=== PATIENT | male | born 1955 | race American Indian/Alaskan Native ===

== ENCOUNTER 2016-06-24 21:18 | Inpatient (IN) | payer MEDICARE, OTHER ==
[2016-06-24 21:35] VITALS: BMI 26.5
[2016-06-24] MEDS ORDERED: Piperacillin/Tazobact 3.375 gm 100 ML IVPB STA (22:06)
[2016-06-24] MEDS ORDERED: Vancomycin 500 mg Inj IVPB STA (22:06)
--- NOTE | 2016-06-24 22:16 | ED PDOC ---
Arrival/HPI - General Chief Complaint: Lower Extremity Problem/Injury Time Seen by Provider: 06/24/16 21:19 - History of Present Illness Narrative History of Present Illness (Text): 60M c/o wound on his right ankle he noticed 2 days ago. he says he noticed some skin breakdown so he placed some ointment and a bandage which has been in place since. he has a chronic wound on the left leg for which he goes to the wound clinic. he denies any pain or fever. Past Medical History - Infectious Disease Hx of Infectious Diseases: None - Integumentary Other/Comment: Varicose Veins - Musculoskeletal/Rheumatological Hx Fractures: Yes (L hip) - Psychiatric Hx Substance Use: No - Surgical History Hx Joint Replacement: Yes (L THR) Other/Comment: L vein stripping - Anesthesia Hx Anesthesia: Yes Hx Anesthesia Reactions: No Hx Malignant Hyperthermia: No Family/Social History Family/Social History: Other (nc) Smoking Status: Former Smoker Hx Alcohol Use: Yes Frequency of alcohol use: Socially Hx Substance Use: No Allergies/Home Meds Allergies/Adverse Reactions: Allergies No Known Allergies Allergy (Verified 07/18/11 13:39) Home Medications: Home Meds Medication Instructions Recorded Confirmed No Known Home Med 06/24/16 06/24/16 Review of Systems - Physician Review All systems were reviewed & negative as marked: Yes - Review of Systems Constitutional: absent: Fevers Respiratory: absent: SOB, Cough Cardiovascular: absent: Chest Pain Gastrointestinal: absent: Abdominal Pain, Vomiting Skin: Ulcer Neurological: absent: Focal Weakness Physical Exam Vital Signs Reviewed: Yes Vital Signs Temp Pulse Resp BP Pulse Ox 06/24/16 21:40 98.6 F 90 18 143/91 H 98 Appearance: Positive for: Well-Appearing, Non-Toxic, Comfortable Pain Distress: None Mental Status: Positive for: Alert and Oriented X 3 - Systems Exam Head: Present: Atraumatic Pupils: Present: PERRL Mouth: Present: Moist Mucous Membranes Neck: Present: Normal Range of Motion Respiratory/Chest: Present: Clear to Auscultation. No: Accessory Muscle Use Cardiovascular: Present: Regular Rate and Rhythm Abdomen: No: Tenderness Upper Extremity: Present: NORMAL PULSES Lower Extremity: Present: Edema, NORMAL PULSES (DP pulses 2+), Other (there is a 2cm wound on the right anterior ankle with exposed extensor tendon. there is another wound over the medial ankle. no purulent drainage. ) Neurological: Present: GCS=15, Motor Func Grossly Intact, Normal Sensory Function Skin: Present: Warm, Dry Medical Decision Making ED Course and Treatment: 06/24/16 22:[address] Nelson who will admit 06/24/16 22:39 ecg- nsr 79, LVH, no acute ischemia - RAD Interpretation Radiology Orders: 06/24/16 22:06 ANKLE RIGHT 3 VIEWS ROUTINE [RAD] Stat - Medication Orders Current Medication Orders: Vancomycin HCl 1,200 mg/ (Sodium Chloride) 250 mls @ 167 mls/hr IV STAT STA Stop: 06/24/16 23:43 Discontinued Medications Piperacillin Sod/Tazobactam Sod (Zosyn 3.375 In Ns 100ml) 100 mls @ 200 mls/hr IVPB STAT STA PRN Reason: Protocol Stop: 06/24/16 22:35 Disposition/Present on Arrival - Present on Arrival Any Indicators Present on Arrival: No History of DVT/PE: No History of Uncontrolled Diabetes: No Urinary Catheter: No History of Decub. Ulcer: No History Surgical Site Infection Following: None - Disposition Have Diagnosis and Disposition been Completed?: Yes Diagnosis: Open ankle wound Disposition: HOSPITALIZED Disposition Time: 22:19 Patient Problems: Current Active Problems Problem Status Diagnosed Open ankle wound Acute Condition: STABLE
[2016-06-24 22:54] LABS: ADD MANUAL DIFF? NO
[2016-06-24 23:09] LABS: BASO # 0.04 K/mm3 (0.0-2.0); BASO % 0.3 % (0.0-3.0); EOS # 0.3 (0.0-0.7); EOS % 2.5 % (1.5-5.0); GRAN # 8.25 (1.4-6.5); GRAN % 65.4 % (50.0-68.0); HEMATOCRIT 41.3 % (42.0-52.0); LYMPH # 2.4 (1.2-3.4); LYMPH % 18.7 % (22.0-35.0); MEAN CELL VOLUME 92.4 fL (80.0-105.0); MEAN CORPUSCULAR HEMOGLOBIN 33.3 pg (25.0-35.0); MEAN CORPUSCULAR HGB CONC 36.1 g/dl (31.0-37.0); MONO # 1.7 (0.1-0.6); MONO % 13.1 % (1.0-6.0); PLATELET COUNT 230 10^3/uL (120.0-450.0); WHITE BLOOD COUNT 12.6 10^3/ul (4.5-11.0)
[2016-06-24 23:10] LABS: INR 1.14 (0.93-1.08)
[2016-06-24 23:11] LABS: ALB/GLOB RATIO 0.7 (1.1-1.8); ALKALINE PHOSPHATASE 99 U/L (38-133); ALT/SGPT 30 U/L (7-56); AST/SGOT 56 U/L (15-59); BILIRUBIN,TOTAL 1.3 mg/dL (0.2-1.3); BLOOD UREA NITROGEN 8 mg/dL (7-21); CALCIUM 9.3 mg/dL (8.4-10.5); CARBON DIOXIDE 26 mmol/L (21-33); CHLORIDE 96 mmol/L (98-107); GFR AFRICAN-AMERICAN > 60; GLUCOSE,RANDOM 109 mg/dL (70-110); POTASSIUM 3.5 mmol/L (3.6-5.0); SODIUM 135 mmol/L (132-148); TOTAL PROTEIN 9.9 g/dL (5.8-8.3)
--- NOTE | 2016-06-25 08:38 | RAD ---
PROCEDURE: Right Wrist Radiographs. HISTORY: wound COMPARISON: None. FINDINGS: BONES: No fracture. JOINTS: Severe degenerative changes with talonavicular spur formation SOFT TISSUES: Diffuse soft tissue swelling. OTHER FINDINGS: None. IMPRESSION: Degenerative changes. No acute fracture.
[2016-06-25] MEDS ORDERED: Oxycodone/Acetaminophen 5/325 mg Tab PO PRN (08:41)
[2016-06-25] MEDS ORDERED: Potassium Chloride 20 mEq ER Tab PO ONE (08:41)
[2016-06-25] MEDS: Vancomycin 1gm in NS 250ml 250 ML IVPB SCH ×2 (10:23→21:34)
[2016-06-25] MEDS: Piperacillin/Tazobact 3.375 gm 100 ML IVPB SCH ×2 (12:13→17:24)
--- NOTE | 2016-06-25 13:33 | CON ---
DATE: 06/25/2016 HISTORY OF PRESENT ILLNESS: A 60-year-old male well known to the [facility] Wound care t eam, seen at bedside for consultation, evaluation and management of recent ulcerations on his right l ower leg. The patient stated that when he got out of the shower on Monday, which was 3 days ago, he noticed drainage coming out of his right lower leg. In the following 2 days, the wounds got worse and he went to the Emergency Room Monday night. PAST MEDICAL HISTORY: Significant for severe peripheral vascular disease, hypertension and longstand ing lower extremity ulcerations. HOME MEDICATIONS: Include Norvasc. ALLERGIES: The patient has no known drug allergies. SOCIAL HISTORY: The patient lives alone, has no history of substance abuse. Denies smoking, was a f ormer heavy drinker. No longer drinks and denies illicit drug use. FAMILY HISTORY: Unremarkable. PAST SURGICAL HISTORY: Includes left venous stripping and left hip joint replacement. VITAL SIGNS: Reveal a temperature of 98.2, pulse rate of 92, blood pressure 137/93, respiratory rate of 20. LABORATORY DATA: Reveal a white count of 12.6, hemoglobin of 14.9, hematocrit of 41.3, platelet coun t of 230. Culture taken in the Emergency Room on 06/24 reveals gram-negative rods, gram-positive cocc i with sensitivities to follow. OBJECTIVE: Left lower leg is bandaged and shows no strikethrough or drainage. Right lower extremity presents with nonpalpable pedal pulses +2 nonpitting lower extremity edema. There are 2 full thickn ess ulcerations located at the distal anterior and distal medial aspect of the lower leg. The anteri or ulceration measures approximately 1.2 cm x 1.3 cm x 0.3 cm. There is visible exposed anterior tib ial tendon present. The medial ulceration presents measuring approximately 1.4 cm x 1.1 cm x 0.2 cm. Base of the ulceration is primarily a mixture of granular and fibrotic tissue. None of the ulcerat ions are draining purulence and there are no signs of abscess formation noted. ASSESSMENT: Full thickness venous ulcerations on the right lower leg with localized cellulitis. PLAN: The patient was examined. Labs and cultures were reviewed. X-rays report no radiographic santiago dence of osteomyelitis. However, given the depths of the anterior right lower leg wound, MRI is veronique anted to rule out any underlying abscess or osteomyelitis that may be present. The wounds were clean sed with normal sterile saline. We will apply Xeroform and a compression dressing. The patient is c urrently on Zosyn empirically and we will await culture and sensitivity results. Recommend immediate consults by vascular, specifically Dr. Sunny Jacobs, to evaluate arterial and venous Dopplers, which will be ordered today and recommend infectious disease consult to review culture and sensitivity and prescribe accordingly. The patient will be seen and followed daily. Chuckie Almazan DPM cc: [id number] TT: 06/25/2016 13:32:51 Confirmation # [id number] Dictation # [id number] girma
--- NOTE | 2016-06-25 13:39 | CP.PCM.CON ---
History of Present Illness - History of Present Illness History of Present Illness: 60 year old male with PMH of HTN, peripheral vascular disease, chronic lymphedema with venous stasis ulcers, left hip fracture S/P total hip replacement is admitted currently in [facility] because of worsening of ulcers on the right foot and ankle area, with some foul smell and drainage of fluid. The patient states it started about a week ago. He follows at the wound center with Dr. Escamilla and is still being treated for his left ankle ulcers. The patient states he has not been on antibiotics since late last year. He denies animal contacts, denies wading in water, no swimming, no walking barefoot on soil, no animal contacts, no insect bites. He also denies fever or chills, no nausea or vomiting, no chest pain, no SOB, no abdominal pain , no diarrhea, no dysuria, no headache or dizziness, no cough or colds, no sore throat, no blurring of vision. Infectious diseases consult is requested to further evaluate and manage. Review of Systems - Review of Systems All systems: reviewed and no additional remarkable complaints except (as per HPI ) Past Patient History - Infectious Disease Hx of Infectious Diseases: None - Past Social History Smoking Status: Never Smoked - CARDIAC Hx Cardiac Disorders: Yes Hx Hypertension: Yes Hx Peripheral Edema: Yes Hx Peripheral Vascular Disease: Yes - PULMONARY Hx Respiratory Disorders: No - NEUROLOGICAL Hx Neurological Disorder: No Other/Comment: wears eye glasses - HEENT Hx HEENT Problems: Yes Hx Blind: Yes (wears glasses) - RENAL Hx Chronic Kidney Disease: No - ENDOCRINE/METABOLIC Hx Endocrine Disorders: No - HEMATOLOGICAL/ONCOLOGICAL Hx Blood Disorders: No - INTEGUMENTARY Hx Dermatological Problems: No Other/Comment: skin breakdown due to venous stasis in BLE - MUSCULOSKELETAL/RHEUMATOLOGICAL Hx Musculoskeletal Disorders: Yes Hx Falls: No Hx Fractures: Yes (L HIP) Hx Unsteady Gait: Yes - GASTROINTESTINAL Hx Gastrointestinal Disorders: No - GENITOURINARY/GYNECOLOGICAL Hx Genitourinary Disorders: No - PSYCHIATRIC Hx Psychophysiologic Disorder: No - SURGICAL HISTORY Hx Surgeries: Yes Hx Joint Replacement: Yes (L total hip replacement) - ANESTHESIA Hx Anesthesia: Yes Hx Anesthesia Reactions: No Hx Malignant Hyperthermia: No Meds Allergies/Adverse Reactions: Allergies Allergy/AdvReac Type Severity Reaction Status Date / Time No Known Allergies Allergy Verified 05/14/12 13:39 - Medications Medications: Current Medications Amlodipine Besylate (Norvasc) 5 mg PO DAILY [facility]IS Oxycodone/Acetaminophen (Percocet 5/325 Mg Tab) 1 tab PO Q4H PRN PRN Reason: Pain, moderate (4-7) Stop: 06/28/16 08:42 Physical Exam - Constitutional Appears: Non-toxic, No Acute Distress - Head Exam Head Exam: NORMAL INSPECTION - ENT Exam ENT Exam: Mucous Membranes Moist - Neck Exam Neck exam: Negative for: Lymphadenopathy, Meningismus - Respiratory Exam Respiratory Exam: Decreased Breath Sounds - Cardiovascular Exam Cardiovascular Exam: +S1, +S2 - GI/Abdominal Exam GI & Abdominal Exam: Soft. absent: Tenderness - Extremities Exam Additional comments: left foot with dry dressings in place; right foot with open ulcers on the anterior portion of the ankle joint as well as the medial portion; there is diffuse swelling of the right ankle area with chronic skin changes; there is serosanguinous discharge from the ulcers with foul smell Results - Vital Signs Recent Vital Signs: Last Vital Signs Temp 98.2 F 06/25/16 08:17 Pulse 92 H 06/25/16 08:17 Resp 20 06/25/16 08:17 BP 137/93 H 06/25/16 08:17 Pulse Ox 96 06/25/16 08:17 - Labs Result Diagrams: 06/24/16 22:40 06/24/16 22:40 Labs: Laboratory Results - last 24 hr 06/24/16 22:40 WBC 12.6 H D RBC 4.47 Hgb 14.9 Hct 41.3 L MCV 92.4 MCH 33.3 MCHC 36.1 RDW 12.0 Plt Count 230 MPV 9.0 Gran % 65.4 Lymph % (Auto) 18.7 L [place] % (Auto) 13.1 H Eos % (Auto) 2.5 Baso % (Auto) 0.3 Gran # 8.25 H Lymph # 2.4 [place] # 1.7 H Eos # 0.3 Baso # 0.04 PT 12.3 H INR 1.14 H APTT 32.0 H Sodium 135 Potassium 3.5 L Chloride 96 L Carbon Dioxide 26 Anion Gap 17 BUN 8 Creatinine 0.7 Est GFR ( Amer) > 60 Est GFR (Non-Af Amer) > 60 Random Glucose 109 Calcium 9.3 Total Bilirubin 1.3 AST 56 ALT 30 Alkaline Phosphatase 99 Total Protein 9.9 H Albumin 4.2 Globulin 5.7 Albumin/Globulin Ratio 0.7 L Assessment & Plan - Assessment and Plan (Free Text) Plan: Assessment Sepsis probably secondary to infected right ankle ulcers with skin and skin structure infection R/O osteomyelitis, in a patient with venous stasis and chronic lymphedema HTN peripheral vascular disease chronic lymphedema with venous stasis ulcers left hip fracture S/P total hip replacement Plan Started patient on Vancomycin and Zosyn (based on previous cultures) pending wound cx, blood cx; follow up MRI of the right foot Follow up Podiatry recommendations Will follow clinically
--- NOTE | 2016-06-25 13:52 | CP.PCM.CON ---
<Daniel Henriquez - Last Filed: 06/26/16 05:45> History of Present Illness - History of Present Illness History of Present Illness: General Surgery Consult Note for Dr. Lyles CC: Right Leg Ulcer HPI: This is a 60M with a PMH of peripheral vascular disease, chronic lymphedema , venous stasis ulcers and HTN prsents to the ED due to a new ulcer that is present on his right ankle. He currently has a wrap on his left leg and ankle that he requested I not remove. He desicribes that he has a venous ulcer on that leg and that it was wrapped at the podiatry clinic with instruction not to remove it. On the right foot he describes a history of a dry scaling right lower extremity that had a wrap on it for his lymphedema. The patient reports that last week when removing his wrap from his leg a dry part fell off exposing a new foul smelling ulcer. He denies any fevers, or chills at home, any nausea vomiting or diarrhea. PMH: See above PSH: Left Hip replacement, left vein stripping ALL: NKDA Social: Former smoker, drinks weekly, denies drug use Family History: non contributory Review of Systems - Review of Systems All systems: reviewed and no additional remarkable complaints except - Integumentary Integumentary: Wounds Additional comments: Bilateral skin changes due to venous stasis, including pigment changes and ulcerations. Past Patient History - Infectious Disease Hx of Infectious Diseases: None - Past Social History Smoking Status: Never Smoked - CARDIAC Hx Cardiac Disorders: Yes Hx Hypertension: Yes Hx Peripheral Edema: Yes Hx Peripheral Vascular Disease: Yes - PULMONARY Hx Respiratory Disorders: No - NEUROLOGICAL Hx Neurological Disorder: No Other/Comment: wears eye glasses - HEENT Hx HEENT Problems: Yes Hx Blind: Yes (wears glasses) - RENAL Hx Chronic Kidney Disease: No - ENDOCRINE/METABOLIC Hx Endocrine Disorders: No - HEMATOLOGICAL/ONCOLOGICAL Hx Blood Disorders: No - INTEGUMENTARY Hx Dermatological Problems: No Other/Comment: skin breakdown due to venous stasis in BLE - MUSCULOSKELETAL/RHEUMATOLOGICAL Hx Musculoskeletal Disorders: Yes Hx Falls: No Hx Fractures: Yes (L HIP) Hx Unsteady Gait: Yes - GASTROINTESTINAL Hx Gastrointestinal Disorders: No - GENITOURINARY/GYNECOLOGICAL Hx Genitourinary Disorders: No - PSYCHIATRIC Hx Psychophysiologic Disorder: No - SURGICAL HISTORY Hx Surgeries: Yes Hx Joint Replacement: Yes (L total hip replacement) - ANESTHESIA Hx Anesthesia: Yes Hx Anesthesia Reactions: No Hx Malignant Hyperthermia: No Meds Allergies/Adverse Reactions: Allergies Allergy/AdvReac Type Severity Reaction Status Date / Time No Known Allergies Allergy Verified 07/18/11 13:39 - Medications Medications: Current Medications Amlodipine Besylate (Norvasc) 5 mg PO DAILY [facility] Last Admin: 06/25/16 10:36 Dose: Not Given Piperacillin Sod/Tazobactam Sod (Zosyn 3.375 In Ns 100ml) 100 mls @ 200 mls/hr IVPB Q6 REGIS PRN Reason: Protocol Stop: 07/02/16 12:01 Last Admin: 06/25/16 12:13 Dose: 200 mls/hr Vancomycin HCl (Vancomycin 1gm) 250 mls @ 167 mls/hr IVPB Q12H REGIS PRN Reason: Protocol Last Admin: 06/25/16 10:23 Dose: 167 mls/hr Oxycodone/Acetaminophen (Percocet 5/325 Mg Tab) 1 tab PO Q4H PRN PRN Reason: Pain, moderate (4-7) Stop: 06/28/16 08:42 Physical Exam - Constitutional Appears: Non-toxic, No Acute Distress - Head Exam Head Exam: ATRAUMATIC, NORMOCEPHALIC - Eye Exam Eye Exam: EOMI, Normal appearance - Respiratory Exam Respiratory Exam: NORMAL BREATHING PATTERN - Cardiovascular Exam Cardiovascular Exam: +S1, +S2 - GI/Abdominal Exam GI & Abdominal Exam: Soft. absent: Distended, Firm, Guarding - Extremities Exam Additional comments: Roughly 1.5 cm ulcer on the ventral aspect of the right ankle with exposed tendon, roughly 1.5 cm ulcer posterior to the medial maleolus without bony or tenous structures visualized. Hyperpigmented skin on the lower extremity. Right lower extremity bandaged. Foot warm with strong capillary refill. Upper extremity pulses palpable bilaterally. - Neurological Exam Neurological exam: Alert, Oriented x3 - Psychiatric Exam Psychiatric exam: Normal Affect, Normal Mood - Skin Skin Exam: Dry, Intact Results - Vital Signs Recent Vital Signs: Last Vital Signs Temp 98.2 F 06/25/16 08:17 Pulse 84 06/25/16 10:36 Resp 20 06/25/16 08:17 BP 130/92 H 06/25/16 10:36 Pulse Ox 96 06/25/16 08:17 - Labs Result Diagrams: 06/24/16 22:40 06/24/16 22:40 Labs: Laboratory Results - last 24 hr 06/24/16 22:40 WBC 12.6 H D RBC 4.47 Hgb 14.9 Hct 41.3 L MCV 92.4 MCH 33.3 MCHC 36.1 RDW 12.0 Plt Count 230 MPV 9.0 Gran % 65.4 Lymph % (Auto) 18.7 L [place] % (Auto) 13.1 H Eos % (Auto) 2.5 Baso % (Auto) 0.3 Gran # 8.25 H Lymph # 2.4 [place] # 1.7 H Eos # 0.3 Baso # 0.04 PT 12.3 H INR 1.14 H APTT 32.0 H Sodium 135 Potassium 3.5 L Chloride 96 L Carbon Dioxide 26 Anion Gap 17 BUN 8 Creatinine 0.7 Est GFR ( Amer) > 60 Est GFR (Non-Af Amer) > 60 Random Glucose 109 Calcium 9.3 Total Bilirubin 1.3 AST 56 ALT 30 Alkaline Phosphatase 99 Total Protein 9.9 H Albumin 4.2 Globulin 5.7 Albumin/Globulin Ratio 0.7 L Assessment & Plan - Assessment and Plan (Free Text) Assessment: This is a 60M with a PMH of peripheral vascular disease, chronic lymphedema, venous stasis ulcers who presents with 2 new RLE ulcers. Wound care consult Consult Podiatry ID recommends Sly zosyn Followup wound, blood cx Followup MRI Elevate foot, continue compressive dressing Continue care per primary team D/W Dr. Trupti Henriquez PGY-1 <Coy Lyles - Last Filed: 10/04/16 23:35> Results - Vital Signs Recent Vital Signs: Last Vital Signs Temp 98.9 F 07/05/16 07:30 Pulse 54 L 07/05/16 08:34 Resp 18 07/05/16 07:30 BP 115/80 07/05/16 07:30 Pulse Ox 99 07/05/16 07:30 - Labs Result Diagrams: 06/26/16 13:20 06/27/16 07:30 Assessment & Plan - Assessment and Plan (Free Text) Plan: Patient was seen and examined by me. I agree with assessment and plan as per resident's note. - Date & Time Date: 06/25/16 Time: 13:05
--- NOTE | 2016-06-25 20:06 | CARD ---
APPROVED REPORT EKG Measurement Heart [id number] <Conclusion> Normal sinus rhythm Possible Left atrial enlargement Left ventricular hypertrophy Abnormal ECG
[2016-06-26] MEDS: Piperacillin/Tazobact 3.375 gm 100 ML IVPB SCH ×4 (00:49→17:18)
[2016-06-26] MEDS: Vancomycin 1gm in NS 250ml 250 ML IVPB SCH ×2 (10:55→22:05)
--- NOTE | 2016-06-26 11:40 | US ---
PROCEDURE: Right lower extremity venous US HISTORY: Leg pain and swelling. Evaluate for DVT. PHYSICIAN(S): Sunny Jacobs M.D. TECHNIQUE: Duplex sonography and color-flow Doppler with graded compression were used to evaluate the deep venous system of the right lower extremity. FINDINGS: The visualized deep venous system of the right lower extremity is sonographically normal and compressible. Normal waveforms and augmentation are seen. There is no sonographic evidence for deep venous thrombosis in the visualized segments of the right lower extremity. IMPRESSION: 1. No sonographic evidence for deep venous thrombosis in the visualized segments of the right lower extremity.
[2016-06-26] MEDS: Enoxaparin 40 mg Syringe SC SCH (13:16)
[2016-06-26] MEDS: Thiamine 100 mg/ml Inj IM SCH (13:17)
[2016-06-26] MEDS: Multivitamin Therapeutic Tab PO SCH (13:17)
[2016-06-26 13:32] LABS: HEMATOCRIT 39.8 % (42.0-52.0); MEAN CELL VOLUME 93.2 fL (80.0-105.0); MEAN CORPUSCULAR HEMOGLOBIN 33.5 pg (25.0-35.0); MEAN CORPUSCULAR HGB CONC 35.9 g/dl (31.0-37.0); MEAN PLATELET VOLUME 8.8 fl (7.0-11.0); RED CELL DISTRIBUTION WIDTH 12.1 % (11.5-14.5); WHITE BLOOD COUNT 10.2 10^3/ul (4.5-11.0)
--- NOTE | 2016-06-26 15:36 | CP.PCM.PN ---
<Cydney Escudero - Last Filed: 06/26/16 15:37> Subjective - Date & Time of Evaluation Date of Evaluation: 06/26/16 Time of Evaluation: 11:30 - Subjective Subjective: General Surgery progress note for Dr. Lyles Pt s/e at bedside. CARLOS. Patient reports some pain in the right ankle where he has the ulcers but denies any fevers, chill, chest pain, calf pain, or shortness of breath Objective - Vital Signs/Intake and Output Vital Signs (last 24 hours): Temp Pulse Resp BP Pulse Ox 98.5 F 57 L 19 113/74 98 06/26/16 08:00 06/26/16 10:56 06/26/16 08:00 06/26/16 10:56 06/26/16 08:00 Intake and Output: 06/26/16 06/26/16 06:59 18:59 Intake Total 780 960 Output Total 1375 Balance -595 960 - Medications Medications: Current Medications Amlodipine Besylate (Norvasc) 5 mg PO DAILY [facility] Last Admin: 06/26/16 10:56 Dose: Not Given Chlordiazepoxide (Librium) 10 mg PO Q8 PRN; Protocol PRN Reason: Agitation Enoxaparin Sodium (Lovenox) 40 mg SC DAILY [facility] Last Admin: 06/26/16 13:16 Dose: 40 mg Piperacillin Sod/Tazobactam Sod (Zosyn 3.375 In Ns 100ml) 100 mls @ 200 mls/hr IVPB Q6 [facility]IS PRN Reason: Protocol Stop: 07/02/16 12:01 Last Admin: 06/26/16 13:18 Dose: 200 mls/hr Vancomycin HCl (Vancomycin 1gm) 250 mls @ 167 mls/hr IVPB Q12H [facility] PRN Reason: Protocol Last Admin: 06/26/16 10:55 Dose: 167 mls/hr Multivitamins (Thera Tab) 1 tab PO DAILY [facility] Last Admin: 06/26/16 13:17 Dose: 1 tab Oxycodone/Acetaminophen (Percocet 5/325 Mg Tab) 1 tab PO Q4H PRN PRN Reason: Pain, moderate (4-7) Stop: 06/28/16 08:42 Thiamine HCl (Vitamin B1 Inj) 100 mg IM DAILY [facility] Stop: 06/29/16 08:00 Last Admin: 06/26/16 13:17 Dose: 100 mg - Labs Labs: 06/26/16 13:20 06/24/16 22:40 PT 12.3 Seconds (9.9-11.8) H 06/24/16 22:40 INR 1.14 (0.93-1.08) H 06/24/16 22:40 APTT 32.0 Seconds (23.7-30.8) H 06/24/16 22:40 - Constitutional Appears: Well, Non-toxic, No Acute Distress - Head Exam Head Exam: ATRAUMATIC, NORMOCEPHALIC - Eye Exam Eye Exam: Normal appearance. absent: Conjunctival injection, Scleral icterus - ENT Exam ENT Exam: Mucous Membranes Moist, Normal Oropharynx - Respiratory Exam Respiratory Exam: NORMAL BREATHING PATTERN. absent: Accessory Muscle Use, Respiratory Distress - Cardiovascular Exam Cardiovascular Exam: RRR - GI/Abdominal Exam GI & Abdominal Exam: Soft. absent: Distended, Tenderness - Extremities Exam Extremities Exam: absent: Calf Tenderness, Pedal Edema, Tenderness Additional comments: Right lower leg wrapped in allie bandage, kerlex bandage, abd, and xeroform with moderate sero-sanguinous fluid. Full thickness ulcers revealing tendons in the anterior right ankle as well as a partial thickness ulcer over the medial malleolus. No evidence of erythema, purulent drainage, or active bleeding from either site. Left lower leg covered with dressing per podiatry. - Neurological Exam Neurological Exam: Alert, Awake, Oriented x3 - Psychiatric Exam Psychiatric exam: Normal Affect, Normal Mood - Skin Skin Exam: Dry, Normal Color, Warm Assessment and Plan - Assessment and Plan (Free Text) Assessment: This is a 60M with a PMH of peripheral vascular disease, chronic lymphedema, venous stasis ulcers who presents with 2 new RLE ulcers. Duplex lower extremity US: no DVT MRI lower exremity pending Plan: Wound care consult Follow up podiatry recs Antibiotics per ID Followup wound, blood cx Followup MRI Elevate foot, continue dressing changes Left leg dressing care per podiatry Continue care per primary team D/W Dr. Trupti Escudero, PGY1 <Coy Lyles - Last Filed: 10/04/16 23:36> Objective - Vital Signs/Intake and Output Vital Signs (last 24 hours): Temp Pulse Resp BP Pulse Ox 98.9 F 54 L 18 115/80 99 07/05/16 07:30 07/05/16 08:34 07/05/16 07:30 07/05/16 07:30 07/05/16 07:30 - Labs Labs: 06/26/16 13:20 06/27/16 07:30 PT 12.3 Seconds (9.9-11.8) H 06/24/16 22:40 INR 1.14 (0.93-1.08) H 06/24/16 22:40 APTT 32.0 Seconds (23.7-30.8) H 06/24/16 22:40 Assessment and Plan - Assessment and Plan (Free Text) Plan: Patient was seen and examined by me. I agree with assessment and plan as per resident's note.
--- NOTE | 2016-06-26 15:49 | MRI ---
MRI right tibia and fibula History: Medial soft tissue ulcer. Comparison: None available. Technique: Multi-echo multiplanar sequences were performed through the right tibia and fibula without the use of intravenous contrast. Findings: Prominent soft tissue ulceration seen within the medial soft tissues at the level of the medial malleolus. Prominent reticulation and edema within the circumferential soft tissues suggestive for an underlying cellulitis. Prominent patchy signal abnormality seen throughout the visualized musculature at the level of the ankle and calf musculature concerning for a myositis most prominent at the level of the anterior tibialis as well as the flexor hallucis longus muscles. No discrete abscess collection identified. In correlation with the plain x-ray, there is some mild cortical thickening of the medial cortex of the distal tibia without gross increased STIR signal. This may represent a chronic periostitis. No gross signal abnormality within the marrow of the visualized osseous structures to suggest an acute osteomyelitis. Incidentally noted are severe degenerative changes noted at the level of the midfoot with prominent bony hypertrophy and osteophytosis at the dorsal aspect of the midfoot. Impression: 1. Prominent soft tissue ulceration seen within the medial soft tissues at the level of the medial malleolus. 2. Prominent reticulation and edema within the circumferential soft tissues suggestive for an underlying cellulitis. 3. Prominent patchy signal abnormality seen throughout the visualized musculature at the level of the ankle and calf musculature concerning for a myositis most prominent at the level of the anterior tibialis as well as the flexor hallucis longus muscles. 4. No discrete abscess collection identified. 5. In correlation with the plain x-ray, there is some mild cortical thickening of the medial cortex of the distal tibia without gross increased STIR signal. This may represent a chronic periostitis. No gross signal abnormality within the marrow of the visualized osseous structures to suggest an acute osteomyelitis. 6. Incidentally noted are severe degenerative changes noted at the level of the midfoot with prominent bony hypertrophy and osteophytosis at the dorsal aspect of the midfoot. These findings were preliminarily reported at 6:01 p.m. on 06/25/[address] Kimo Miranda from [facility].
--- NOTE | 2016-06-26 16:09 | RAD ---
HISTORY: hips arthritis COMPARISON: No prior FINDINGS: BONES: Status post total left hip replacement with exuberant heterotopic calcification along the femoral head and neck. 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 Loosening is not excluded. Mild degenerative changes of the right hip. JOINTS: Normal. No osteoarthritis. SOFT TISSUE: Normal. OTHER FINDINGS: None . IMPRESSION: Status post total left hip replacement with exuberant heterotopic calcification along the femoral head and neck. 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 Loosening is not excluded.
[2016-06-27] MEDS: Piperacillin/Tazobact 3.375 gm 100 ML IVPB SCH ×2 (00:47→06:41)
[2016-06-27 08:26] LABS: BLOOD UREA NITROGEN 8 mg/dL (7-21); CALCIUM 8.8 mg/dL (8.4-10.5); CARBON DIOXIDE 27 mmol/L (21-33); CHLORIDE 101 mmol/L (95-110); GFR AFRICAN-AMERICAN > 60; GLUCOSE,RANDOM 115 mg/dL (70-110); MAGNESIUM 1.7 mg/dL (1.7-2.2); POTASSIUM 3.8 mmol/L (3.6-5.0); SODIUM 137 mmol/L (132-148)
--- NOTE | 2016-06-27 08:56 | PN ---
DATE: 06/26/2016 The patient is stable. No new complaint. Currently on IV antibiotics, seen by podiatry. ID consult has been ordered. Currently on vancomycin and Zosyn. PHYSICAL EXAMINATION: VITAL SIGNS: Temperature 98.5. Heart rate is 57, blood pressure 11____/74, respirations 19, saturat ion 98% on room air. HEAD AND NECK: Normal. No JVD, no thyromegaly. CHEST: Clear, good air entry. CARDIAC: First and second sounds are normal. ABDOMEN: Soft, nontender. EXTREMITIES: Edema bilaterally. The left leg is covered was gauze and socks. Right leg with the pr oblem has been dressing changed and covered already by podiatry. IMPRESSION AND PLAN: 1. Right leg cellulitis with full thickness tear of the skin plus tendon exposures. We will follow up with surgical podiatry. Continue IV antibiotics. Continue local wound care. We will get arteria l Doppler, as well as a venous Doppler, which was negative. Continue Lovenox on daily basis for deep venous thrombosis prevention. 2. Hypertension seems stable. We will discontinue Norvasc. 3. History of alcohol abuse. We will monitor for any delirium tremens. The patient is currently [employer] just in case if he has any symptoms, and getting multivitamins, and we will follow up c popeyeically. PLAN: Continue current treatment. Continue Lovenox, multivitamins. We will add Protonix. Garth Nelson MD cc: [phone] TT: 06/27/2016 08:55:47 Confirmation # [id number] Dictation # [id number]
--- NOTE | 2016-06-27 09:07 | HP ---
DATE OF HISTORY AND PHYSICAL: 06/25/2016. A 60-year-old male with history of both legs stasis dermatitis, recurrent infection and cellulitis, c hronic venous insufficiency. The patient came in to the hospital because of his leg ulcerations/open ing wounds. HISTORY OF PRESENT ILLNESS: A 60-year-old male with a history of drinking problem chronically. He a lso has history of chronic lymphedema and venous insufficiency. Seen by Dr. Escamilla in office as out patient. Came in because of his right foot. He tied it up to control his symptoms. For whatever re ason, the patient ended up with ulceration of his skin, more infections and exposure of his underlyin g structures, including tendons. The patient came to the ER for evaluation and decided to be admitte d for cellulitis. The patient does have a history of recurrent cellulitis, wound care for both legs. Left leg seems stable, but he still has wound dressing change and seems stable. The patient does h ave a problem ambulating due to his chronic hip arthritis. He does have a history of hip replacement and he has been using the cane. The patient also does have a drinking problem. He drinks every oth er day beers. SOCIAL HISTORY: Does not smoke, never smoked. No use of drugs. ALLERGIES: No known allergy. FAMILY HISTORY: Noncontributory. PAST MEDICAL HISTORY: As in the present illness, alcohol problem, hip replacement, bilateral leg jace ous stasis and swelling, recurrent cellulitis, ulceration, and he comes on a weekly basis to Dr. Daniella bolaños for dressing changes and wound care. REVIEW OF SYSTEMS: As in the present illness. PHYSICAL EXAMINATION: VITAL SIGNS: His temperature 98.3, heart rate 70, blood pressure 140/99, respirations 20, saturation 98%. HEAD AND NECK: Normal. No JVD, no thyromegaly. CHEST: Clear. CARDIAC: First and second sounds are normal. ABDOMEN: Soft, nontender. EXTREMITIES: There is bilateral leg edema. The left leg is wrapped with socks on it, but has a dres sing on the toes area and the whole foot, and seems stable. On the right foot, there is a wound with exposed tendons and cellulitis involving 2 parts of the foot, lateral and medial. The patient also h ad swelling of both legs. Also of his right foot he has a full-thickness venous ulceration of the ri ght lower extremity with localized cellulitis with anteromedial aspect exposed and full-thickness ulc eration of the skin. NEUROLOGIC: Normal. LABORATORY DATA: White count is elevated to 12.6, hemoglobin 14.9, hematocrit 41.3, platelets 230. Chemistry: Sodium 135, potassium 3.5, chloride 96, bicarbonate 26, BUN 8, creatinine 0.7. Liver fun ction test is normal. His total protein 9.9, a little bit elevated. Albumin/globulin is normal. IMPRESSION AND PLAN: 1. Cellulitis, chronic venous insufficiency, venous ulcerations. Will admit the patient. We will g et MRI, venous ultrasound, podiatry consult, IV antibiotic, ID consult. Culture the patient for any infection - wound culture, blood culture - and probably consider other testing. 2. History of chronic alcohol abuse. Will observe for any withdrawal symptoms. 3. History of hypertension. Will monitor. If necessary, will add blood pressure medication. 4. Continue current treatment. Follow up with other consultants. Garth Nelson MD cc: [phone] TT: 06/27/2016 09:07:01 mallory
[2016-06-27] MEDS: Thiamine 100 mg/ml Inj IM SCH (10:07)
[2016-06-27] MEDS: Enoxaparin 40 mg Syringe SC SCH (10:07)
[2016-06-27] MEDS: Pantoprazole 40 mg EC Tab PO SCH (10:07)
[2016-06-27] MEDS: Multivitamin Therapeutic Tab PO SCH (10:07)
[2016-06-27] MEDS: Vancomycin 1gm in NS 250ml 250 ML IVPB SCH ×2 (10:09→21:09)
--- NOTE | 2016-06-27 11:27 | CP.PCM.PN ---
<Quentin Stevens - Last Filed: 06/27/16 12:57> Subjective - Date & Time of Evaluation Date of Evaluation: 06/27/16 Time of Evaluation: 07:00 - Subjective Subjective: SURGERY PROGRESS NOTE FOR DR. LYLES 60M seen and examined at bedside. Patient dressing changed bedside. Complains about lower extremity pain on the right. denies fevers over night. Objective - Vital Signs/Intake and Output Vital Signs (last 24 hours): Temp Pulse Resp BP Pulse Ox 98.4 F 48 L 20 126/85 97 06/27/16 07:30 06/27/16 07:30 06/27/16 07:30 06/27/16 07:30 06/27/16 07:30 Intake and Output: 06/27/16 06/27/16 06:59 18:59 Intake Total 1020 Output Total 700 Balance 320 - Medications Medications: Current Medications Amlodipine Besylate (Norvasc) 5 mg PO DAILY [facility] Last Admin: 06/27/16 10:29 Dose: Not Given Chlordiazepoxide (Librium) 10 mg PO Q8 PRN; Protocol PRN Reason: Agitation Enoxaparin Sodium (Lovenox) 40 mg SC DAILY [facility] Last Admin: 06/27/16 10:07 Dose: 40 mg Vancomycin HCl (Vancomycin 1gm) 250 mls @ 167 mls/hr IVPB Q12H [facility] PRN Reason: Protocol Last Admin: 06/27/16 10:09 Dose: 167 mls/hr Multivitamins (Thera Tab) 1 tab PO DAILY [facility] Last Admin: 06/27/16 10:07 Dose: 1 tab Oxycodone/Acetaminophen (Percocet 5/325 Mg Tab) 1 tab PO Q4H PRN PRN Reason: Pain, moderate (4-7) Stop: 06/28/16 08:42 Pantoprazole Sodium (Protonix Ec Tab) 40 mg PO ACB [facility] Last Admin: 06/27/16 10:07 Dose: 40 mg Thiamine HCl (Vitamin B1 Inj) 100 mg IM DAILY [facility] Stop: 06/29/16 08:00 Last Admin: 06/27/16 10:07 Dose: 100 mg - Labs Labs: 06/26/16 13:20 06/27/16 07:30 PT 12.3 Seconds (9.9-11.8) H 06/24/16 22:40 INR 1.14 (0.93-1.08) H 06/24/16 22:40 APTT 32.0 Seconds (23.7-30.8) H 06/24/16 22:40 - Constitutional Appears: Non-toxic, No Acute Distress - Respiratory Exam Respiratory Exam: Clear to Ausculation Bilateral, NORMAL BREATHING PATTERN - Cardiovascular Exam Cardiovascular Exam: REGULAR RHYTHM, +S1, +S2 - GI/Abdominal Exam GI & Abdominal Exam: Soft. absent: Distended, Firm, Guarding, Rigid, Tenderness , Rebound - Extremities Exam Additional comments: Right lower leg wrapped in allie bandage, kerlex bandage, abd, and xeroform with moderate sero-sanguinous fluid. Full thickness ulcers revealing tendons in the anterior right ankle as well as a partial thickness ulcer over the medial malleolus. No evidence of erythema, purulent drainage, or active bleeding from either site. Left lower leg dressing per podiatry. Assessment and Plan - Assessment and Plan (Free Text) Assessment: 60M with a PMH of peripheral vascular disease, chronic lymphedema, venous stasis ulcers who presents with 2 RLE ulcers. Duplex lower extremity US: no DVT MRI lower exremity - does not suggest acute osteomyelitis Plan: Follow up podiatry recs Antibiotics per ID Followup wound cx - MRSA, blood cx - negative Elevate foot, continue dressing changes Left leg dressing care per podiatry Continue care per primary team Further recs discuss with Dr. Trupti Stevens, PGY1 <Coy Lyles - Last Filed: 10/04/16 23:36> Objective - Vital Signs/Intake and Output Vital Signs (last 24 hours): Temp Pulse Resp BP Pulse Ox 98.9 F 54 L 18 115/80 99 07/05/16 07:30 07/05/16 08:34 07/05/16 07:30 07/05/16 07:30 07/05/16 07:30 - Labs Labs: 06/26/16 13:20 06/27/16 07:30 PT 12.3 Seconds (9.9-11.8) H 06/24/16 22:40 INR 1.14 (0.93-1.08) H 06/24/16 22:40 APTT 32.0 Seconds (23.7-30.8) H 06/24/16 22:40 Assessment and Plan - Assessment and Plan (Free Text) Plan: Patient was seen and examined by me. I agree with assessment and plan as per resident's note.
--- NOTE | 2016-06-27 15:37 | US ---
PROCEDURE: Lower extremity ELENA exam HISTORY: Peripheral vascular disease with pain and ulceration. Previous smoker PHYSICIAN(S): Sunny Jacobs MD. FINDINGS: The resting ELENA's are abnormally elevated: Right, 1.36 and left, 1.56 The brachial systolic pressures are symmetric. The high thigh pressures and waveforms are relatively normal. The PVR waveforms and pressures are normal on the right. On the left, there is no significant pressure gradient. However the PVR waveforms at the calf, ankle, and metatarsal level are decreased in amplitude. This may represent an issue with the cuffs are artifact. IMPRESSION: 1. Relatively normal ELENA and PVR examination at rest.
--- NOTE | 2016-06-27 16:54 | CON ---
DATE: 06/27/2016 I saw the patient briefly and discussed the case with Dr. Escamilla. The patient has bilateral stasis changes. A new ulceration on the right prompted admission. In addition, he has trauma induced ulceration, left leg, which Dr. Escamilla has been treating related to his prosthetic hip. The patient is somewhat noncompliant due to alcohol use and does not wear compression stockings at all times. His ELENA/PVR exam is fairly unremarkable. No further vascular workup is needed at this time. He does need compression for his stasis changes. Ideally, he would be evaluated for possible revision of his hip prosthesis if that is possible. It is difficult to adequately offload the patient in his current condition. Sunny Jacobs MD cc: [phone] TT: 06/27/2016 16:53:40 Confirmation # [id number] Dictation # [id number] MTDD
--- NOTE | 2016-06-27 17:28 | CP.PCM.PN ---
<Leila Brooke - Last Filed: 06/27/16 17:25> Subjective - Date & Time of Evaluation Date of Evaluation: 06/27/16 Time of Evaluation: 17:25 - Subjective Subjective: 60 y/o male seen at bedside with attending Dr. Escamilla for right leg wound with exposed tendon. Patient has been seeing for his left lower extremity but a few days ago noticed drainage coming from his right leg. Patient denies any acute events overnight. He denies any pain to his lower extremities. patient 's dressing remains c/d/i. Patient denies n/f/v/c/d/sob. Objective - Vital Signs/Intake and Output Vital Signs (last 24 hours): Temp Pulse Resp BP Pulse Ox 99.4 F 64 20 104/67 100 06/27/16 16:00 06/27/16 16:00 06/27/16 16:00 06/27/16 16:00 06/27/16 16:00 Intake and Output: 06/27/16 06/27/16 06:59 18:59 Intake Total 1020 720 Output Total 700 600 Balance 320 120 - Medications Medications: Current Medications Amlodipine Besylate (Norvasc) 5 mg PO DAILY [facility] Last Admin: 06/27/16 10:29 Dose: Not Given Chlordiazepoxide (Librium) 10 mg PO Q8 PRN; Protocol PRN Reason: Agitation Enoxaparin Sodium (Lovenox) 40 mg SC DAILY [facility] Last Admin: 06/27/16 10:07 Dose: 40 mg Vancomycin HCl (Vancomycin 1gm) 250 mls @ 167 mls/hr IVPB Q12H [facility] PRN Reason: Protocol Last Admin: 06/27/16 10:09 Dose: 167 mls/hr Multivitamins (Thera Tab) 1 tab PO DAILY [facility] Last Admin: 06/27/16 10:07 Dose: 1 tab Oxycodone/Acetaminophen (Percocet 5/325 Mg Tab) 1 tab PO Q4H PRN PRN Reason: Pain, moderate (4-7) Stop: 06/28/16 08:42 Pantoprazole Sodium (Protonix Ec Tab) 40 mg PO ACB [facility] Last Admin: 06/27/16 10:07 Dose: 40 mg Thiamine HCl (Vitamin B1 Inj) 100 mg IM DAILY [facility] Stop: 06/29/16 08:00 Last Admin: 06/27/16 10:07 Dose: 100 mg - Labs Labs: 06/26/16 13:20 06/27/16 07:30 PT 12.3 Seconds (9.9-11.8) H 06/24/16 22:40 INR 1.14 (0.93-1.08) H 06/24/16 22:40 APTT 32.0 Seconds (23.7-30.8) H 06/24/16 22:40 - Constitutional Appears: Well, Non-toxic, No Acute Distress - Extremities Exam Additional comments: Vasc: nonpalpable pedal pulses, +2 pitting edema, CFT < 4 sec to all digits, TG wnl Neuro: grossly diminished left lower extremity dressing remains c/d/i right lower extremity: derm= 2 full thickness ulcerations at the distal anterior and distal medial aspect of lower leg- anterior ulceration measures 1.2cm x 1.3cm x0.3cm- visible exposed anterior tibial tendon- mild serous drainage, no purulence, medial ulceration measures 1.4cm x 1.1cm x 0.2cm- base of the ulcerations are mixed fibrogranular, no signs of abscess or ascending cellulitis - Neurological Exam Neurological Exam: Alert, Awake, Oriented x3 - Psychiatric Exam Psychiatric exam: Normal Affect, Normal Mood Assessment and Plan - Assessment and Plan (Free Text) Assessment: 60 y/o male seen at bedside for right lower extremity full thickness ulceration with exposed tendon Plan: patient evaluated and chart reviewed seen at bedside with attending Dr. Escamilla labs and vitals reviewed; afebrile wound cx= MRSA applied xeroform, DSD, ABD, kerlix to RLE left leg dressing remains intact patient scheduled to go to OR on monday afternoon for graft application continue IV abx as per ID Duplex lower extremity US: no DVT MRI lower exremity - does not suggest acute osteomyelitis podiatry will continue to follow while patient remains in house <Nancie Escamilla - Last Filed: 07/10/16 13:54> Objective - Vital Signs/Intake and Output Vital Signs (last 24 hours): Temp Pulse Resp BP Pulse Ox 98.9 F 54 L 18 115/80 99 07/05/16 07:30 07/05/16 08:34 07/05/16 07:30 07/05/16 07:30 07/05/16 07:30 - Labs Labs: 06/26/16 13:20 06/27/16 07:30 PT 12.3 Seconds (9.9-11.8) H 06/24/16 22:40 INR 1.14 (0.93-1.08) H 06/24/16 22:40 APTT 32.0 Seconds (23.7-30.8) H 06/24/16 22:40 Attending/Attestation - Attestation I have personally seen and examined this patient.: Yes I have fully participated in the care of the patient.: Yes I have reviewed all pertinent clinical information, including history, physical exam and plan: Yes
--- NOTE | 2016-06-27 22:13 | CP.PCM.PN ---
Subjective - Date & Time of Evaluation Date of Evaluation: 06/27/16 Time of Evaluation: 12:20 - Subjective Subjective: Comfortable, afebrile, not in distress. Objective - Vital Signs/Intake and Output Vital Signs (last 24 hours): Temp Pulse Resp BP Pulse Ox 99.4 F 64 20 104/67 100 06/27/16 16:00 06/27/16 16:00 06/27/16 16:00 06/27/16 16:00 06/27/16 16:00 Intake and Output: 06/27/16 06/28/16 18:59 06:59 Intake Total 720 600 Output Total 600 600 Balance 120 0 - Medications Medications: Current Medications Chlordiazepoxide (Librium) 10 mg PO Q8 PRN; Protocol PRN Reason: Agitation Enoxaparin Sodium (Lovenox) 40 mg SC DAILY [facility] Last Admin: 06/27/16 10:07 Dose: 40 mg Vancomycin HCl (Vancomycin 1gm) 250 mls @ 167 mls/hr IVPB Q12H [facility] PRN Reason: Protocol Last Admin: 06/27/16 21:09 Dose: 167 mls/hr Multivitamins (Thera Tab) 1 tab PO DAILY [facility] Last Admin: 06/27/16 10:07 Dose: 1 tab Oxycodone/Acetaminophen (Percocet 5/325 Mg Tab) 1 tab PO Q4H PRN PRN Reason: Pain, moderate (4-7) Stop: 06/28/16 08:42 Pantoprazole Sodium (Protonix Ec Tab) 40 mg PO ACB [facility] Last Admin: 06/27/16 10:07 Dose: 40 mg Thiamine HCl (Vitamin B1 Inj) 100 mg IM DAILY [facility] Stop: 06/29/16 08:00 Last Admin: 06/27/16 10:07 Dose: 100 mg - Labs Labs: 06/26/16 13:20 06/27/16 07:30 PT 12.3 Seconds (9.9-11.8) H 06/24/16 22:40 INR 1.14 (0.93-1.08) H 06/24/16 22:40 APTT 32.0 Seconds (23.7-30.8) H 06/24/16 22:40 - Constitutional Appears: Non-toxic, No Acute Distress - Head Exam Head Exam: NORMAL INSPECTION - Respiratory Exam Respiratory Exam: Decreased Breath Sounds - Cardiovascular Exam Cardiovascular Exam: +S1, +S2 - GI/Abdominal Exam GI & Abdominal Exam: Soft. absent: Tenderness - Extremities Exam Additional comments: right foot with dressings in place Assessment and Plan - Assessment and Plan (Free Text) Plan: Assessment Sepsis probably secondary to infected right ankle ulcers with skin and skin structure infection and myositis with exposed tendon without evidence of osteomyelitis on MRI, in a patient with venous stasis and chronic lymphedema HTN peripheral vascular disease chronic lymphedema with venous stasis ulcers left hip fracture S/P total hip replacement Plan continue Vancomycin and Zosyn (day 3) pending alverto lwound cx, blood cx results; patient is for skin grafting this week Will follow clinically
--- NOTE | 2016-06-28 08:02 | CP.PCM.PN ---
<Davide Malik - Last Filed: 06/28/16 08:04> Subjective - Date & Time of Evaluation Date of Evaluation: 06/28/16 Time of Evaluation: 08:03 - Subjective Subjective: Dr. Davide Malik PGY1 Surgery Note for Dr. Lyles Patient seen and examined at bedside this AM with team; denies any fevers/chills , TRONCOSO, SOB, abdominal pain, N/V/D, dysuria/freq/urg, or lower extemity swelling. Objective - Vital Signs/Intake and Output Vital Signs (last 24 hours): Temp Pulse Resp BP Pulse Ox 97.8 F 51 L 20 110/80 96 06/28/16 07:30 06/28/16 07:30 06/28/16 07:30 06/28/16 07:30 06/28/16 07:30 Intake and Output: 06/28/16 06/28/16 06:59 18:59 Intake Total 600 Output Total 600 Balance 0 - Medications Medications: Current Medications Chlordiazepoxide (Librium) 10 mg PO Q8 PRN; Protocol PRN Reason: Agitation Enoxaparin Sodium (Lovenox) 40 mg SC DAILY [facility] Last Admin: 06/27/16 10:07 Dose: 40 mg Vancomycin HCl (Vancomycin 1gm) 250 mls @ 167 mls/hr IVPB Q12H [facility] PRN Reason: Protocol Last Admin: 06/27/16 21:09 Dose: 167 mls/hr Multivitamins (Thera Tab) 1 tab PO DAILY [facility] Last Admin: 06/27/16 10:07 Dose: 1 tab Oxycodone/Acetaminophen (Percocet 5/325 Mg Tab) 1 tab PO Q4H PRN PRN Reason: Pain, moderate (4-7) Stop: 06/28/16 08:42 Pantoprazole Sodium (Protonix Ec Tab) 40 mg PO ACB [facility] Last Admin: 06/27/16 10:07 Dose: 40 mg Thiamine HCl (Vitamin B1 Inj) 100 mg IM DAILY [facility] Stop: 06/29/16 08:00 Last Admin: 06/27/16 10:07 Dose: 100 mg - Labs Labs: 06/26/16 13:20 06/27/16 07:30 PT 12.3 Seconds (9.9-11.8) H 06/24/16 22:40 INR 1.14 (0.93-1.08) H 06/24/16 22:40 APTT 32.0 Seconds (23.7-30.8) H 06/24/16 22:40 - Constitutional Appears: Non-toxic - Head Exam Additional comments: Head Exam: ATRAUMATIC, NORMOCEPHALIC - Eye Exam Eye Exam: EOMI, Normal appearance - Respiratory Exam Respiratory Exam: NORMAL BREATHING PATTERN - Cardiovascular Exam Cardiovascular Exam: +S1, +S2 - GI/Abdominal Exam GI & Abdominal Exam: Soft. absent: Distended, Firm, Guarding - Extremities Exam Additional comments: Roughly 1.5 cm ulcer on the ventral aspect of the right ankle with exposed tendon, roughly 1.5 cm ulcer posterior to the medial maleolus. Hyperpigmented skin on the lower extremity. Right lower extremity bandaged; clean dry and intact. Foot warm with strong capillary refill. Upper extremity pulses palpable bilaterally. - Neurological Exam Neurological exam: Alert, Oriented x3 - Psychiatric Exam Psychiatric exam: Normal Affect, Normal Mood - Skin Skin Exam: Dry, Intact Assessment and Plan - Assessment and Plan (Free Text) Assessment: 60M with a PMHx of PAD, chronic lymphedema, venous stasis ulcers who presents with 2 RLE ulcers. Plan: Duplex lower extremity US: no DVT MRI lower exremity - does not suggest acute osteomyelitis Follow up podiatry recs; will continue as per their recs Antibiotics per ID Followup wound cx - MRSA, blood cx - negative Elevate foot, continue dressing changes Left leg dressing care per podiatry Continue care per primary team Further recs discuss with Dr. Trupti Malik PGY1 Surgery Note for Dr. Lyles <Coy Lyles - Last Filed: 10/04/16 23:37> Objective - Vital Signs/Intake and Output Vital Signs (last 24 hours): Temp Pulse Resp BP Pulse Ox 98.9 F 54 L 18 115/80 99 07/05/16 07:30 07/05/16 08:34 07/05/16 07:30 07/05/16 07:30 07/05/16 07:30 - Labs Labs: 06/26/16 13:20 06/27/16 07:30 PT 12.3 Seconds (9.9-11.8) H 06/24/16 22:40 INR 1.14 (0.93-1.08) H 06/24/16 22:40 APTT 32.0 Seconds (23.7-30.8) H 06/24/16 22:40 Assessment and Plan - Assessment and Plan (Free Text) Plan: Patient was seen and examined by me. I agree with assessment and plan as per resident's note.
--- NOTE | 2016-06-28 08:54 | PN ---
DATE: 06/27/2016 A 60-year-old male who has full thickness tear of his anterior foot due to his chronic venous insuffi ciency, chronic stasis dermatitis, chronic leg ulcers, seems to get worse after wrapping his leg by h imself with high pressure, and then resulting to cellulitis with full thickness tear. The patient wi ll go for surgery tomorrow. He has no chest pain, no short of breath, no history of cardiac disease, no nausea, no vomiting. PHYSICAL EXAMINATION: VITAL SIGNS: Temperature 99.4, heart rate 64, blood pressure 104/67, respirations 20, saturation 100 %. HEAD AND NECK: Normal. No JVD, no thyromegaly. CHEST: Clear, good air entry. CARDIAC: First and second sounds are normal. ABDOMEN: Soft, nontender. EXTREMITIES: Right leg is wrapped with gauze and has been seen by Dr. Escamilla. LABORATORY DATA: Last lab, his white count 10.2, hemoglobin 14.3, hematocrit 39.8, platelets 269. H is PT/INR 1.2. His chemistry shows sodium 137, potassium 3.8, chloride 101, bicarb 27, BUN 8, creati nine 0.8, blood sugar 115. Magnesium 1.7. IMPRESSION AND PLAN: 1. Right leg cellulitis, full thickness tear, going for grafting. Continue IV antibiotic, as per in fectious disease consult by Dr. Powell. Currently on vancomycin. 2. History of methicillin-resistant Staphylococcus aureus in the past. 3. History of alcohol abuse. Continue Librium p.r.n. Continue vitamin B1, multivitamins, and follo w up clinically. 4. The patient has difficult ambulation, is most of the time bedridden. Continue Lovenox 40 subQ da jaswant. Continue Protonix 40 IV daily for gastrointestinal prophylaxis and Lovenox for deep venous thro mbosis prophylaxis. 5. Hypertension, seems resolved. We will discontinue Norvasc. The patient seems to be doing okay. Heart rate controlled in the low 70s, and blood pressure seems stable. Continue current treatments. Follow up clinically. The patient is stable, going for surgery. Garth Nelson MD cc: [phone] TT: 06/28/2016 08:53:44 Confirmation # [id number] Dictation # [id number] jn
[2016-06-28] MEDS: Multivitamin Therapeutic Tab PO SCH (10:08)
[2016-06-28] MEDS: Pantoprazole 40 mg EC Tab PO SCH (10:08)
[2016-06-28] MEDS: Thiamine 100 mg/ml Inj IM SCH (10:08)
[2016-06-28] MEDS: Enoxaparin 40 mg Syringe SC SCH (10:08)
[2016-06-28] MEDS: Vancomycin 1gm in NS 250ml 250 ML IVPB SCH ×2 (10:09→21:25)
--- NOTE | 2016-06-28 10:26 | CP.PCM.PN ---
<Maria Esther Brookea - Last Filed: 06/28/16 10:24> Subjective - Date & Time of Evaluation Date of Evaluation: 06/28/16 Time of Evaluation: 10:24 - Subjective Subjective: 60 y/o male seen at bedside for right leg wound with exposed tendon. Patient denies any acute events overnight. He denies any pain to his lower extremities. patient's dressing remains c/d/i. Patient denies n/f/v/c/d/sob. Objective - Vital Signs/Intake and Output Vital Signs (last 24 hours): Temp Pulse Resp BP Pulse Ox 97.8 F 51 L 20 110/80 96 06/28/16 07:30 06/28/16 07:30 06/28/16 07:30 06/28/16 07:30 06/28/16 07:30 Intake and Output: 06/28/16 06/28/16 06:59 18:59 Intake Total 600 Output Total 600 Balance 0 - Medications Medications: Current Medications Chlordiazepoxide (Librium) 10 mg PO Q8 PRN; Protocol PRN Reason: Agitation Enoxaparin Sodium (Lovenox) 40 mg SC DAILY [facility] Last Admin: 06/28/16 10:08 Dose: 40 mg Vancomycin HCl (Vancomycin 1gm) 250 mls @ 167 mls/hr IVPB Q12H [facility] PRN Reason: Protocol Last Admin: 06/28/16 10:09 Dose: 167 mls/hr Multivitamins (Thera Tab) 1 tab PO DAILY [facility] Last Admin: 06/28/16 10:08 Dose: 1 tab Pantoprazole Sodium (Protonix Ec Tab) 40 mg PO ACB [facility] Last Admin: 06/28/16 10:08 Dose: 40 mg Thiamine HCl (Vitamin B1 Inj) 100 mg IM DAILY [facility] Stop: 06/29/16 08:00 Last Admin: 06/28/16 10:08 Dose: 100 mg - Labs Labs: 06/26/16 13:20 06/27/16 07:30 PT 12.3 Seconds (9.9-11.8) H 06/24/16 22:40 INR 1.14 (0.93-1.08) H 06/24/16 22:40 APTT 32.0 Seconds (23.7-30.8) H 06/24/16 22:40 - Constitutional Appears: Well, Non-toxic, No Acute Distress - Extremities Exam Additional comments: Vasc: nonpalpable pedal pulses, +2 pitting edema, CFT < 4 sec to all digits, TG wnl Neuro: grossly diminished left lower extremity dressing remains c/d/i right lower extremity: derm= 2 full thickness ulcerations at the distal anterior and distal medial aspect of lower leg- anterior ulceration measures 1.2cm x 1.3cm x0.3cm- visible exposed anterior tibial tendon- mild serous drainage, no purulence, medial ulceration measures 1.4cm x 1.1cm x 0.2cm- base of the ulcerations are mixed fibrogranular, no signs of abscess or ascending cellulitis - Neurological Exam Neurological Exam: Alert, Awake, Oriented x3 - Psychiatric Exam Psychiatric exam: Normal Affect, Normal Mood Assessment and Plan - Assessment and Plan (Free Text) Assessment: 60 y/o male seen at bedside for right lower extremity full thickness ulceration with exposed tendon Plan: patient evaluated and chart reviewed discussed in detail with attending Dr. Almazan labs and vitals reviewed; afebrile wound cx= MRSA applied xeroform, DSD, ABD, kerlix to RLE left leg dressing remains intact patient scheduled to go to OR on monday afternoon for graft application patient NPO after breakfast tomorrow continue IV abx as per ID Duplex lower extremity US: no DVT MRI lower exremity - does not suggest acute osteomyelitis podiatry will continue to follow while patient remains in house <Chuckie Almazan - Last Filed: 06/28/16 12:41> Objective - Vital Signs/Intake and Output Vital Signs (last 24 hours): Temp Pulse Resp BP Pulse Ox 97.8 F 51 L 20 110/80 96 06/28/16 07:30 06/28/16 07:30 06/28/16 07:30 06/28/16 07:30 06/28/16 07:30 Intake and Output: 06/28/16 06/28/16 06:59 18:59 Intake Total 600 Output Total 600 Balance 0 - Medications Medications: Current Medications Chlordiazepoxide (Librium) 10 mg PO Q8 PRN; Protocol PRN Reason: Agitation Enoxaparin Sodium (Lovenox) 40 mg SC DAILY [facility] Last Admin: 06/28/16 10:08 Dose: 40 mg Vancomycin HCl (Vancomycin 1gm) 250 mls @ 167 mls/hr IVPB Q12H [facility] PRN Reason: Protocol Last Admin: 06/28/16 10:09 Dose: 167 mls/hr Multivitamins (Thera Tab) 1 tab PO DAILY [facility] Last Admin: 06/28/16 10:08 Dose: 1 tab Pantoprazole Sodium (Protonix Ec Tab) 40 mg PO ACB [facility] Last Admin: 06/28/16 10:08 Dose: 40 mg Thiamine HCl (Vitamin B1 Inj) 100 mg IM DAILY [facility] Stop: 06/29/16 08:00 Last Admin: 06/28/16 10:08 Dose: 100 mg - Labs Labs: 06/26/16 13:20 06/27/16 07:30 PT 12.3 Seconds (9.9-11.8) H 06/24/16 22:40 INR 1.14 (0.93-1.08) H 06/24/16 22:40 APTT 32.0 Seconds (23.7-30.8) H 06/24/16 22:40 Attending/Attestation - Attestation I have personally seen and examined this patient.: Yes I have fully participated in the care of the patient.: Yes I have reviewed all pertinent clinical information, including history, physical exam and plan: Yes
[2016-06-29] MEDS: Pantoprazole 40 mg EC Tab PO SCH ×2 (08:01→08:03)
[2016-06-29] MEDS: Multivitamin Therapeutic Tab PO SCH (09:03)
[2016-06-29] MEDS: Enoxaparin 40 mg Syringe SC SCH (09:03)
[2016-06-29] MEDS: Vancomycin 1gm in NS 250ml 250 ML IVPB SCH ×2 (09:23→21:34)
--- NOTE | 2016-06-29 10:02 | CP.PCM.PN ---
<Daniel Henriquez - Last Filed: 06/29/16 13:12> Subjective - Date & Time of Evaluation Date of Evaluation: 06/29/16 Time of Evaluation: 06:57 - Subjective Subjective: General Surgery Progress Note for Dr. Lyles This 60M was seen and examined this AM at bedside. He reports no acute events overnight. Patient is going today for a flap with Dr. Gilliam. Denies any fevers , chills, chest pain, nausea, vomiting, diarrhea. Objective - Vital Signs/Intake and Output Vital Signs (last 24 hours): Temp Pulse Resp BP Pulse Ox 98.4 F 58 L 20 105/75 96 06/29/16 07:26 06/29/16 07:26 06/29/16 07:26 06/29/16 07:26 06/29/16 07:26 Intake and Output: 06/29/16 06/29/16 06:59 18:59 Intake Total 850 Output Total 1350 Balance -500 - Medications Medications: Current Medications Chlordiazepoxide (Librium) 10 mg PO Q8 PRN; Protocol PRN Reason: Agitation Enoxaparin Sodium (Lovenox) 40 mg SC DAILY [facility] Last Admin: 06/29/16 09:03 Dose: Not Given Vancomycin HCl (Vancomycin 1gm) 250 mls @ 167 mls/hr IVPB Q12H [facility] PRN Reason: Protocol Last Admin: 06/29/16 09:23 Dose: 167 mls/hr Multivitamins (Thera Tab) 1 tab PO DAILY [facility] Last Admin: 06/29/16 09:03 Dose: Not Given Pantoprazole Sodium (Protonix Ec Tab) 40 mg PO ACB [facility] Last Admin: 06/29/16 08:03 Dose: Not Given - Labs Labs: 06/26/16 13:20 06/27/16 07:30 PT 12.3 Seconds (9.9-11.8) H 06/24/16 22:40 INR 1.14 (0.93-1.08) H 06/24/16 22:40 APTT 32.0 Seconds (23.7-30.8) H 06/24/16 22:40 - Constitutional Appears: Non-toxic - Head Exam Head Exam: ATRAUMATIC, NORMOCEPHALIC - Eye Exam Eye Exam: EOMI, Normal appearance - ENT Exam ENT Exam: Mucous Membranes Moist, Normal Exam - Respiratory Exam Respiratory Exam: NORMAL BREATHING PATTERN - Cardiovascular Exam Cardiovascular Exam: +S1, +S2 - GI/Abdominal Exam GI & Abdominal Exam: Soft. absent: Rigid, Tenderness - Extremities Exam Additional comments: Dressing clean dry and intact - Neurological Exam Neurological Exam: Alert, Awake - Psychiatric Exam Psychiatric exam: Normal Affect, Normal Mood - Skin Skin Exam: Dry, Normal Color Assessment and Plan - Assessment and Plan (Free Text) Assessment: This is a 60M with a PMH of peripheral vascular disease, chronic lymphedema, venous stasis ulcers who presents with 2 new RLE ulcers. OR today with podiatry for flap placement. Elevate foot, continue compressive dressing Continue care per primary team D/W Dr. Trupti Henriquez PGY-1 <Coy Lyles - Last Filed: 10/04/16 23:37> Objective - Vital Signs/Intake and Output Vital Signs (last 24 hours): Temp Pulse Resp BP Pulse Ox 98.9 F 54 L 18 115/80 99 07/05/16 07:30 07/05/16 08:34 07/05/16 07:30 07/05/16 07:30 07/05/16 07:30 - Labs Labs: 06/26/16 13:20 06/27/16 07:30 PT 12.3 Seconds (9.9-11.8) H 06/24/16 22:40 INR 1.14 (0.93-1.08) H 06/24/16 22:40 APTT 32.0 Seconds (23.7-30.8) H 06/24/16 22:40 Assessment and Plan - Assessment and Plan (Free Text) Plan: Patient was seen and examined by me. I agree with assessment and plan as per resident's note.
--- NOTE | 2016-06-29 10:25 | CP.PCM.PN ---
<Leila Brooke - Last Filed: 06/29/16 10:22> Subjective - Date & Time of Evaluation Date of Evaluation: 06/29/16 Time of Evaluation: 10:22 - Subjective Subjective: 60 y/o male seen at bedside with attending Dr. Escamilla for right leg wound with exposed tendon. Patient is going to the OR this afternoon for right leg wound debridement with graft application. Patient NPO after breakfast. Patient denies any acute events overnight. He denies any pain to his lower extremities. patient 's dressing remains c/d/i. Patient denies n/f/v/c/d/sob. Objective - Vital Signs/Intake and Output Vital Signs (last 24 hours): Temp Pulse Resp BP Pulse Ox 98.4 F 58 L 20 105/75 96 06/29/16 07:26 06/29/16 07:26 06/29/16 07:26 06/29/16 07:26 06/29/16 07:26 Intake and Output: 06/29/16 06/29/16 06:59 18:59 Intake Total 850 Output Total 1350 Balance -500 - Medications Medications: Current Medications Chlordiazepoxide (Librium) 10 mg PO Q8 PRN; Protocol PRN Reason: Agitation Enoxaparin Sodium (Lovenox) 40 mg SC DAILY [facility] Last Admin: 06/29/16 09:03 Dose: Not Given Vancomycin HCl (Vancomycin 1gm) 250 mls @ 167 mls/hr IVPB Q12H [facility] PRN Reason: Protocol Last Admin: 06/29/16 09:23 Dose: 167 mls/hr Multivitamins (Thera Tab) 1 tab PO DAILY [facility] Last Admin: 06/29/16 09:03 Dose: Not Given Pantoprazole Sodium (Protonix Ec Tab) 40 mg PO ACB [facility] Last Admin: 06/29/16 08:03 Dose: Not Given - Labs Labs: 06/26/16 13:20 06/27/16 07:30 PT 12.3 Seconds (9.9-11.8) H 06/24/16 22:40 INR 1.14 (0.93-1.08) H 06/24/16 22:40 APTT 32.0 Seconds (23.7-30.8) H 06/24/16 22:40 - Constitutional Appears: Well, Non-toxic, No Acute Distress - Extremities Exam Additional comments: Vasc: nonpalpable pedal pulses, +2 pitting edema, CFT < 4 sec to all digits, TG wnl Neuro: grossly diminished left lower extremity dressing remains c/d/i right lower extremity: derm= 2 full thickness ulcerations at the distal anterior and distal medial aspect of lower leg- anterior ulceration measures 1.2cm x 1.3cm x0.3cm- visible exposed anterior tibial tendon- mild serous drainage, no purulence, medial ulceration measures 1.4cm x 1.1cm x 0.2cm- base of the ulcerations are mixed fibrogranular, no signs of abscess or ascending cellulitis - Neurological Exam Neurological Exam: Alert, Awake, Oriented x3 - Psychiatric Exam Psychiatric exam: Normal Affect, Normal Mood Assessment and Plan - Assessment and Plan (Free Text) Assessment: 60 y/o male seen at bedside for right lower extremity full thickness ulceration with exposed tendon going to OR at 4:30pm today for right leg wound debridement and graft application Plan: patient evaluated and chart reviewed seen at bedside with attending Dr. Escamilla labs and vitals reviewed; afebrile dressing remains c/d/i patient to OR at 4:[address] Escamilla for right leg wound debridement and graft application discussed with patient risks, benefits, complications of surgery medical optimization obtained continue IV abx as per ID podiatry will continue to monitor while patient remains in house <Nancie Escamilla - Last Filed: 07/10/16 13:54> Objective - Vital Signs/Intake and Output Vital Signs (last 24 hours): Temp Pulse Resp BP Pulse Ox 98.9 F 54 L 18 115/80 99 07/05/16 07:30 07/05/16 08:34 07/05/16 07:30 07/05/16 07:30 07/05/16 07:30 - Labs Labs: 06/26/16 13:20 06/27/16 07:30 PT 12.3 Seconds (9.9-11.8) H 06/24/16 22:40 INR 1.14 (0.93-1.08) H 06/24/16 22:40 APTT 32.0 Seconds (23.7-30.8) H 06/24/16 22:40 Attending/Attestation - Attestation I have personally seen and examined this patient.: Yes I have fully participated in the care of the patient.: Yes I have reviewed all pertinent clinical information, including history, physical exam and plan: Yes
--- NOTE | 2016-06-29 10:28 | PN ---
DATE: 06/28/2016 SUBJECTIVE: The patient is lying in bed, comfortable, having lunch. No chest pain, no short of adrián th, going for surgery tomorrow. No tremors, no nausea, no vomiting. PHYSICAL EXAMINATION: VITAL SIGNS: Temperature is 97.8, heart rate 51, blood pressure 110/80, respirations 20, saturation 96% on room air. HEAD AND NECK: Normal. No JVD. No thyromegaly. CHEST: Clear, good entry. CARDIAC: First and second sounds are normal. ABDOMEN: Soft, normal. EXTREMITIES: Bilateral leg edema from chronic venous stasis. Right leg is wrapped with gauze. Dres sing has been changed by Dr. Almazan. IMPRESSION AND PLAN: 1. Cellulitis, right leg, with complete skin tear, going for grafting. Continue IV antibiotic as pe r ID consult. Currently, the patient getting vancomycin. The patient does have a history of methici llin-resistant Staphylococcus aureus. 2. History of chronic alcohol abuse. Continue Librium p.r.n. basis, Protonix, Lovenox for deep veno us thrombosis prophylaxis, multivitamins, and he finished thiamine IM. Continue current treatment. W e will follow up clinically. Garth Nelson MD cc: [phone] TT: 06/29/2016 10:28:07 Confirmation # [id number] Dictation # [id number] elier
[2016-06-29] MEDS ORDERED: Bupivacaine 0.5% Inj(30mL) ONE (15:58)
[2016-06-29] MEDS ORDERED: Lidocaine 2% Inj (20ml) ONE ×2 (15:58→16:32)
[2016-06-29] MEDS ORDERED: Propofol 10 mg/ml Inj (20 ML) ONE ×2 (16:31→17:27)
[2016-06-29] MEDS ORDERED: Midazolam 2 MG/2 ML VIAL ONE (16:31)
[2016-06-29] MEDS ORDERED: Gentamicin 80 mg/2mL Inj. ONE (16:54)
--- NOTE | 2016-06-29 17:41 | PCM.SURG1 ---
Surgeon's Initial Post Op Note - Surgeon's Notes Surgeon: Dr. Escamilla Tack Welder: Dr. Brooke PGY-1 Type of Anesthesia: MAC, Local Anesthesia Administered By: Dr. Manzanares Pre-Operative Diagnosis: right ankle nonhealing ulceration Operative Findings: see dictation. 9mL 2% lidocaine plain. skin gila. integra graft 2x2 inch. Post-Operative Diagnosis: same as preop Operation Performed: right ankle wound debridement with graft application Specimen/Specimens Removed: soft tissue Estimated Blood Loss: EBL {In ML}: 5 Blood Products Given: N/A Drains Used: No Drains Post-Op Condition: Good Date of Surgery/Procedure: 06/29/16 Time of Surgery/Procedure: 17:00
[2016-06-29] MEDS ORDERED: HYDROmorphone 0.5 mg/0.5 ml ISec IVP PRN (17:42)
[2016-06-29] MEDS ORDERED: Lactated Ringer's 1,000 ML IV SCH (17:42)
[2016-06-29] MEDS ORDERED: Oxycodone/Acetaminophen 5/325 mg Tab PO PRN (17:42)
[2016-06-29] MEDS: Oxycodone/Acetaminophen 5/325 mg Tab PO PRN (21:37)
--- NOTE | 2016-06-29 21:55 | CP.PCM.PN ---
Subjective - Date & Time of Evaluation Date of Evaluation: 06/29/16 Time of Evaluation: 12:25 - Subjective Subjective: Patient is for surgery today, no fevers. Objective - Vital Signs/Intake and Output Vital Signs (last 24 hours): Temp Pulse Resp BP Pulse Ox 98.5 F 52 L 17 105/72 99 06/29/16 18:39 06/29/16 18:39 06/29/16 18:39 06/29/16 18:39 06/29/16 18:39 Intake and Output: 06/29/16 06/30/16 18:59 06:59 Intake Total 705 Output Total 1200 Balance -495 - Medications Medications: Current Medications Acetaminophen (Tylenol 325mg Tab) 650 mg PO Q4H PRN PRN Reason: Pain, Mild (1-3) Chlordiazepoxide (Librium) 10 mg PO Q8 PRN; Protocol PRN Reason: Agitation Clotrimazole (Lotrimin 1%) 0 gm TOP BID [facility] Enoxaparin Sodium (Lovenox) 40 mg SC DAILY [facility] Last Admin: 06/29/16 09:03 Dose: Not Given Vancomycin HCl (Vancomycin 1gm) 250 mls @ 167 mls/hr IVPB Q12H [facility] PRN Reason: Protocol Last Admin: 06/29/16 21:34 Dose: 167 mls/hr Multivitamins (Thera Tab) 1 tab PO DAILY [facility] Last Admin: 06/29/16 09:03 Dose: Not Given Ondansetron HCl (Zofran Inj) 4 mg IVP ONCE PRN PRN Reason: Nausea/Vomiting Oxycodone/Acetaminophen (Percocet 5/325 Mg Tab) 1 tab PO Q4H PRN PRN Reason: Pain, moderate (4-7) Stop: 07/02/16 17:43 Last Admin: 06/29/16 21:37 Dose: 1 tab Oxycodone/Acetaminophen (Percocet 5/325 Mg Tab) 2 tab PO Q4H PRN PRN Reason: Pain, severe (8-10) Stop: 07/02/16 17:43 Pantoprazole Sodium (Protonix Ec Tab) 40 mg PO ACB [facility] Last Admin: 06/29/16 08:03 Dose: Not Given - Labs Labs: 06/26/16 13:20 06/27/16 07:30 PT 12.3 Seconds (9.9-11.8) H 06/24/16 22:40 INR 1.14 (0.93-1.08) H 06/24/16 22:40 APTT 32.0 Seconds (23.7-30.8) H 06/24/16 22:40 - Constitutional Appears: Non-toxic, No Acute Distress - Head Exam Head Exam: NORMAL INSPECTION - ENT Exam ENT Exam: Mucous Membranes Moist - Neck Exam Neck Exam: absent: Lymphadenopathy, Meningismus - Respiratory Exam Respiratory Exam: Decreased Breath Sounds - Cardiovascular Exam Cardiovascular Exam: +S1, +S2 - GI/Abdominal Exam GI & Abdominal Exam: Soft. absent: Tenderness Assessment and Plan - Assessment and Plan (Free Text) Plan: Assessment Sepsis probably secondary to infected right ankle ulcers with skin and skin structure infection and myositis with exposed tendon without evidence of osteomyelitis on MRI, in a patient with venous stasis and chronic lymphedema, growing MRSA - for skin grafting today HTN peripheral vascular disease chronic lymphedema with venous stasis ulcers left hip fracture S/P total hip replacement Plan continue Vancomycin (day 4); follow up results of the OR Will follow clinically
--- NOTE | 2016-06-29 22:22 | PN ---
DATE: 06/29/2016 HISTORY OF PRESENT ILLNESS: The patient is sitting in the bed, comfortable, no distress, afebrile. B lood pressure stable, currently on vancomycin IV antibiotic and going for surgery for graft. No othe r complaint. No chest pain, not short of breath. PHYSICAL EXAMINATION: VITAL SIGNS: Temperature 98.5, heart rate 60, blood pressure 104/59, respirations 16, saturating 99% on 3 liters nasal cannula. HEAD AND NECK: Normal. No JVD, no thyromegaly. CHEST: Clear, good entry. CARDIAC: First sound, second sound normal. ABDOMEN: Soft, obese, nontender. EXTREMITIES: Right leg is wrapped with gauze all around the ankle area and left leg with under lying multilayer of gauze. NEUROLOGIC: The patient moves all extremities. He is alert, awake, oriented x 3. IMPRESSION AND PLAN: 1. Right leg cellulitis, full thickness tear of the skin and going for graft. Continue IV antibioti c, vancomycin. 2. History of alcohol abuse, drinking alcohol. Continue thiamine. Continue multivitamins. Librium p.r.n. for that reason. Continue gastrointestinal and deep venous thrombosis prophylaxis. We will f ollow up clinically. Garth Nelson MD cc: [phone] TT: 06/29/2016 22:22:14 Confirmation # [id number] Dictation # [id number] ln
[2016-06-30] MEDS: Pantoprazole 40 mg EC Tab PO SCH (07:44)
[2016-06-30] MEDS: Oxycodone/Acetaminophen 5/325 mg Tab PO PRN (07:44)
--- NOTE | 2016-06-30 07:52 | OP ---
PROCEDURE DATE: 06/29/2016 SURGEON: Dr. Nancie Escamilla, DPCar. FIELD TRAINING MANAGER: Dr. Hoang, PGY-1. CAFE WORKER: Dr. Hebert Manzanares. ANESTHESIA: IV sedation with local. PREOPERATIVE DIAGNOSIS: Nonhealing ulceration with exposed tendon to the right leg. POSTOPERATIVE DIAGNOSIS: Nonhealing ulceration with exposed tendon to the right leg. PROCEDURE PERFORMED: Debridement of wound with application of Integra skin graft. INDICATIONS: The patient is a 60-year-old male with the above diagnoses. The patient has exhausted all conservative treatment at this time and now requires surgical intervention. The patient signed the consent after careful explanation of risks, benefits, complications and alternatives for surgical procedure. No guarantees were given nor implied. N.p.o. status was confirmed prior to taking the patient to the OR. PREPARATION: The patient was brought into the operating room and placed on the operating room table in a supine position. Timeout was performed for identification of the correct patient and procedure. After induction of IV sedation, the patient received a total of 9 mL of 2% lidocaine plain in a local block type fashion. Once local anesthesia was achieved, the right foot and ankle was then prepped and draped in normal sterile manner and the procedure began. No tourniquet was used during the procedure. PROCEDURE: Attention was then directed to the anterior and medial aspect of the right lower extremity where the 2 ulcerations are located. The first and more anterior ulceration is located at the level of the ankle joint measuring 3 cm x 2 cm x 0.5 cm and shows exposed tendon. The more medial ulceration measures 1.5 cm x 1.0 cm x 0.2 cm and is superficial with no bone or tendon exposed. The anterior ulceration at the ankle joint was then gently debrided using sterile #15 blade and pickups to excisionally debride and remove all necrotic devitalized nonviable tissue. The necrotic soft tissue was sent to pathology. Deep wound cultures were taken at this time. Next, the site was then flushed using a 3 liter Simpulse VAC irrigation system with gentamicin solution and copiously flushed and cleansed the wound. Next, an Integra graft measuring 2 inches x 2 inches was cut in half and half was placed over the anterior wound and half was placed on the medial wound. [place] were then used to secure the graft in place. Xeroform, dry sterile dressing, Kerlix was applied to the right ankle, then a posterior splint using Webril and ALHAJI was placed on the right lower extremity. POSTOPERATIVE CONDITION: The patient tolerated the anesthesia and procedure well and was escorted to the recovery room with vital signs stable and neurovascular status intact to the right leg. Podiatry will continue to follow the patient while the patient remains inhouse and will follow up with Dr. Escamilla as an outpatient. HERB HOANG DPM Nancie Escamilla DPM cc: [id number] TT: 06/30/2016 02:50:19 mn [id number]
[2016-06-30] MEDS: Vancomycin 1gm in NS 250ml 250 ML IVPB SCH ×2 (09:23→21:21)
[2016-06-30] MEDS: Multivitamin Therapeutic Tab PO SCH (09:23)
[2016-06-30] MEDS: Enoxaparin 40 mg Syringe SC SCH (09:23)
--- NOTE | 2016-06-30 09:33 | PN ---
DATE: 06/30/2016 This is a 60-year-old male seen for ulceration to his right leg, which is of new onset. The patient has a history of venous stasis ulceration with secondary pressure issues on the lateral ankle of his left leg, which we [facility]. He, at this time, has an Unna boot c lean, dry and intact to that side and there is no breakthrough drainage. His right lower extremity d oes, however, was last night brought into the operating room, at which time we debrided and cleaned t he new anterior ankle ulcer which patient received after placing a very tight compressive dressing on the area on his own at home. During that procedure last night, the tibialis anterior tendon was exp osed approximately 2 cm. There was also a tunneling sinus tract up along that anterior compartment, approximately cm in depth. We did copiously clean and flush that sinus tract out last night an d then put a packing in it. We also put an Integra skin graft over the tendon to protect it and to h elp it heal. Today, patient states he is having some pain, but not very much. VITAL SIGNS: Reviewed. His temperature is 97.8, his blood pressure is 104/74, his respirations were 20. LABORATORIES: Reviewed. His white blood cell count is 10.2. His chemistries were also reviewed and his BUN and creatinine is 8 and 0.8. His random glucose was 115. The rest of the SMA was grossly w ithin normal limits. Microbiology shows on 06/24, his wound stain was positive for MRSA. We did repe at deep tissue cultures from that sinus tract last night and those cultures are pending. Blood cultu res were no growth. The patient's foot is stabilized at this point in a posterior splint so that we can get at that sinus tract. We flushed it today with some Clorpactin and put a small amount of packing and there was no pus release today and the sinus tract appears to be closing at the most distal portion. The patient' s graft had a Xeroform over and that was left in place. ASSESSMENT: A stage IV ulceration to his right rowell and a venous stasis ulcer to his left ankle. PLAN OF TREATMENT: Flushing of the sinus and some repacking today. Tomorrow, we will flush that sin us one more time, pull the packing if there is no purulence and we will put him in a total contact ca st to stabilize the ankle so that wound can heal. It will be a walking cast, so we are going to try and send him to TCU so that he can learn to ambulate and be functional with the cast in place. Antib iotics will continue as per infectious disease and he will be seen and followed. Nancie Escamilla DPM cc: 112 TT: 06/30/2016 09:32:47 Confirmation # [id number] Dictation # [id number] en
--- NOTE | 2016-06-30 23:03 | PN ---
DATE: 06/30/2016 The patient is in bed, no acute distress, nontoxic, was seen earlier this morning in room 565, bed 2. PHYSICAL EXAMINATION: VITAL SIGNS: Temperature is 98, blood pressure is 109/70, respiratory rate 16. HEENT: Unremarkable. NECK: Supple. LUNGS: Have decreased breath sounds. HEART: Normal S1, S2. ABDOMEN: Soft. LABORATORY DATA: Reveals a white count of 10,000. Chemistries are noted. Microbiology reveals swetha montes has MRSA and there Staphylococcus aureus ____ blood cultures are negative. The patient is on vancomycin IV. ASSESSMENT AND PLAN: This is a 60-year-old male with sepsis with methicillin-resistant Staphylococcu s aureus ankle ulcer and skin structure infection, myositis and exposed tendon without any evidence o n MRI of osteomyelitis in a patient with hypertension and lymphedema, currently day #5 of vancomycin. Will continue the present course. Davide Powell MD cc: 350 TT: 06/30/2016 23:02:28 Confirmation # [id number] Dictation # [id number] girma
--- NOTE | 2016-07-01 02:54 | PN ---
DATE: 06/30/2016 HISTORY OF PRESENT ILLNESS: A 60-year-old male who had surgery today, grafting and wound debridement . The patient seems stable. Currently no chest pain, no short of breath. He had a bowel movement. No problem tolerating diet very well. No tremors. Blood pressure stable. PHYSICAL EXAMINATION: VITAL SIGNS: Temperature 97.8, heart rate 57, blood pressure is 104/74, respirations 20, saturation 98%. HEAD AND NECK: Normal. No JVD, no thyromegaly. CHEST: Clear, good air entry. CARDIAC: First and second sounds are normal. ABDOMEN: Soft, nontender. EXTREMITIES: The right leg is wrapped with gauze and in a cast after wound debridement and grafting by Dr. Escamilla. Left leg is already covered with gauze and socks. We will continue to monitor the c ase with podiatry and we will follow up clinically. NEUROLOGIC: Normal. IMPRESSION AND PLAN: 1. Right foot cellulitis, full-thickness tear. Status post grafting and treatment for cellulitis. I V vancomycin. History of methicillin-resistant Staphylococcus aureus. Continue current treatment. Continue wound care on a daily basis by Dr. Escamilla. 2. Chronic venous insufficiency, chronic osteoarthritis of the hips and back. Continue current treat ment. Currently, he is getting oxycodone 2 tabs every 4 hours p.r.n. 3. History of alcohol abuse. Continue Librium, multivitamins, Protonix. 4. Lovenox for deep venous thrombosis prophylaxis. 5. The patient seems stable. Will need physical therapy. Probably needs more antibiotic and TCU varun luation. Garth Nelson MD cc: 223 TT: 07/01/2016 02:54:08 Confirmation # [id number] Dictation # [id number] dn
[2016-07-01] MEDS: Pantoprazole 40 mg EC Tab PO SCH (08:21)
--- NOTE | 2016-07-01 09:14 | CP.PCM.PN ---
<Davide Malik - Last Filed: 07/01/16 09:16> Subjective - Date & Time of Evaluation Date of Evaluation: 07/01/16 Time of Evaluation: 09:10 - Subjective Subjective: Dr. Davide Malik PGY1 Surgery Note for Dr. Lyles Patient seen and examined at bedside this AM; denies any acute complaints or events overnight. Denies fevers/chills,TRONCOSO, SOB, CP, abdominal pain, N/V/D, dysuria/freq/urg, or lower extremity pain. Objective - Vital Signs/Intake and Output Vital Signs (last 24 hours): Temp Pulse Resp BP Pulse Ox 98.2 F 50 L 20 108/72 96 07/01/16 08:00 07/01/16 08:00 07/01/16 08:00 07/01/16 08:00 07/01/16 08:00 Intake and Output: 07/01/16 07/01/16 06:59 18:59 Intake Total 720 Output Total 1450 Balance -730 - Medications Medications: Current Medications Acetaminophen (Tylenol 325mg Tab) 650 mg PO Q4H PRN PRN Reason: Pain, Mild (1-3) Chlordiazepoxide (Librium) 10 mg PO Q8 PRN; Protocol PRN Reason: Agitation Clotrimazole (Lotrimin 1%) 0 gm TOP BID [facility] Enoxaparin Sodium (Lovenox) 40 mg SC DAILY [facility] Last Admin: 06/30/16 09:23 Dose: 40 mg Vancomycin HCl (Vancomycin 1gm) 250 mls @ 167 mls/hr IVPB Q12H [facility] PRN Reason: Protocol Last Admin: 06/30/16 21:21 Dose: 167 mls/hr Multivitamins (Thera Tab) 1 tab PO DAILY [facility] Last Admin: 06/30/16 09:23 Dose: 1 tab Ondansetron HCl (Zofran Inj) 4 mg IVP ONCE PRN PRN Reason: Nausea/Vomiting Oxycodone/Acetaminophen (Percocet 5/325 Mg Tab) 1 tab PO Q4H PRN PRN Reason: Pain, moderate (4-7) Stop: 07/02/16 17:43 Last Admin: 06/30/16 07:44 Dose: 1 tab Oxycodone/Acetaminophen (Percocet 5/325 Mg Tab) 2 tab PO Q4H PRN PRN Reason: Pain, severe (8-10) Stop: 07/02/16 17:43 Pantoprazole Sodium (Protonix Ec Tab) 40 mg PO ACB [facility] Last Admin: 07/01/16 08:21 Dose: 40 mg - Labs Labs: 06/26/16 13:20 06/27/16 07:30 PT 12.3 Seconds (9.9-11.8) H 06/24/16 22:40 INR 1.14 (0.93-1.08) H 06/24/16 22:40 APTT 32.0 Seconds (23.7-30.8) H 06/24/16 22:40 - Constitutional Appears: Non-toxic - Head Exam Additional comments: Head Exam: ATRAUMATIC, NORMOCEPHALIC - Eye Exam Eye Exam: EOMI, Normal appearance - ENT Exam ENT Exam: Mucous Membranes Moist, Normal Exam - Respiratory Exam Respiratory Exam: NORMAL BREATHING PATTERN - Cardiovascular Exam Cardiovascular Exam: +S1, +S2 - GI/Abdominal Exam GI & Abdominal Exam: Soft. absent: Rigid, Tenderness - Extremities Exam Additional comments: Dressing clean dry and intact - Neurological Exam Neurological Exam: Alert, Awake - Psychiatric Exam Psychiatric exam: Normal Affect, Normal Mood - Skin Skin Exam: Dry, Normal Color Assessment and Plan - Assessment and Plan (Free Text) Assessment: This is a 60M with a PMH of peripheral vascular disease, chronic lymphedema, venous stasis ulcers who presents with 2 new RLE ulcers. Post Op Day 1 for podiatry procedure Elevate foot, continue compressive dressing Continue care per primary team D/W Dr. Lyles This patient does not need any more surgical interventions Thank you for this interesting consult Please feel free to consult PRN Dr. Davide Malik PGY1 Surgery note for Dr. Lyles <Coy Lyles - Last Filed: 10/04/16 23:38> Objective - Vital Signs/Intake and Output Vital Signs (last 24 hours): Temp Pulse Resp BP Pulse Ox 98.9 F 54 L 18 115/80 99 07/05/16 07:30 07/05/16 08:34 07/05/16 07:30 07/05/16 07:30 07/05/16 07:30 - Labs Labs: 06/26/16 13:20 06/27/16 07:30 PT 12.3 Seconds (9.9-11.8) H 06/24/16 22:40 INR 1.14 (0.93-1.08) H 06/24/16 22:40 APTT 32.0 Seconds (23.7-30.8) H 06/24/16 22:40 Assessment and Plan - Assessment and Plan (Free Text) Plan: Patient was seen and examined by me. I agree with assessment and plan as per resident's note.
[2016-07-01] MEDS: Multivitamin Therapeutic Tab PO SCH (10:02)
[2016-07-01] MEDS: Enoxaparin 40 mg Syringe SC SCH (10:02)
[2016-07-01] MEDS: Vancomycin 1gm in NS 250ml 250 ML IVPB SCH (10:02)
[2016-07-01] MEDS: Clotrimazole 1% Cream(30 gm) TOP SCH ×2 (10:13→19:44)
--- NOTE | 2016-07-01 12:15 | CP.PCM.PN ---
<Leila Brooke - Last Filed: 07/01/16 12:12> Subjective - Date & Time of Evaluation Date of Evaluation: 07/01/16 Time of Evaluation: 12:12 - Subjective Subjective: 60 y/o male seen at bedside with attending Dr. Almazan 2 days s/p right leg wound debridement with integra graft application. Patient's dressing remains c/d /i, the splint remains intact to right foot and dressing remains intact to left foot and leg. Patient denies any acute events overnight. He denies any pain to his lower extremities. Patient denies n/f/v/c/d/sob. Objective - Vital Signs/Intake and Output Vital Signs (last 24 hours): Temp Pulse Resp BP Pulse Ox 98.2 F 50 L 20 108/72 96 07/01/16 08:00 07/01/16 08:00 07/01/16 08:00 07/01/16 08:00 07/01/16 08:00 Intake and Output: 07/01/16 07/01/16 06:59 18:59 Intake Total 720 Output Total 1450 Balance -730 - Medications Medications: Current Medications Acetaminophen (Tylenol 325mg Tab) 650 mg PO Q4H PRN PRN Reason: Pain, Mild (1-3) Chlordiazepoxide (Librium) 10 mg PO Q8 PRN; Protocol PRN Reason: Agitation Clotrimazole (Lotrimin 1%) 0 gm TOP BID REPLACED BY [facility] Last Admin: 07/01/16 10:13 Dose: Not Given Enoxaparin Sodium (Lovenox) 40 mg SC DAILY [facility]PL[facility] Last Admin: 07/01/16 10:02 Dose: 40 mg Multivitamins (Thera Tab) 1 tab PO DAILY [facility] Last Admin: 07/01/16 10:02 Dose: 1 tab Ondansetron HCl (Zofran Inj) 4 mg IVP ONCE PRN PRN Reason: Nausea/Vomiting Oxycodone/Acetaminophen (Percocet 5/325 Mg Tab) 1 tab PO Q4H PRN PRN Reason: Pain, moderate (4-7) Stop: 07/02/16 17:43 Last Admin: 06/30/16 07:44 Dose: 1 tab Oxycodone/Acetaminophen (Percocet 5/325 Mg Tab) 2 tab PO Q4H PRN PRN Reason: Pain, severe (8-10) Stop: 07/02/16 17:43 Pantoprazole Sodium (Protonix Ec Tab) 40 mg PO ACB REPLACED BY [facility] Last Admin: 07/01/16 08:21 Dose: 40 mg - Labs Labs: 06/26/16 13:20 06/27/16 07:30 PT 12.3 Seconds (9.9-11.8) H 06/24/16 22:40 INR 1.14 (0.93-1.08) H 06/24/16 22:40 APTT 32.0 Seconds (23.7-30.8) H 06/24/16 22:40 - Constitutional Appears: Well, Non-toxic, No Acute Distress - Extremities Exam Additional comments: Vasc: nonpalpable pedal pulses, +2 pitting edema, CFT < 4 sec to all digits, TG wnl Neuro: grossly diminished left lower extremity dressing remains c/d/i right lower extremity: derm= 2 full thickness ulcerations at the distal anterior and distal medial aspect of lower leg- anterior ulceration measures 1.2cm x 1.3cm x0.3cm- visible exposed anterior tibial tendon- mild serous drainage, no purulence, medial ulceration measures 1.4cm x 1.1cm x 0.2cm- base of the ulcerations are mixed fibrogranular, no signs of abscess or ascending cellulitis - Neurological Exam Neurological Exam: Alert, Awake, Oriented x3 - Psychiatric Exam Psychiatric exam: Normal Affect, Normal Mood Assessment and Plan - Assessment and Plan (Free Text) Assessment: 60 y/o male seen at bedside 2 days s/p right leg wound debridement and graft application Plan: patient evaluated and chart reviewed seen at bedside with attending Dr. Almazan labs and vitals reviewed; afebrile cleansed wounds with sterile saline, applied xeroform, DSD to right leg, applied BSN cast to right lower extremity cleansed left leg, applied 4 layer compressive dressing dressings to remain clean,dry,intact dispensed shoe for right foot continue IV abx as per ID podiatry will continue to monitor while patient remains in house <Chuckie Almazan - Last Filed: 07/01/16 15:25> Objective - Vital Signs/Intake and Output Vital Signs (last 24 hours): Temp Pulse Resp BP Pulse Ox 98.2 F 50 L 20 108/72 96 04/28/17 08:00 07/01/16 08:00 07/01/16 08:00 07/01/16 08:00 07/01/16 08:00 Intake and Output: 07/01/16 07/01/16 06:59 18:59 Intake Total 720 Output Total 1450 Balance -730 - Medications Medications: Current Medications Acetaminophen (Tylenol 325mg Tab) 650 mg PO Q4H PRN PRN Reason: Pain, Mild (1-3) Chlordiazepoxide (Librium) 10 mg PO Q8 PRN; Protocol PRN Reason: Agitation Clotrimazole (Lotrimin 1%) 0 gm TOP BID REPLACED BY [facility] Last Admin: 07/01/16 10:13 Dose: Not Given Enoxaparin Sodium (Lovenox) 40 mg SC DAILY [facility]PLAC[facility] Last Admin: 07/01/16 10:02 Dose: 40 mg Vancomycin HCl (Vancomycin 1gm) 1 gm in 250 mls @ 167 mls/hr IVPB Q12H [facility] PRN Reason: Protocol Stop: 07/15/16 14:46 Multivitamins (Thera Tab) 1 tab PO DAILY [facility]PLAC[facility] Last Admin: 07/01/16 10:02 Dose: 1 tab Ondansetron HCl (Zofran Inj) 4 mg IVP ONCE PRN PRN Reason: Nausea/Vomiting Oxycodone/Acetaminophen (Percocet 5/325 Mg Tab) 1 tab PO Q4H PRN PRN Reason: Pain, moderate (4-7) Stop: 07/02/16 17:43 Last Admin: 06/30/16 07:44 Dose: 1 tab Oxycodone/Acetaminophen (Percocet 5/325 Mg Tab) 2 tab PO Q4H PRN PRN Reason: Pain, severe (8-10) Stop: 07/02/16 17:43 Pantoprazole Sodium (Protonix Ec Tab) 40 mg PO ACB REPLACED BY [facility] Last Admin: 07/01/16 08:21 Dose: 40 mg - Labs Labs: 06/26/16 13:20 06/27/16 07:30 PT 12.3 Seconds (9.9-11.8) H 06/24/16 22:40 INR 1.14 (0.93-1.08) H 06/24/16 22:40 APTT 32.0 Seconds (23.7-30.8) H 06/24/16 22:40 Attending/Attestation - Attestation I have personally seen and examined this patient.: Yes I have fully participated in the care of the patient.: Yes I have reviewed all pertinent clinical information, including history, physical exam and plan: Yes
[2016-07-01] MEDS ORDERED: Vancomycin 1gm in NS 250ml 1 GM/250 ML BAG IVPB SCH (14:45)
--- NOTE | 2016-07-01 16:15 | PN ---
DATE: 07/01/2016 The patient seen earlier today in 565, bed 2. He states he is doing well. No fevers and chills. No nausea. PHYSICAL EXAMINATION: VITAL SIGNS: Temperature is 98, blood pressure is 109/90, respiratory rate 20, heart rate of 57. HEENT: Unremarkable. NECK: Supple. LUNGS: Have decreased breath sounds. HEART: Normal S1, S2. ABDOMEN: Soft, nontender. LABORATORY DATA: Reveals the patient's white count is 10,000, hemoglobin of 14, platelets of 269. C oagulation is noted. Chemistries reveal the BUN of 8, creatinine of 0.8. Microbiology reveals MRSA. Vancomycin LITO of 1 from the right ankle and MRSA from the 26th wound culture, right lower leg. LA C of the vancomycin for MRSA is less than ____ . The patient's vancomycin had dropped off the medicat ion ____ . ____ note is reviewed. Dr. Augustine ____ note is reviewed. Dr. Nelson's note is reviewe d. The pathology report from the , necrotic markedly acute inflamed tissue. Operative note is louise avila. The ____ ulcer of the right lower leg with application of ____ graft. ASSESSMENT AND PLAN: This is a 60-year-old male with sepsis with methicillin-resistant Staphylococcu s aureus ankle and skin and skin structure infection and myositis and exposed tendon without any evid ence of MRI for osteomyelitis. Today is day #6 of vancomycin. Most likely will need prolonged vanco mycin dosing. Will restart the vancomycin. For reasons unknown, he has fallen off the medication __ __. Review of the MR reveals the vancomycin is not present. The patient missed a dose this morning. We will restart the patient on vancomycin and order a vancomycin trough level. Will need prolonged antibiotic treatment. We will discuss with podiatry regarding the duration of antibiotics for myosi tis and exposed tendon, but no osteomyelitis. Follow sed rate, C-reactive protein and vancomycin trou gh levels. Davide Powell MD cc: 350 TT: 07/01/2016 15:25:17 Confirmation # [id number] Dictation # [id number] rn 07/01/2016 15:15:19
[2016-07-02] MEDS: Vancomycin 1gm in NS 250ml 1 GM/250 ML BAG IVPB SCH ×2 (05:21→18:54)
[2016-07-02] MEDS: Pantoprazole 40 mg EC Tab PO SCH (06:50)
[2016-07-02] MEDS: Clotrimazole 1% Cream(30 gm) TOP SCH ×2 (09:26→18:44)
[2016-07-02] MEDS: Multivitamin Therapeutic Tab PO SCH (09:26)
[2016-07-02] MEDS: Enoxaparin 40 mg Syringe SC SCH (09:26)
--- NOTE | 2016-07-02 20:22 | PN ---
DATE: 07/02/2016 The patient is in bed in no acute distress, was seen earlier today in 565, bed 2. PHYSICAL EXAMINATION: VITAL SIGNS: Temperature is 98, blood pressure is 116/70, respiratory rate of 16. HEENT: Unremarkable. NECK: Supple. LUNGS: Have decreased breath sounds. HEART: Normal S1, S2. ABDOMEN: Soft and nontender. LABORATORY DATA: Reveals the patient's white count is down to 10,000 from 12,600. Chemistries are n oted. Microbiology reveals MRSA from ankle and wound culture. Review of the orders reveals the danilo ent to be on vancomycin. ASSESSMENT AND PLAN: This is a 60-year-old male with sepsis with methicillin-resistant Staphylococcu s aureus skin and skin structure infection and myositis and exposed tendon, although no MRI evidence of osteomyelitis, day #7 of vancomycin. Will need prolonged treatment of vancomycin and recommend CB C, SMA-18, sed rate, C-reactive protein and vancomycin trough level once weekly. Review of the medic ations reveal the patient to be on vancomycin at 6:00 a.m. and 6:00 p.m. We will order a vancomycin l evel for tomorrow at 5:00 a.m. We will make further recommendations an hour before the 6:00 a.m. dose. Davide Powell MD cc: 350 TT: 07/02/2016 20:21:31 Confirmation # [id number] Dictation # [id number] elier
[2016-07-03] MEDS: Vancomycin 1gm in NS 250ml 1 GM/250 ML BAG IVPB SCH ×2 (06:35→17:01)
[2016-07-03] MEDS: Pantoprazole 40 mg EC Tab PO SCH (08:37)
[2016-07-03] MEDS: Enoxaparin 40 mg Syringe SC SCH (10:57)
[2016-07-03] MEDS: Multivitamin Therapeutic Tab PO SCH (10:57)
[2016-07-03] MEDS: Clotrimazole 1% Cream(30 gm) TOP SCH ×2 (11:00→17:06)
--- NOTE | 2016-07-03 17:34 | PN ---
DATE: 07/03/2016 The patient was seen earlier this morning in room 565, bed 2. PHYSICAL EXAMINATION: VITAL SIGNS: Temperature is 98, blood pressure is 101/70, respiratory rate of 18. HEENT: Unremarkable. NECK: Supple. LUNGS: Have decreased breath sounds. HEART: Normal S1, S2. ABDOMEN: Soft and nontender. LABORATORY DATA: Reveals the patient's white count is down to 10,000 and the chemistries are noted. Microbiology reveals the blood cultures are negative and the wound culture has MRSA. Review of the orders reveals the patient to be on vancomycin and the patient's vancomycin level from this morning is 13.6. ASSESSMENT AND PLAN: This is a 60-year-old male with sepsis with methicillin-resistant Staphylococcu s aureus skin and skin structure infection and myositis and exposed tendon although on MRI no evidenc e of osteomyelitis. Today is day #8 of vancomycin with a vancomycin trough level of 13.6. Would con tinue the vancomycin and recommend a CBC, SMA-18, SED rate, C-reactive protein and vancomycin trough once weekly. 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 Will follow closely with you. The case was discussed with Dr. Almazan earlier. The patient does have exposed tendon as described by podiatry. Davide Powell MD cc: 350 TT: 07/03/2016 17:32:50 Confirmation # [id number] Dictation # [id number] monique
--- NOTE | 2016-07-04 00:36 | PN ---
DATE: 07/02/2016 The patient is status post surgery, resting. . He seems to be doing well. Cellulitis and IV a ntibiotic. PHYSICAL EXAMINATION: VITAL SIGNS: Temperature 98.3, heart rate 55, blood pressure 116/74, respirations 18, saturation 98% on room air. HEAD AND NECK: Normal. No JVD. No thyromegaly. CHEST: Clear, good air entry. CARDIAC: First sound, second sound normal. ABDOMEN: Soft, nontender. EXTREMITIES: No edema. NEUROLOGIC: Normal. LABORATORY: None. IMPRESSION: 1. Right leg cellulitis, status post surgery. Continue daily wound covering. Continue daily wound care and vancomycin. Continue IV antibiotic as prescribed. The patient currently on vancomycin. He does have a history of methicillin-resistant Staphylococcus aureus in the past. 2. History of alcohol abuse, stable. No tremors. The patient currently on Librium as needed. Seem s to be doing well. Continue vitamins. PLAN: Continue current treatment. Continue GI and DVT prophylaxis. We will follow up clinically. The patient will need to go to transitional care unit for continuation of IV antibiotic and ambulatio n and physical therapy. Garth Nelson MD cc: 223 TT: 07/04/2016 00:35:50 Confirmation # [id number] Dictation # [id number] tn
--- NOTE | 2016-07-04 00:39 | PN ---
DATE: 07/03/2016 SUBJECTIVE: The patient clinically stable. No new complaints. Afebrile, no nausea, no vomiting. I n right leg cast, status post surgery for graft, seems to be doing well. PHYSICAL EXAMINATION: HEAD AND NECK: Normal. No JVD, no thyromegaly. CHEST: Clear, good entry. CARDIAC: First and second sounds are normal. ABDOMEN: Soft and nontender. EXTREMITIES: Right leg cast. Left leg is covered with gauze. IMPRESSION AND PLAN: 1. Status post grafting, status post graft of right leg ulcerations for second stage and followed by lynda and Dr. Escamilla will take a look at the wound tomorrow. 2. Cellulitis, currently Continue IV vancomycin. 3. Difficult ambulation due to both legs. Right leg has cast and left leg has gauze and coverage to o. 4. The patient will need more physical therapy in TCU for IV antibiotic and rehab medications. 5. The patient has a history of alcohol abuse. Seems stable. Continue Nubain p.r.n., multivitamin. 6. Continue gastrointestinal and deep venous thrombosis prophylaxis. Garth Nelson MD cc: 223 TT: 07/04/2016 00:38:32 Confirmation # [id number] Dictation # [id number] mallory
[2016-07-04] MEDS: Vancomycin 1gm in NS 250ml 1 GM/250 ML BAG IVPB SCH ×2 (05:52→17:49)
[2016-07-04] MEDS: Pantoprazole 40 mg EC Tab PO SCH (08:24)
[2016-07-04] MEDS: Enoxaparin 40 mg Syringe SC SCH (09:58)
[2016-07-04] MEDS: Multivitamin Therapeutic Tab PO SCH (09:58)
[2016-07-04] MEDS: Clotrimazole 1% Cream(30 gm) TOP SCH ×2 (09:59→17:20)
--- NOTE | 2016-07-04 13:32 | CP.PCM.PN ---
<Belen Holman - Last Filed: 07/04/16 13:29> Subjective - Date & Time of Evaluation Date of Evaluation: 07/04/16 Time of Evaluation: 13:29 - Subjective Subjective: 60 year old male seen at bedside with attending Dr. Escamilla 5 days s/p right leg wound debridement with integra graft application. Patient's dressing remains c/d/i, the splint remains intact to right foot and dressing remains intact to left foot and leg. Patient denies any acute events overnight. He denies any pain to his lower extremities. Patient denies n/f/v/c/d/sob. Objective - Vital Signs/Intake and Output Vital Signs (last 24 hours): Temp Pulse Resp BP Pulse Ox 98.2 F 65 20 108/75 97 07/04/16 07:30 07/04/16 07:30 07/04/16 07:30 07/04/16 07:30 07/04/16 07:30 Intake and Output: 07/04/16 07/04/16 06:59 18:59 Intake Total 720 Output Total 1500 Balance -780 - Medications Medications: Current Medications Acetaminophen (Tylenol 325mg Tab) 650 mg PO Q4H PRN PRN Reason: Pain, Mild (1-3) Chlordiazepoxide (Librium) 10 mg PO Q8 PRN; Protocol PRN Reason: Agitation Clotrimazole (Lotrimin 1%) 0 gm TOP BID [facility] Last Admin: 07/04/16 09:59 Dose: Not Given Vancomycin HCl (Vancomycin 1gm) 1 gm in 250 mls @ 167 mls/hr IVPB Q12H [facility] PRN Reason: Protocol Stop: 07/16/16 06:01 Last Admin: 07/04/16 05:52 Dose: 167 mls/hr Multivitamins (Thera Tab) 1 tab PO DAILY [facility] Last Admin: 07/04/16 09:58 Dose: 1 tab Ondansetron HCl (Zofran Inj) 4 mg IVP ONCE PRN PRN Reason: Nausea/Vomiting Pantoprazole Sodium (Protonix Ec Tab) 40 mg PO ACB [facility] Last Admin: 07/04/16 08:24 Dose: 40 mg - Labs Labs: 06/26/16 13:20 06/27/16 07:30 PT 12.3 Seconds (9.9-11.8) H 06/24/16 22:40 INR 1.14 (0.93-1.08) H 06/24/16 22:40 APTT 32.0 Seconds (23.7-30.8) H 06/24/16 22:40 - Constitutional Appears: Well, Non-toxic, No Acute Distress - Extremities Exam Additional comments: Cast clean, dry, intact to RLE Dressing clean, dry, intact to LLE - Neurological Exam Neurological Exam: Alert, Awake, Oriented x3 - Psychiatric Exam Psychiatric exam: Normal Affect, Normal Mood Assessment and Plan - Assessment and Plan (Free Text) Assessment: 60 y/o male seen at bedside 5 days s/p right leg wound debridement and graft application Plan: patient evaluated and chart reviewed seen at bedside with attending Dr. Escamilla labs and vitals reviewed; afebrile dressings to remain clean,dry,intact cast shoe for right foot to be worn for ambulation continue IV abx as per ID podiatry will continue to monitor while patient remains in house <Nancie Escamilla - Last Filed: 07/10/16 13:56> Objective - Vital Signs/Intake and Output Vital Signs (last 24 hours): Temp Pulse Resp BP Pulse Ox 98.9 F 54 L 18 115/80 99 07/05/16 07:30 07/05/16 08:34 07/05/16 07:30 07/05/16 07:30 07/05/16 07:30 - Labs Labs: 06/26/16 13:20 06/27/16 07:30 PT 12.3 Seconds (9.9-11.8) H 06/24/16 22:40 INR 1.14 (0.93-1.08) H 06/24/16 22:40 APTT 32.0 Seconds (23.7-30.8) H 06/24/16 22:40 Attending/Attestation - Attestation I have personally seen and examined this patient.: Yes I have fully participated in the care of the patient.: Yes I have reviewed all pertinent clinical information, including history, physical exam and plan: Yes
--- NOTE | 2016-07-04 19:40 | PN ---
DATE: 07/04/2016 The patient is in bed, in no acute distress. Was seen earlier today in 565. PHYSICAL EXAMINATION: VITAL SIGNS: Temperature is 98, blood pressure is 120/70, respiratory rate of 16. HEENT: Unremarkable. NECK: Supple. LUNGS: Have decreased breath sounds. HEART: Normal S1, S2. ABDOMEN: Soft, nontender. LABORATORY DATA: Reveals a white count of 10,000, hemoglobin of 14, platelets of 269. BUN of 8, cre atinine of 0.8. Vancomycin trough of 13.6. ASSESSMENT AND PLAN: This is a 60-year-old male with sepsis with methicillin-resistant Staphylococcu s aureus skin and skin structure infection and myositis and exposed tendon, although the MRI showed n o evidence of osteomyelitis. Today is day #9 of vancomycin with a trough level 13.6. Will continue the vancomycin. Make the recommendations of duration of therapy, will discuss with director franchise sales, with a CBC, SMA-18, sed rate, C-reactive protein and vancomycin trough level once weekly. Will follow eric gill with you. The patient for possible transfer to transitional care to complete his antibiotic the rapy. Davide Powell MD cc: [phone] TT: 07/04/2016 19:40:20 Confirmation # [id number] Dictation # [id number] mallory
[2016-07-04 21:38] VITALS: RESP 18
[2016-07-05] MEDS: Pantoprazole 40 mg EC Tab PO SCH (06:33)
[2016-07-05] MEDS: Vancomycin 1gm in NS 250ml 1 GM/250 ML BAG IVPB SCH (06:33)
--- NOTE | 2016-07-05 07:50 | PN ---
DATE: 07/04/2016 The patient seems stable, comfortable. He does have difficulty ambulating because of his right foot new surgery cast and heavy of the cast and he is already baseline gait problem. The patient getting physical therapy, still on IV antibiotic for MRSA cellulitis for his right leg cellulitis and history of MRSA. He has no chest pain, no short of breath, no nausea, no vomiting. PHYSICAL EXAMINATION: VITAL SIGNS: Temperature 98.2, heart rate 65, blood pressure 118/76, respirations 18, saturation 97% on room air. HEAD AND NECK: Normal. No JVD, no thyromegaly. CHEST: Clear, good entry. CARDIAC: First sound, second sound normal. ABDOMEN: Soft, nontender. EXTREMITIES: There is no edema because of the cast and the left leg is wrapped with gauze and dressi ng up to above his ankle. NEUROLOGIC: Normal. IMPRESSION AND PLAN: 1. Right foot cellulitis, currently on IV vancomycin, status post graft and wound cleaning by Dr. Stevo morrell. Currently, the patient on cast and continue physical therapy. Continue IV antibiotic and fol low up with Dr. Escamilla. 2. History of alcohol abuse, stable. No withdrawals. 3. Hypertension, transient. We will just monitor his blood pressure, seems stable at this time. Th ere are not really any other complaints. Continue gastrointestinal and deep venous thrombosis prophy laxis. Continue physical therapy. We will discuss with the case checker about TCU for 5-6 days more before discharging home. The patient does not want to go to [facility] for rehabilitation. It is too much hassle for him. Continue current therapy. Garth Nelson MD cc: [phone] TT: 07/05/2016 07:50:11 Confirmation # [id number] Dictation # [id number] tn
[2016-07-05 08:27] VITALS: BP 115/80; TEMP 98.9; O2SAT 99
[2016-07-05 08:35] VITALS: PULSE 54
[2016-07-05] MEDS: Multivitamin Therapeutic Tab PO SCH (09:23)
[2016-07-05] MEDS: Clotrimazole 1% Cream(30 gm) TOP SCH (09:23)
--- NOTE | 2016-07-05 11:17 | CP.PCM.PN ---
<Belen Holman - Last Filed: 07/05/16 11:15> Subjective - Date & Time of Evaluation Date of Evaluation: 07/05/16 Time of Evaluation: 11:15 - Subjective Subjective: 60 year old male seen at bedside 6 days s/p right leg wound debridement with integra graft application. Patient's dressing remains c/d/i, the splint remains intact to right foot and dressing remains intact to left foot and leg. Patient denies any acute events overnight. He denies any pain to his lower extremities. He admits it is hard to walk with the cast. Patient denies n/f/v/c/d/sob. Objective - Vital Signs/Intake and Output Vital Signs (last 24 hours): Temp Pulse Resp BP Pulse Ox 98.9 F 54 L 18 115/80 99 07/05/16 07:30 07/05/16 08:34 07/05/16 07:30 07/05/16 07:30 07/05/16 07:30 Intake and Output: 07/05/16 07/05/16 06:59 18:59 Intake Total 800 Output Total 1400 Balance -600 - Medications Medications: Current Medications Acetaminophen (Tylenol 325mg Tab) 650 mg PO Q4H PRN PRN Reason: Pain, Mild (1-3) Chlordiazepoxide (Librium) 10 mg PO Q8 PRN; Protocol PRN Reason: Agitation Clotrimazole (Lotrimin 1%) 0 gm TOP BID [facility] Last Admin: 07/05/16 09:23 Dose: Not Given Vancomycin HCl (Vancomycin 1gm) 1 gm in 250 mls @ 167 mls/hr IVPB Q12H [facility] PRN Reason: Protocol Stop: 07/16/16 06:01 Last Admin: 07/05/16 06:33 Dose: 167 mls/hr Multivitamins (Thera Tab) 1 tab PO DAILY [facility] Last Admin: 07/05/16 09:23 Dose: 1 tab Ondansetron HCl (Zofran Inj) 4 mg IVP ONCE PRN PRN Reason: Nausea/Vomiting Pantoprazole Sodium (Protonix Ec Tab) 40 mg PO ACB [facility] Last Admin: 07/05/16 06:33 Dose: 40 mg - Labs Labs: 06/26/16 13:20 06/27/16 07:30 PT 12.3 Seconds (9.9-11.8) H 06/24/16 22:40 INR 1.14 (0.93-1.08) H 06/24/16 22:40 APTT 32.0 Seconds (23.7-30.8) H 06/24/16 22:40 - Constitutional Appears: Well, Non-toxic, No Acute Distress - Extremities Exam Additional comments: Cast clean, dry, intact to RLE Dressing clean, dry, intact to LLE - Neurological Exam Neurological Exam: Alert, Awake, Oriented x3 - Psychiatric Exam Psychiatric exam: Normal Affect, Normal Mood Assessment and Plan - Assessment and Plan (Free Text) Assessment: 60 y/o male seen at bedside 6 days s/p right leg wound debridement and graft application Plan: patient evaluated and chart reviewed discussed with attending Dr. Almazan labs and vitals reviewed; afebrile dressings to remain clean,dry,intact cast shoe for right foot to be worn for ambulation continue IV abx as per ID podiatry will continue to monitor while patient remains in house <Chuckie Almazan - Last Filed: 07/05/16 12:12> Objective - Vital Signs/Intake and Output Vital Signs (last 24 hours): Temp Pulse Resp BP Pulse Ox 98.9 F 54 L 18 115/80 99 07/05/16 07:30 07/05/16 08:34 07/05/16 07:30 07/05/16 07:30 07/05/16 07:30 Intake and Output: 07/05/16 07/05/16 06:59 18:59 Intake Total 800 Output Total 1400 Balance -600 - Medications Medications: Current Medications Acetaminophen (Tylenol 325mg Tab) 650 mg PO Q4H PRN PRN Reason: Pain, Mild (1-3) Chlordiazepoxide (Librium) 10 mg PO Q8 PRN; Protocol PRN Reason: Agitation Clotrimazole (Lotrimin 1%) 0 gm TOP BID [facility] Last Admin: 07/05/16 09:23 Dose: Not Given Vancomycin HCl (Vancomycin 1gm) 1 gm in 250 mls @ 167 mls/hr IVPB Q12H [facility] PRN Reason: Protocol Stop: 07/16/16 06:01 Last Admin: 07/05/16 06:33 Dose: 167 mls/hr Multivitamins (Thera Tab) 1 tab PO DAILY [facility] Last Admin: 07/05/16 09:23 Dose: 1 tab Olopatadine HCl (Patanol 0.1% Opht Soln) 0 ml OU DAILY [facility] Ondansetron HCl (Zofran Inj) 4 mg IVP ONCE PRN PRN Reason: Nausea/Vomiting Pantoprazole Sodium (Protonix Ec Tab) 40 mg PO ACB [facility] Last Admin: 07/05/16 06:33 Dose: 40 mg - Labs Labs: 06/26/16 13:20 06/27/16 07:30 PT 12.3 Seconds (9.9-11.8) H 06/24/16 22:40 INR 1.14 (0.93-1.08) H 06/24/16 22:40 APTT 32.0 Seconds (23.7-30.8) H 06/24/16 22:40 Attending/Attestation - Attestation I have personally seen and examined this patient.: Yes I have fully participated in the care of the patient.: Yes I have reviewed all pertinent clinical information, including history, physical exam and plan: Yes
[2016-07-05] MEDS ORDERED: Olopatadine 0.1% Opht Sol OU SCH (12:15)
--- NOTE | 2016-07-05 19:51 | CP.PCM.PN ---
Subjective - Date & Time of Evaluation Date of Evaluation: 07/05/16 Time of Evaluation: 10:05 - Subjective Subjective: Comfortable in bed, not in distress, less pain in the right leg. No fevers overnight. Objective - Vital Signs/Intake and Output Vital Signs (last 24 hours): Temp Pulse Resp BP Pulse Ox 98.9 F 54 L 18 115/80 99 07/05/16 07:30 07/05/16 08:34 07/05/16 07:30 07/05/16 07:30 07/05/16 07:30 Intake and Output: 07/05/16 07/06/16 18:59 06:59 Intake Total 760 Output Total 1400 Balance -640 - Labs Labs: 06/26/16 13:20 06/27/16 07:30 PT 12.3 Seconds (9.9-11.8) H 06/24/16 22:40 INR 1.14 (0.93-1.08) H 06/24/16 22:40 APTT 32.0 Seconds (23.7-30.8) H 06/24/16 22:40 - Constitutional Appears: Non-toxic, No Acute Distress - Head Exam Head Exam: NORMAL INSPECTION - ENT Exam ENT Exam: Mucous Membranes Moist - Neck Exam Neck Exam: absent: Lymphadenopathy, Meningismus - Respiratory Exam Respiratory Exam: Decreased Breath Sounds - Cardiovascular Exam Cardiovascular Exam: +S1, +S2 - GI/Abdominal Exam GI & Abdominal Exam: Soft. absent: Tenderness - Extremities Exam Additional comments: right leg with cast in place Assessment and Plan - Assessment and Plan (Free Text) Plan: Assessment Sepsis probably secondary to infected right ankle ulcers with skin and skin structure infection and myositis with exposed tendon without evidence of osteomyelitis on MRI, in a patient with venous stasis and chronic lymphedema, growing MRSA S/P skin grafting HTN peripheral vascular disease chronic lymphedema with venous stasis ulcers left hip fracture S/P total hip replacement Plan continue Vancomycin (day 10) - should complete at least 2 weeks of antibiotics but should aim for longer
--- NOTE | 2016-07-06 13:02 | DS ---
A 60-year-old male who came in with right foot cellulitis with full thickness tear of the skin of the right foot, the lateral and medial part. The patient was seen by podiatry consult, Dr. Escamilla. Sh jyoti did grafting and she did casting and the patient was given IV vancomycin. He does have a history o f MRSA. The patient had blood cultures on the admission and seen by ID consultation, Dr. Powell, for cellulitis and a history of MRSA. He has blood cultures x 2 which were negative. However, his wound culture shows MRSA. The patient was given vancomycin and advised to continue on vancomycin whe n transferred to transitional care unit. He did well. He did have a history of alcohol drinking, but no withdrawal. Blood pressure is stable. No pulmonary complication. He was on gastrointestinal an d deep venous thrombosis prophylaxis. No clots, seems to be doing well. Had a venous Doppler, which was negative. Did not show any clots. He seems stable. The patient will be discharged to [facility] care unit. He had x-ray and MRI of his lower extremities also which shows prominent soft tissue ulceration seen within the medial soft tissue at the level of medial malleolus. Also, there is gerri a with circumferential soft tissue suggestive of underlying cellulitis. Also, there are some signal abnormalities in the muscular level of the ankle and calf musculature concerning for myositis. There is no gross signal abnormalities to suggest acute osteomyelitis. He also had degenerative changes n oted in the level of mid foot and osteophytosis. DISCHARGE DIAGNOSES: 1. Right foot cellulitis. 2. Right foot skin necrosis with grafting, status post surgery. 3. Hip osteoarthritis, foot osteoarthritis. 4. Gait disorder due to casts on the right foot with also left foot chronic venous insufficiency on both legs and chronic leg edema with current left foot is wrapped in gauze and covered with socks. PLAN: To discharge the patient for IV therapy, IV vancomycin, to transitional care unit and will fol low up clinically. PHYSICAL EXAMINATION: On the date of discharge which is 07/05/2016: VITAL SIGNS: Temperature 98.9, heart rate in the 60s, blood pressure 115/80, respirations 18, satura tion 99% on room air. HEAD AND NECK: Normal. No JVD, no thyromegaly. CHEST: Clear, good entry. CARDIAC: First and second sounds are normal. ABDOMEN: Soft, obese, nontender. EXTREMITIES: As I mentioned, right foot cast up to his toes and left foot also is covered with gauze and socks. DISCHARGE DIAGNOSES: As I mentioned above. PLAN: Transfer to TCU for continuation of therapy. Continue IV vancomycin and all other current med ications. Garth Nelson MD cc: [phone] TT: 07/06/2016 13:01:58 rn
== END 2016-07-05 16:54 | DRG 574 ==
LOC: ED 21:18 → ERH 22:09 → 5RNO 06-25 01:08
PROVIDERS: ADMIT Internal Medicine; ATTEND Internal Medicine
PROC: 0JBN0ZZ Excision of Right Lower Leg Subcutaneous Tissue and Fascia, Open Approach (ICD-10-PCS; 2016-06-29)
PROC: 0HRKXK3 Replacement of Right Lower Leg Skin with Nonautologous Tissue Substitute, Full Thickness, External Approach (ICD-10-PCS; principal; 2016-06-29 16:30)
DX: L03.115 Cellulitis of right lower limb (principal); L97.819 Non-pressure chronic ulcer of other part of right lower leg with unspecified severity; L97.319 Non-pressure chronic ulcer of right ankle with unspecified severity; B95.62 Methicillin resistant Staphylococcus aureus infection as the cause of diseases classified elsewhere; I10 Essential (primary) hypertension; L97.519 Non-pressure chronic ulcer of other part of right foot with unspecified severity; I73.9 Peripheral vascular disease, unspecified; I87.2 Venous insufficiency (chronic) (peripheral); I89.0 Lymphedema, not elsewhere classified; F10.10 Alcohol abuse, uncomplicated; M60.9 Myositis, unspecified; M16.0 Bilateral primary osteoarthritis of hip; Z91.19 Patient's noncompliance with other medical treatment and regimen; Z86.14 Personal history of Methicillin resistant Staphylococcus aureus infection; Z96.642 Presence of left artificial hip joint; Z87.891 Personal history of nicotine dependence

== ENCOUNTER 2016-07-05 16:54 | Inpatient (IN) | payer MEDICARE, OTHER ==
[2016-07-05] MEDS: Vancomycin 1gm in NS 250ml 1 GM/250 ML BAG IVPB SCH (17:58)
[2016-07-05 21:40] VITALS: BMI 24.7
[2016-07-05] MEDS ORDERED: Pneumococcal 23-Valent Vaccine IM ONE (21:42)
[2016-07-06] MEDS: Pantoprazole 40 mg EC Tab PO SCH (06:19)
[2016-07-06] MEDS: Vancomycin 1gm in NS 250ml 1 GM/250 ML BAG IVPB SCH ×2 (06:19→18:30)
[2016-07-06 07:16] LABS: ADD MANUAL DIFF? NO
[2016-07-06 08:10] LABS: ALB/GLOB RATIO 0.8 (1.1-1.8); ALKALINE PHOSPHATASE 67 U/L (38-133); ALT/SGPT 37 U/L (7-56); AST/SGOT 48 U/L (15-59); BILIRUBIN,TOTAL 0.7 mg/dL (0.2-1.3); BLOOD UREA NITROGEN 12 mg/dL (7-21); CALCIUM 9.5 mg/dL (8.4-10.5); CARBON DIOXIDE 25 mmol/L (21-33); CHLORIDE 103 mmol/L (98-107); GFR AFRICAN-AMERICAN > 60; GLUCOSE,RANDOM 112 mg/dL (70-110); POTASSIUM 3.8 mmol/L (3.6-5.0); SODIUM 140 mmol/L (132-148); TOTAL PROTEIN 8.4 g/dL (5.8-8.3)
[2016-07-06 08:19] LABS: BASO # 0.11 K/mm3 (0.0-2.0); EOS # 0.6 (0.0-0.7); EOS % 5.2 % (1.5-5.0); GRAN # 6.87 (1.4-6.5); GRAN % 62.9 % (50.0-68.0); HEMATOCRIT 39.5 % (42.0-52.0); LYMPH # 2.3 (1.2-3.4); LYMPH % 21.2 % (22.0-35.0); MEAN CELL VOLUME 92.5 fL (80.0-105.0); MEAN CORPUSCULAR HEMOGLOBIN 33.5 pg (25.0-35.0); MEAN CORPUSCULAR HGB CONC 36.2 g/dl (31.0-37.0); MEAN PLATELET VOLUME 10.3 fl (7.0-11.0); MONO # 1.1 (0.1-0.6); MONO % 9.7 % (1.0-6.0); PLATELET COUNT 345 10^3/uL (120.0-450.0); RED CELL DISTRIBUTION WIDTH 12.2 % (11.5-14.5); WHITE BLOOD COUNT 10.9 10^3/ul (4.5-11.0)
[2016-07-06] MEDS: Multivitamin Therapeutic Tab PO SCH (10:32)
[2016-07-06] MEDS: Olopatadine 0.1% Opht Sol OU SCH (10:32)
[2016-07-06] MEDS ORDERED: Enoxaparin 40 mg Syringe SC SCH (12:45)
--- NOTE | 2016-07-06 13:28 | HP ---
A 60-year-old male came into the transitional care unit for IV vancomycin and wound care and gait tra ining after cast placement on his right leg. HISTORY OF PRESENT ILLNESS: This is a 60-year-old man with history of chronic venous insufficiency w ith chronic leg ulcers, came in with right leg cellulitis ulcerations, status post graft and surgical treatment of his right foot and by putting a heavy cast on the right leg below the knee. The patien t currently on IV vancomycin for MRSA wound cultures and cellulitis. He does have difficulty walking with the cast foot. Has also dressing and a lot of gauze around it with chronic wound and chr onic venous insufficiency, edema both legs and ulcerations, being treated. The patient currently on IV vancomycin and he will be getting physical therapy in TCU. PAST MEDICAL HISTORY: Chronic venous insufficiency, chronic gait disorder, chronic osteoarthritis of the hips, history of alcohol abuse, chronic venous ulcerations on both legs with chronic wound care for years. ALLERGIES: No known allergies. SOCIAL HISTORY: He lives by himself. He never smoked, but he drinks. REVIEW OF SYSTEMS: He has gait problem, chronic back pain, hip pain, otherwise stable. No chest juan n, no short of breath. CURRENT MEDICATIONS: He is getting Librium 10 mg p.o. q. 8 hours p.r.n., Lotrimin cream b.i.d. to th e leg and lower extremity skin area, Patanol eyedrops for allergic conjunctivitis, Protonix 40 p.o. d aily, multivitamins, Tylenol p.r.n., vancomycin 1 gram IV b.i.d. and Zofran p.r.n. for nausea. PHYSICAL EXAMINATION: GENERAL: The patient currently in TCU, stable. No chest pain, no short of breath. VITAL SIGNS: Temperature is 98.7, heart rate 69, blood pressure 116/79, respirations , saturati on 95%. HEAD AND NECK: Normal. No JVD, no thyromegaly. CHEST: Clear. ABDOMEN: Soft, nontender. EXTREMITIES: No edema. Lower extremity exam, right leg has cast and left leg has multiple gauze lay ers with socks on it from chronic wound ulcer. NEUROLOGIC: Normal. IMPRESSION AND PLAN: 1. Right leg cellulitis, status post surgery, graft and cast placement. Continue IV vancomycin. Co ntinue physical therapy, gait training. 2. Chronic venous insufficiency affecting both legs with chronic venous ulcer on the left leg also. 3. History of alcohol abuse, stable. No withdrawal. 4. Allergic conjunctivitis. Continue Patanol. PLAN: Continue current therapy. Continue Protonix. GI and DVT prophylaxis. Continue multivitamins , Lovenox 40 mg subQ daily. Will follow up clinically. Garth Nelson MD cc: [phone] TT: 07/06/2016 13:27:37 rn
--- NOTE | 2016-07-06 16:05 | CP.PCM.PN ---
<Belen Holman - Last Filed: 07/06/16 16:54> Subjective - Date & Time of Evaluation Date of Evaluation: 07/06/16 Time of Evaluation: 15:00 - Subjective Subjective: 60 year old male seen at bedside 7 days s/p right leg wound debridement with integra graft application. Patient's dressing remains c/d/i, the cast remains intact to right foot and dressing remains intact to left foot and leg. Patient denies any acute events overnight. He denies any pain to his lower extremities. He admits it is hard to walk with the cast. Patient denies n/f/v/c/d/sob. Objective - Vital Signs/Intake and Output Vital Signs (last 24 hours): Temp Pulse Resp BP Pulse Ox 98.7 F 69 18 113/79 95 07/06/16 10:00 07/06/16 10:00 07/06/16 10:00 07/06/16 10:00 07/06/16 10:00 Intake and Output: 07/06/16 07/06/16 06:59 18:59 Intake Total 300 Balance 300 - Medications Medications: Current Medications Acetaminophen (Tylenol 325mg Tab) 650 mg PO Q4H PRN; Protocol PRN Reason: Pain, Mild (1-3) Chlordiazepoxide (Librium) 10 mg PO Q8 PRN; Protocol PRN Reason: Agitation Clotrimazole (Lotrimin 1%) 30 gm TOP BID [facility] PRN Reason: Protocol Enoxaparin Sodium (Lovenox) 40 mg SC DAILY [facility] PRN Reason: Protocol Vancomycin HCl (Vancomycin 1gm) 1 gm in 250 mls @ 167 mls/hr IVPB 0600,1800 [facility] PRN Reason: Protocol Last Admin: 07/06/16 06:19 Dose: 167 mls/hr Multivitamins (Thera Tab) 1 tab PO DAILY [facility] PRN Reason: Protocol Last Admin: 07/06/16 10:32 Dose: 1 tab Olopatadine HCl (Patanol 0.1% Opht Soln) 5 ml OU DAILY [facility] PRN Reason: Protocol Last Admin: 07/06/16 10:32 Dose: 1 drop Ondansetron HCl (Zofran Inj) 4 mg IVP ONCE PRN; Protocol PRN Reason: Nausea/Vomiting Pantoprazole Sodium (Protonix Ec Tab) 40 mg PO 0630 [facility] PRN Reason: Protocol Last Admin: 07/06/16 06:19 Dose: 40 mg - Labs Labs: 07/06/16 06:30 07/06/16 07:30 - Constitutional Appears: Well, Non-toxic, No Acute Distress - Extremities Exam Additional comments: Cast clean, dry, intact to RLE Dressing clean, dry, intact to LLE - Neurological Exam Neurological Exam: Alert, Awake, Oriented x3 - Psychiatric Exam Psychiatric exam: Normal Affect, Normal Mood Assessment and Plan - Assessment and Plan (Free Text) Assessment: 60 year old male seen at bedside 7 days s/p right leg wound debridement and graft application Plan: patient evaluated and chart reviewed discussed with attending Dr. Escamilla labs and vitals reviewed; afebrile dressings to remain clean, dry, intact cast shoe for right foot to be worn for ambulation continue physical therapy continue IV abx as per ID podiatry will continue to monitor while patient remains in house <Nancie Escamilla - Last Filed: 07/10/16 13:57> Objective - Vital Signs/Intake and Output Vital Signs (last 24 hours): Temp Pulse Resp BP Pulse Ox 98.2 F 50 L 14 105/72 98 07/09/16 14:00 07/09/16 14:00 07/09/16 14:00 07/09/16 14:00 07/09/16 14:00 - Medications Medications: Current Medications Acetaminophen (Tylenol 325mg Tab) 650 mg PO Q4H PRN; Protocol PRN Reason: Pain, Mild (1-3) Chlordiazepoxide (Librium) 10 mg PO Q8 PRN; Protocol PRN Reason: Agitation Enoxaparin Sodium (Lovenox) 40 mg SC 0600 [facility] PRN Reason: Protocol Last Admin: 07/10/16 05:16 Dose: 40 mg Vancomycin HCl (Vancomycin 1gm) 1 gm in 250 mls @ 167 mls/hr IVPB 0600,1800 [facility] PRN Reason: Protocol Last Admin: 07/10/16 05:15 Dose: 167 mls/hr Lactic Acid (Lac-Hydrin 12% Cream (140 G)) 0 ea TOP DAILY [facility] Last Admin: 07/10/16 09:17 Dose: 1 applic Multivitamins (Thera Tab) 1 tab PO DAILY [facility] PRN Reason: Protocol Last Admin: 07/10/16 09:17 Dose: 1 tab Olopatadine HCl (Patanol 0.1% Opht Soln) 5 ml OU DAILY [facility] PRN Reason: Protocol Last Admin: 07/10/16 10:55 Dose: 1 drop Ondansetron HCl (Zofran Inj) 4 mg IVP ONCE PRN; Protocol PRN Reason: Nausea/Vomiting Pantoprazole Sodium (Protonix Ec Tab) 40 mg PO 0630 [facility] PRN Reason: Protocol Last Admin: 07/10/16 06:33 Dose: 40 mg - Labs Labs: 07/06/16 06:30 07/06/16 07:30 Attending/Attestation - Attestation I have personally seen and examined this patient.: Yes I have fully participated in the care of the patient.: Yes I have reviewed all pertinent clinical information, including history, physical exam and plan: Yes
--- NOTE | 2016-07-06 17:23 | CP.PCM.CON ---
History of Present Illness - History of Present Illness History of Present Illness: 60 year old male with PMH of HTN, peripheral vascular disease, chronic lymphedema with venous stasis ulcers, left hip fracture S/P total hip replacement was initially admitted in [facility] ([facility]3] because of cellulitis, myositis and exposed tendon on the right ankle and foot related to venous stasis ulcers. He underwent skin grafting and did well. He is now placed on a leg cast. The wound cx grew MRSA and is being treated with Vancomycin. He is now transferred to [facility] [place] for continued medical therapy and physical rehabilitation. Infectious diseases consult is requested to continue his antibiotic therapy. Currently the patient denies fever or chills, no nausea or vomiting, no chest pain, no SOB, no abdominal pain, no diarrhea, no dysuria, no headache or dizziness, no cough or colds, no sore throat, no blurring of vision. His right leg feels ok in a cast and does not feel pain currently. Review of Systems - Review of Systems All systems: reviewed and no additional remarkable complaints except (as per HPI ) Past Patient History - Infectious Disease Hx of Infectious Diseases: None - Past Social History Smoking Status: Never Smoked - CARDIAC Hx Cardiac Disorders: Yes Hx Hypertension: Yes - PULMONARY Hx Respiratory Disorders: No - NEUROLOGICAL Hx Neurological Disorder: No Other/Comment: wears eye glasses - HEENT Hx HEENT Problems: Yes Hx Blind: Yes (wears glasses) - RENAL Hx Chronic Kidney Disease: No - ENDOCRINE/METABOLIC Hx Endocrine Disorders: No - HEMATOLOGICAL/ONCOLOGICAL Hx Blood Transfusions: No - INTEGUMENTARY Hx Dermatological Problems: No Other/Comment: skin breakdown due to venous stasis in BLE - MUSCULOSKELETAL/RHEUMATOLOGICAL Hx Falls: No - GASTROINTESTINAL Hx Gastrointestinal Disorders: No - GENITOURINARY/GYNECOLOGICAL Hx Genitourinary Disorders: No Hx Reproductive Disorders: No - PSYCHIATRIC Hx Psychophysiologic Disorder: No - SURGICAL HISTORY Hx Surgeries: Yes - ANESTHESIA Hx Anesthesia Reactions: No Hx Malignant Hyperthermia: No Meds Allergies/Adverse Reactions: Allergies Allergy/AdvReac Type Severity Reaction Status Date / Time No Known Allergies Allergy Verified 07/18/11 13:39 - Medications Medications: Current Medications Acetaminophen (Tylenol 325mg Tab) 650 mg PO Q4H PRN; Protocol PRN Reason: Pain, Mild (1-3) Chlordiazepoxide (Librium) 10 mg PO Q8 PRN; Protocol PRN Reason: Agitation Clotrimazole (Lotrimin 1%) 30 gm TOP BID REGIS PRN Reason: Protocol Vancomycin HCl (Vancomycin 1gm) 1 gm in 250 mls @ 167 mls/hr IVPB 0600,1800 REGIS PRN Reason: Protocol Last Admin: 07/05/16 17:58 Dose: 167 mls/hr Multivitamins (Thera Tab) 1 tab PO DAILY REGIS PRN Reason: Protocol Olopatadine HCl (Patanol 0.1% Opht Soln) 5 ml OU DAILY REGIS PRN Reason: Protocol Ondansetron HCl (Zofran Inj) 4 mg IVP ONCE PRN; Protocol PRN Reason: Nausea/Vomiting Pantoprazole Sodium (Protonix Ec Tab) 40 mg PO 0630 REGIS PRN Reason: Protocol Physical Exam - Constitutional Appears: Non-toxic, No Acute Distress - Head Exam Head Exam: NORMAL INSPECTION - ENT Exam ENT Exam: Mucous Membranes Moist - Neck Exam Neck exam: Negative for: Lymphadenopathy, Meningismus - Respiratory Exam Respiratory Exam: Decreased Breath Sounds - Cardiovascular Exam Cardiovascular Exam: +S1, +S2 - GI/Abdominal Exam GI & Abdominal Exam: Soft. absent: Tenderness - Extremities Exam Additional comments: right leg with cast in place Results - Vital Signs Recent Vital Signs: Last Vital Signs Temp 99 F 07/05/16 21:22 Pulse 58 L 07/05/16 21:22 Resp 18 07/05/16 21:22 BP 125/87 07/05/16 21:22 Pulse Ox - Labs Result Diagrams: 07/06/16 06:30 07/06/16 07:30 Assessment & Plan - Assessment and Plan (Free Text) Plan: Assessment Sepsis probably secondary to infected right ankle ulcers with skin and skin structure infection and myositis with exposed tendon without evidence of osteomyelitis on MRI, in a patient with venous stasis and chronic lymphedema, growing MRSA S/P skin grafting; clinically improving HTN peripheral vascular disease chronic lymphedema with venous stasis ulcers left hip fracture S/P total hip replacement Plan continue Vancomycin (day 11) - should complete at least 2 weeks of antibiotics Follow up Podiatry re-evaluation as they may change the leg cast that he has
[2016-07-06] MEDS: Clotrimazole 1% Cream(30 gm) TOP SCH ×2 (18:27→22:49)
[2016-07-07] MEDS: Pantoprazole 40 mg EC Tab PO SCH (05:36)
[2016-07-07] MEDS: Enoxaparin 40 mg Syringe SC SCH (05:36)
[2016-07-07] MEDS: Vancomycin 1gm in NS 250ml 1 GM/250 ML BAG IVPB SCH ×2 (05:37→17:12)
[2016-07-07] MEDS: Multivitamin Therapeutic Tab PO SCH (09:20)
[2016-07-07] MEDS: Clotrimazole 1% Cream(30 gm) TOP SCH ×2 (09:20→17:11)
[2016-07-07] MEDS: Olopatadine 0.1% Opht Sol OU SCH (09:20)
--- NOTE | 2016-07-07 14:06 | PN ---
DATE: 07/07/2016 The patient is seen in room 303. No fevers and no chills, no nausea. PHYSICAL EXAMINATION: VITAL SIGNS: Temperature is 98, blood pressure is 108/70, respiratory rate of 16. HEENT: Unremarkable. NECK: Supple. LUNGS: Have decreased breath sounds. HEART: Normal S1, S2. ABDOMEN: Soft, nontender. LABORATORY EXAMINATION: Reveals a white count of 10,000, hemoglobin of 14, platelets of 345. Chemis tries reveals the BUN of 12, creatinine of 0.9. Microbiology is noted. ASSESSMENT AND PLAN: A 60-year-old male with hypertension and sepsis, secondary to infected right fo ot ankle, right ankle ulcer, and skin and skin soft tissue infection, myositis, exposed tendon withou t evidence of osteomyelitis on the MRI. Currently, on vancomycin day #12. Would complete at least 2 weeks of antibiotics with podiatry evaluation and followup. The patient also with vancomycin trough level of 13.6 on the 30th. Review of the orders confirms the patient's vancomycin to be active. Davide Powell MD cc: 350 TT: 07/07/2016 14:05:57 Confirmation # [id number] Dictation # [id number] en
[2016-07-08] MEDS: Enoxaparin 40 mg Syringe SC SCH (05:25)
[2016-07-08] MEDS: Vancomycin 1gm in NS 250ml 1 GM/250 ML BAG IVPB SCH ×2 (05:26→17:38)
[2016-07-08] MEDS: Pantoprazole 40 mg EC Tab PO SCH (05:29)
[2016-07-08] MEDS: Multivitamin Therapeutic Tab PO SCH (09:43)
[2016-07-08] MEDS: Olopatadine 0.1% Opht Sol OU SCH (09:43)
--- NOTE | 2016-07-08 09:45 | PN ---
DATE: 07/08/2016 The patient is in bed, in no acute distress, nontoxic. PHYSICAL EXAMINATION: VITAL SIGNS: Temperature of 98, blood pressure is 106/70, respiratory rate of 18. HEENT: Unremarkable. NECK: Supple. LUNGS: Have decreased breath sounds. HEART: Normal S1, S2. ABDOMEN: Soft, nontender. LABORATORY DATA: Reveals a white count of 10,900, hemoglobin of 14, platelets of 345. Chemistries r eveal the BUN of 12, creatinine of 0.9. ASSESSMENT AND PLAN: This is a 60-year-old with hypertension and sepsis secondary to infected right foot and right ankle ulcer, and skin and soft tissue infection and myositis and exposed tendon; altho ugh, on MRI no evidence of osteomyelitis. Currently on vancomycin day #13. Will continue the presen t course. Would complete at least 14 days, perhaps longer. Will order a vancomycin trough; the last one was 13.6 on 07/03/2016. Review of the medications reveals the patient receives his vancomycin a t 6 a.m. and 6 p.m. Will order one for tomorrow at 5 a.m., an hour before the 6 a.m. dose. Will als o order a sed rate and a C-reactive protein. Review of the creatinine reveals the patient's last cre atinine to be 0.9. Davide Powell MD cc: 350 TT: 07/08/2016 09:45:09 Confirmation # [id number] Dictation # [id number] mn
--- NOTE | 2016-07-08 10:24 | PN ---
DATE: 07/07/2016 A 60-year-old male came in with cellulitis. The patient in TCU, doing better, walking with a walker will be seen by Dr. Escamilla for evaluation of his foot and cast adjustment. The patient is stable. Otherwise, no chest pain, no short of breath. PHYSICAL EXAMINATION: VITAL SIGNS: Temperature is 99.3, heart rate 54, blood pressure 120/73, respirations 18, saturation 95% on room air. HEAD AND NECK: Normal. No JVD, no thyromegaly. CHEST: Clear, good air entry. CARDIAC: First sound, second sound normal. ABDOMEN: Soft, nontender. EXTREMITIES: There is bilateral chronic venous insufficiency and mild edema with right leg cast belo w the knee and on the left with a gauze covering from his toes up to his ankle. NEUROLOGIC: The patient moves all extremities. LABORATORY DATA: White count 10.9, hemoglobin 14.3, hematocrit 39.5, platelets 345. Sodium 140, pot assium 3.8, chloride 103, bicarb 25, BUN 12, creatinine 0.9, blood sugar 112. Liver functions test i s normal. Total protein 8.4. IMPRESSION AND PLAN: 1. Cellulitis of the right leg. Wound culture shows methicillin-resistant Staphylococcus aureus. C ontinue vancomycin as per infectious disease. 2. Gait disorder. Continue physical therapy on daily basis. 3. Continue gastrointestinal, Protonix and Lovenox for deep venous thrombosis prophylaxis. 4. History of alcohol abuse, stable, no withdrawal. Librium p.r.n. basis. Continue current treatme nt. We will follow up clinically. We will discuss further with the infectious disease about the tayler gth of the IV antibiotic by ____. There is no evidence of osteomyelitis on MRI; however, he shou ld continue. He is currently on day 11 out of 14 days. The patient will continue 3 or 4 more days b efore discharge. Continue current IV therapy. Follow up clinically. Garth Nelson MD cc: 223 TT: 07/08/2016 10:23:57 Confirmation # [id number] Dictation # [id number] tn
--- NOTE | 2016-07-08 17:40 | PN ---
DATE: 07/08/2016 HISTORY OF PRESENT ILLNESS: A 60-year-old male seen at bedside for continued evaluation and manageme nt of a stage IV ulceration on his right lower leg which had undergone skin grafting approximately 1 week ago and for venous stasis ulceration on his left ankle. The patient presents at bedside with a total contact cast on his right lower extremity, which is clean, dry and intact. The patient's vital signs reveal a temperature of 98.2, pulse rate of 60, blood pressure 107/74, respiratory rate of 18. Most recent microbiology report reveals a white count of 10.9, hemoglobin of 39.5, hematocrit of 14. 3. Most recent laboratory is 10.9 white blood cell count, hemoglobin is 14.3, hematocrit is 39.5, pl atelet count is 345 and his ESR is 24. Most recent microbiology report reveals MRSA in his left leg wound. OBJECTIVE: There is a venous stasis ulceration on his left ankle, which remains granular with serous drainage. The wound does not probe to tendon or bone. There is no purulence to suggest underlying abscess formation. There are no signs of localized or ascending cellulitis. PLAN AND TREATMENT: The wound was cleansed with normal sterile saline and we applied a new 3-layer c ompression dressing to his left lower leg. We will keep his total contact cast intact and we will co ntinue with IV antibiotics as per infectious disease. He will be seen and followed daily. Chuckie Almazan DPM cc: 344 TT: 07/08/2016 17:39:22 Confirmation # [id number] Dictation # [id number] ln
--- NOTE | 2016-07-08 23:03 | PN ---
DATE: 07/08/2016 A 60-year-old male. The patient seems stable. Getting IV antibiotics. Seen by Dr. Escamilla. A cast right foot has been changed. The patient is walking, still needs some training; otherwise, no new complaints. PHYSICAL EXAMINATION: VITAL SIGNS: Temperature 98.2, heart rate 79, blood pressure 119/81, respirations 20, saturation 100 % on room air. HEAD AND NECK: Normal. No JVD, no thyromegaly. CHEST: Clear, good entry. CARDIAC: First sound and second sound normal. ABDOMEN: Obese, soft, nontender. EXTREMITIES: Cast on the right foot and left foot also has a dressing around the foot and ankle. LABORATORY DATA: SED rate 24. IMPRESSION AND PLAN: 1. Cellulitis, right leg, status post surgery for exposed tendon with skin grafting, history of meth icillin-resistant Staphylococcus aureus on wound cultures. Continue IV vancomycin. The patient need s a total of 2 weeks as per infectious disease recommendations, 3 more days and will be done. Contin ue current treatment. 2. Gait disorder secondary to his chronic venous insufficiency, chronic arthritis and chronic foot p roblems with chronic leg edema and venous insufficiency. Continue walking with the use a walker ever y day. 4. History of alcohol abuse. Seems stable, no withdrawal. 5. Continue gastrointestinal and deep vein thrombosis prophylaxis. Will follow up as an outpatient. Garth Nelson MD cc: 223 TT: 07/08/2016 23:02:35 Confirmation # [id number] Dictation # [id number] monique
[2016-07-09] MEDS: Vancomycin 1gm in NS 250ml 1 GM/250 ML BAG IVPB SCH ×2 (05:40→17:55)
[2016-07-09] MEDS: Pantoprazole 40 mg EC Tab PO SCH (05:41)
[2016-07-09] MEDS: Enoxaparin 40 mg Syringe SC SCH (05:41)
--- NOTE | 2016-07-09 08:33 | CP.PCM.PN ---
<TrentonThaddeus H - Last Filed: 07/09/16 08:39> Subjective - Date & Time of Evaluation Date of Evaluation: 07/09/16 Time of Evaluation: 07:55 - Subjective Subjective: 60 year old male seen at bedside with Dr. Almazan 10 days s/p right leg wound debridement with integra graft application. Patient's dressing remains c/d/i, the cast remains intact to right foot and dressing remains intact to left foot and leg. Patient denies any acute events overnight. He denies any pain to his lower extremities. Patient denies n/f/v/c/d/sob. Objective - Vital Signs/Intake and Output Vital Signs (last 24 hours): Temp Pulse Resp BP Pulse Ox 98 F 48 L 18 91/56 L 96 07/09/16 06:00 07/09/16 06:00 07/09/16 06:00 07/09/16 06:00 07/09/16 06:00 - Medications Medications: Current Medications Acetaminophen (Tylenol 325mg Tab) 650 mg PO Q4H PRN; Protocol PRN Reason: Pain, Mild (1-3) Chlordiazepoxide (Librium) 10 mg PO Q8 PRN; Protocol PRN Reason: Agitation Enoxaparin Sodium (Lovenox) 40 mg SC 0600 REGIS PRN Reason: Protocol Last Admin: 07/09/16 05:41 Dose: 40 mg Vancomycin HCl (Vancomycin 1gm) 1 gm in 250 mls @ 167 mls/hr IVPB 0600,1800 REGIS PRN Reason: Protocol Last Admin: 07/09/16 05:40 Dose: 167 mls/hr Multivitamins (Thera Tab) 1 tab PO DAILY REGIS PRN Reason: Protocol Last Admin: 07/08/16 09:43 Dose: 1 tab Olopatadine HCl (Patanol 0.1% Opht Soln) 5 ml OU DAILY REGIS PRN Reason: Protocol Last Admin: 07/08/16 09:43 Dose: 1 drop Ondansetron HCl (Zofran Inj) 4 mg IVP ONCE PRN; Protocol PRN Reason: Nausea/Vomiting Pantoprazole Sodium (Protonix Ec Tab) 40 mg PO 0630 REGIS PRN Reason: Protocol Last Admin: 07/09/16 05:41 Dose: 40 mg - Labs Labs: 07/06/16 06:30 07/06/16 07:30 - Constitutional Appears: No Acute Distress - Extremities Exam Additional comments: LLE exam: Derm: Superficial venous stasis ulceration to ankle with granular base, minimal serous drainage, no purulence, wound does not probe deep, no signs of cellulitis. Diffuse xerosis of entire leg. Vascular: DP and PT pulses non-palpable, CFT <5sec, temperature unremarkable. Neuro: Gross sensation diminished. RLE exam: Cast clean, dry and intact. - Neurological Exam Neurological Exam: Alert, Awake, Oriented x3 Assessment and Plan - Assessment and Plan (Free Text) Assessment: 60 year old male seen at bedside 10 days s/p right leg wound debridement and graft application, and left leg superficial venous stasis ulceration Plan: patient evaluated with Dr. Almazan labs and vitals reviewed RLE dressings to remain clean, dry, intact LLE ulceration cleansed with normal sterile saline, dressed with xeroform and 3- layer compression dressing. continue physical therapy continue IV abx as per ID podiatry will continue to monitor while patient remains in house <Chuckie Almazan - Last Filed: 07/12/16 12:04> Objective - Vital Signs/Intake and Output Vital Signs (last 24 hours): Temp Pulse Resp BP Pulse Ox 98.4 F 56 L 18 101/72 99 07/12/16 10:00 07/12/16 10:00 07/12/16 10:00 07/12/16 10:00 07/12/16 10:00 - Medications Medications: Current Medications Acetaminophen (Tylenol 325mg Tab) 650 mg PO Q4H PRN; Protocol PRN Reason: Pain, Mild (1-3) Chlordiazepoxide (Librium) 10 mg PO Q8 PRN; Protocol PRN Reason: Agitation Enoxaparin Sodium (Lovenox) 40 mg SC 0600 [facility] PRN Reason: Protocol Last Admin: 07/12/16 06:03 Dose: 40 mg Vancomycin HCl (Vancomycin 1gm) 1 gm in 250 mls @ 167 mls/hr IVPB 0600,1800 REGIS PRN Reason: Protocol Last Admin: 07/12/16 06:03 Dose: 167 mls/hr Lactic Acid (Lac-Hydrin 12% Cream (140 G)) 0 ea TOP DAILY [facility] Last Admin: 07/12/16 10:08 Dose: 1 applic Multivitamins (Thera Tab) 1 tab PO DAILY [facility] PRN Reason: Protocol Last Admin: 07/12/16 10:09 Dose: 1 tab Olopatadine HCl (Patanol 0.1% Opht Soln) 5 ml OU DAILY REGIS PRN Reason: Protocol Last Admin: 07/12/16 10:09 Dose: 1 drop Ondansetron HCl (Zofran Inj) 4 mg IVP ONCE PRN; Protocol PRN Reason: Nausea/Vomiting Pantoprazole Sodium (Protonix Ec Tab) 40 mg PO 0630 REGIS PRN Reason: Protocol Last Admin: 07/12/16 06:03 Dose: 40 mg - Labs Labs: 07/06/16 06:30 07/11/16 18:35 Attending/Attestation - Attestation I have personally seen and examined this patient.: Yes I have fully participated in the care of the patient.: Yes I have reviewed all pertinent clinical information, including history, physical exam and plan: Yes
--- NOTE | 2016-07-09 10:43 | PN ---
DATE: 07/09/2016 The patient is in bed in no acute distress, nontoxic. PHYSICAL EXAMINATION: VITAL SIGNS: Temperature is 98, blood pressure is 90/50, respiratory rate of 18, heart rate of 48. HEENT: Unremarkable. NECK: Supple. LUNGS: Have decreased breath sounds. HEART: Normal S1, S2. ABDOMEN: Soft, nontender. LABORATORY DATA: Reveals a white count of 10,000, hemoglobin of 14, platelets of 345 and sed rate is 24, BUN of 12, creatinine of 0.9. Dr. Thaddeus Chowdhury's note is reviewed. Review of the orders r eveals the patient's vancomycin to be a gram q. 12 and vancomycin trough level was less than 5. It w as 13.6 on results prior to that. ASSESSMENT AND PLAN: This is a 60-year-old male with hypertension with sepsis secondary to infected right foot and right ankle ulcer and soft tissue and soft tissue infection and myositis, exposed tend on, although on MRI, no evidence of osteomyelitis. On vancomycin day #14. We will continue the vanc omycin and repeat a vancomycin level, which is read as less than 5 which is not accurate. The patien t's sed rate now, as of yesterday, is 24, mildly elevated with a C-reactive protein, which is also mi ldly elevated at 10.89. Review of the medications reveals the patient to be receiving vancomycin at 6:00 a.m. and 6:00 p.m. We will repeat a vancomycin level at 5:00 p.m. jazlyn. Davide Powell MD cc: 350 TT: 07/09/2016 10:42:31 Confirmation # [id number] Dictation # [id number] elier
[2016-07-09] MEDS: Ammonium Lactate 12% Cream (140 g) TOP SCH (10:50)
[2016-07-09] MEDS: Olopatadine 0.1% Opht Sol OU SCH (10:52)
[2016-07-09] MEDS: Multivitamin Therapeutic Tab PO SCH (10:52)
[2016-07-10] MEDS: Vancomycin 1gm in NS 250ml 1 GM/250 ML BAG IVPB SCH ×2 (05:15→18:03)
[2016-07-10] MEDS: Enoxaparin 40 mg Syringe SC SCH (05:16)
[2016-07-10] MEDS: Pantoprazole 40 mg EC Tab PO SCH (06:33)
--- NOTE | 2016-07-10 09:00 | PN ---
DATE: 07/10/2016 The patient is in bed, in no acute distress, nontoxic. PHYSICAL EXAMINATION: VITAL SIGNS: Temperature is 98, blood pressure is 170/70, respiratory rate of 18. HEENT: Unremarkable. NECK: Supple. LUNGS: Have decreased breath sounds. HEART: Normal S1, S2. ABDOMEN: Soft, nontender. LABORATORY EXAMINATION: Reveals a white count of 10,900, hemoglobin of 14, platelets of 345. Chemis tries reveals a BUN of 12, creatinine of 0.9. C-reactive protein is 10.8. Vancomycin trough is note d to be 13.8 yesterday. Review of orders reveals the patient to be on vancomycin, which requires renewal. ASSESSMENT AND PLAN: A 60-year-old male with hypertension, sepsis secondary to infected right foot a nd right ankle ulcer and soft tissue and myositis, exposed tendon and an MRI, no evidence of osteomye litis. Today is day #15 of vancomycin. Vancomycin trough level of 13.6. We will continue to follow closely with you. Davide Powell MD cc: 350 TT: 07/10/2016 08:59:55 Confirmation # [id number] Dictation # [id number] en
[2016-07-10] MEDS: Ammonium Lactate 12% Cream (140 g) TOP SCH (09:17)
[2016-07-10] MEDS: Multivitamin Therapeutic Tab PO SCH (09:17)
[2016-07-10] MEDS: Olopatadine 0.1% Opht Sol OU SCH (10:55)
--- NOTE | 2016-07-10 18:24 | PN ---
DATE: 07/09/2016 The patient is stable. No new complaint, no chest pain, no short of breath, getting some physical th erapy for gait disorder. Cast has been changed. He is still having problems walking. The patient i s currently on IV vancomycin. PHYSICAL EXAMINATION: VITAL SIGNS: Temperature 97, heart rate 55, blood pressure is 105/72, respiration 14, saturation 98% . HEAD AND NECK: Normal. No JVD, no thyromegaly. CHEST: Clear, good entry. CARDIAC: First sound and second sound normal. ABDOMEN: Soft, obese, and nontender. EXTREMITIES: There is a cast on the right leg. Left leg is wrapped with gauze. NEUROLOGIC: Normal. LABORATORY DATA: No labs. IMPRESSION: 1. Status post right leg graft and cellulitis. Continue IV vancomycin. 2. Gait disorder. The patient has a cast on the right leg and left leg chronic venous insufficiency with chronic venous stasis and also wrapped with gauze. The patient has problems walking. Continue physical therapy. Continue to use a walker. 3. History of alcohol abuse, stable. No new complaint. Continue gastrointestinal and deep venous t hrombosis prophylaxis. CURRENT MEDICATIONS: Zofran, vancomycin, Tylenol, multivitamin, Protonix, Patanol for allergic conju nctivitis, Lovenox 40 for DVT prophylaxis, Librium p.r.n. for any withdrawal. Also, the patient is g etting Lac-Hydrin topically for affected leg. Continue current treatment. Garth Nelson MD cc: 223 TT: 07/10/2016 18:23:28 Confirmation # [id number] Dictation # [id number] dn
--- NOTE | 2016-07-10 18:26 | PN ---
DATE: 07/10/2016 The patient is stable, comfortable, no new complaint, no distress. PHYSICAL EXAMINATION: VITAL SIGNS: Temperature 98, heart rate 56, blood pressure 104/70, respirations 14. HEAD AND NECK: Normal. No JVD, no thyromegaly. CHEST: Clear, good entry. CARDIAC: First sound and second sound normal. ABDOMEN: Obese, nontender. EXTREMITIES: Right leg cast, left leg wrapped with gauze. NEUROLOGIC: Normal. IMPRESSION: 1. Cellulitis, right leg. Continue IV vancomycin. 2. Right leg status post grafting of full thickness tear of the skin with exposed tendons. The danilo ent seems to be doing well. The patient had a cast on top of his right foot that he had the surgery. Continue current treatment. 3. Gait disorder. Continue physical therapy and gait training every day. 4. Continue deep venous thrombosis and gastrointestinal prophylaxis. 5. The patient also has a history of alcohol abuse, seems stable. The patient will be discharged probably tomorrow. Garth Nelson MD cc: 223 TT: 07/10/2016 18:26:10 Confirmation # [id number] Dictation # [id number] dn
[2016-07-11] MEDS: Vancomycin 1gm in NS 250ml 1 GM/250 ML BAG IVPB SCH ×2 (05:39→17:08)
[2016-07-11] MEDS: Enoxaparin 40 mg Syringe SC SCH (05:39)
[2016-07-11] MEDS: Pantoprazole 40 mg EC Tab PO SCH (05:40)
[2016-07-11] MEDS: Multivitamin Therapeutic Tab PO SCH (10:27)
[2016-07-11] MEDS: Ammonium Lactate 12% Cream (140 g) TOP SCH (10:27)
[2016-07-11] MEDS: Olopatadine 0.1% Opht Sol OU SCH (10:28)
--- NOTE | 2016-07-11 14:55 | CP.PCM.PN ---
<RiverBelen - Last Filed: 07/11/16 14:52> Subjective - Date & Time of Evaluation Date of Evaluation: 07/11/16 Time of Evaluation: 14:52 - Subjective Subjective: 60 year old male seen at bedside with Dr. Escamilla 12 days s/p right leg wound debridement with integra graft application. Patient's dressing remains c/d/i, the cast remains intact to right foot and dressing remains intact to left foot and leg. Patient denies any acute events overnight. He denies any pain to his lower extremities. Patient denies n/f/v/c/d/sob. Objective - Vital Signs/Intake and Output Vital Signs (last 24 hours): Temp Pulse Resp BP Pulse Ox 98.5 F 87 20 134/85 97 07/11/16 10:00 07/11/16 10:00 07/11/16 10:00 07/11/16 10:00 07/11/16 10:00 - Medications Medications: Current Medications Acetaminophen (Tylenol 325mg Tab) 650 mg PO Q4H PRN; Protocol PRN Reason: Pain, Mild (1-3) Chlordiazepoxide (Librium) 10 mg PO Q8 PRN; Protocol PRN Reason: Agitation Enoxaparin Sodium (Lovenox) 40 mg SC 0600 [facility] PRN Reason: Protocol Last Admin: 07/11/16 05:39 Dose: 40 mg Vancomycin HCl (Vancomycin 1gm) 1 gm in 250 mls @ 167 mls/hr IVPB 0600,1800 [facility] PRN Reason: Protocol Last Admin: 07/11/16 05:39 Dose: 167 mls/hr Lactic Acid (Lac-Hydrin 12% Cream (140 G)) 0 ea TOP DAILY [facility] Last Admin: 07/11/16 10:27 Dose: 1 applic Multivitamins (Thera Tab) 1 tab PO DAILY [facility] PRN Reason: Protocol Last Admin: 07/11/16 10:27 Dose: 1 tab Olopatadine HCl (Patanol 0.1% Opht Soln) 5 ml OU DAILY [facility] PRN Reason: Protocol Last Admin: 07/11/16 10:28 Dose: 2 drop Ondansetron HCl (Zofran Inj) 4 mg IVP ONCE PRN; Protocol PRN Reason: Nausea/Vomiting Pantoprazole Sodium (Protonix Ec Tab) 40 mg PO 0630 [facility] PRN Reason: Protocol Last Admin: 07/11/16 05:40 Dose: 40 mg - Labs Labs: 07/06/16 06:30 07/06/16 07:30 - Constitutional Appears: Well, Non-toxic, No Acute Distress - Extremities Exam Additional comments: Lower extremity focused exam: Cast clean, dry, intact to right lower extremity Dressing clean, dry, intact to left lower extremity - Neurological Exam Neurological Exam: Alert, Awake, Oriented x3 - Psychiatric Exam Psychiatric exam: Normal Affect, Normal Mood Assessment and Plan - Assessment and Plan (Free Text) Assessment: 60 year old male seen at bedside 12 days s/p right leg wound debridement and graft application, and left leg superficial venous stasis ulceration Plan: patient examined and evaluated discussed with attending Dr. Escamilla chart, labs, vitals reviewed RLE dressing to remain clean, dry, intact LLE dressing to remain clean, dry, intact continue physical therapy continue IV abx as per ID podiatry will continue to monitor while patient remains in house patient to follow up in the wound care center upon d/c <Nancie Escamilla - Last Filed: 08/07/16 16:29> Objective - Vital Signs/Intake and Output Vital Signs (last 24 hours): Temp Pulse Resp BP Pulse Ox 98 F 68 18 103/65 99 07/15/16 10:00 07/15/16 10:00 07/15/16 10:00 07/15/16 10:00 07/15/16 10:00 - Labs Labs: 07/14/16 09:00 07/14/16 09:00 Attending/Attestation - Attestation I have personally seen and examined this patient.: Yes I have fully participated in the care of the patient.: Yes I have reviewed all pertinent clinical information, including history, physical exam and plan: Yes
[2016-07-11 18:53] LABS: ALB/GLOB RATIO 0.8 (1.1-1.8); ALKALINE PHOSPHATASE 59 U/L (38-133); ALT/SGPT 28 U/L (7-56); AST/SGOT 42 U/L (15-59); BILIRUBIN,TOTAL 0.6 mg/dL (0.2-1.3); BLOOD UREA NITROGEN 16 mg/dL (7-21); CALCIUM 9.3 mg/dL (8.4-10.5); CARBON DIOXIDE 25 mmol/L (21-33); CHLORIDE 101 mmol/L (98-107); GFR AFRICAN-AMERICAN > 60; GLUCOSE,RANDOM 155 mg/dL (70-110); POTASSIUM 3.9 mmol/L (3.6-5.0); SODIUM 135 mmol/L (132-148); TOTAL PROTEIN 8.4 g/dL (5.8-8.3)
[2016-07-12] MEDS: Vancomycin 1gm in NS 250ml 1 GM/250 ML BAG IVPB SCH ×2 (06:03→17:27)
[2016-07-12] MEDS: Pantoprazole 40 mg EC Tab PO SCH (06:03)
[2016-07-12] MEDS: Enoxaparin 40 mg Syringe SC SCH (06:03)
--- NOTE | 2016-07-12 08:15 | PN ---
DATE: 07/11/2016 The patient is in bed in no acute distress, nontoxic. PHYSICAL EXAMINATION: VITAL SIGNS: Temperature is 98, blood pressure is 112/70, respiratory rate of 16. HEENT: Unremarkable. NECK: Supple. LUNGS: Have decreased breath sounds. HEART: Normal S1, S2. ABDOMEN: Soft, nontender. LABORATORY DATA: Noted and vancomycin trough is noted to be 13.8. Review of orders reveals the danilo ent still to be on vancomycin. ASSESSMENT AND PLAN: This is a 60-year-old male with hypertension and sepsis, secondary infected rig ht foot, right ankle ulcer, soft tissue myositis and exposed tendon. On MRI, no evidence of osteomye litis. Today is day #16 of vancomycin. Will follow closely with you and will order chemistries. Th e duration of the vancomycin we will discuss with podiatry. Davide Powell MD cc: [phone] TT: 07/11/2016 18:04:27 Confirmation # [id number] Dictation # [id number] mn
--- NOTE | 2016-07-12 09:18 | PN ---
DATE: 07/11/2016 The patient is stable, doing physical therapy. The patient will be extended his physical therapy for another few days. He still needs more physical therapy. The patient agreed. We will continue. PHYSICAL EXAMINATION: VITAL SIGNS: Temperature 98.5, heart rate 87, blood pressure 134/85, respiration 18. HEAD AND NECK: Normal No JVD, no thyromegaly. CHEST: Clear, good entry. CARDIAC: First sound, second sound normal: ABDOMEN: Soft, obese, nontender. EXTREMITIES: Right leg cast. Left leg is covered with gauze. NEUROLOGIC: Normal. LABORATORY DATA: No labs. IMPRESSION: 1. Right leg cellulitis, status post skin grafting for full thickness skin tear with tendon exposure . The patient seems to be doing okay, needs more physical therapy and gait training, especially with the heavy right leg cast and also with problem with his left leg already and has hip osteoarthritis. Continue physical therapy. We will extend it and we will follow up on daily basis. 2. As we mentioned, cellulitis. Continue IV vancomycin. 3. History of alcohol abuse, history of osteoarthritis, allergic conjunctivitis. Continue atenolol, Patanol, continue Librium p.r.n. Continue Lovenox for deep venous thrombosis prophylaxis. Follow u p clinically. Garth Nelson MD cc: [phone] TT: 07/12/2016 09:18:23 Confirmation # [id number] Dictation # [id number] tn
[2016-07-12] MEDS: Ammonium Lactate 12% Cream (140 g) TOP SCH (10:08)
[2016-07-12] MEDS: Multivitamin Therapeutic Tab PO SCH (10:09)
[2016-07-12] MEDS: Olopatadine 0.1% Opht Sol OU SCH (10:09)
--- NOTE | 2016-07-12 13:10 | CP.PCM.PN ---
<HolmanBelen - Last Filed: 07/12/16 13:07> Subjective - Date & Time of Evaluation Date of Evaluation: 07/12/16 Time of Evaluation: 13:07 - Subjective Subjective: 60 year old male seen at bedside 13 days s/p right leg wound debridement with integra graft application. Patient's dressing remains c/d/i, the cast remains intact to right foot and dressing remains intact to left foot and leg. Patient denies any acute events overnight. He denies any pain to his lower extremities. Patient denies n/f/v/c/d/sob. Objective - Vital Signs/Intake and Output Vital Signs (last 24 hours): Temp Pulse Resp BP Pulse Ox 98.4 F 56 L 18 101/72 99 07/12/16 10:00 07/12/16 10:00 07/12/16 10:00 07/12/16 10:00 07/12/16 10:00 - Medications Medications: Current Medications Acetaminophen (Tylenol 325mg Tab) 650 mg PO Q4H PRN; Protocol PRN Reason: Pain, Mild (1-3) Chlordiazepoxide (Librium) 10 mg PO Q8 PRN; Protocol PRN Reason: Agitation Enoxaparin Sodium (Lovenox) 40 mg SC 0600 [facility] PRN Reason: Protocol Last Admin: 07/12/16 06:03 Dose: 40 mg Vancomycin HCl (Vancomycin 1gm) 1 gm in 250 mls @ 167 mls/hr IVPB 0600,1800 [facility] PRN Reason: Protocol Last Admin: 07/12/16 06:03 Dose: 167 mls/hr Lactic Acid (Lac-Hydrin 12% Cream (140 G)) 0 ea TOP DAILY [facility] Last Admin: 07/12/16 10:08 Dose: 1 applic Multivitamins (Thera Tab) 1 tab PO DAILY [facility] PRN Reason: Protocol Last Admin: 07/12/16 10:09 Dose: 1 tab Olopatadine HCl (Patanol 0.1% Opht Soln) 5 ml OU DAILY [facility] PRN Reason: Protocol Last Admin: 07/12/16 10:09 Dose: 1 drop Ondansetron HCl (Zofran Inj) 4 mg IVP ONCE PRN; Protocol PRN Reason: Nausea/Vomiting Pantoprazole Sodium (Protonix Ec Tab) 40 mg PO 0630 [facility] PRN Reason: Protocol Last Admin: 07/12/16 06:03 Dose: 40 mg - Labs Labs: 07/06/16 06:30 07/11/16 18:35 - Constitutional Appears: Well, Non-toxic, No Acute Distress - Extremities Exam Additional comments: Lower extremity focused exam: Cast clean, dry, intact to right lower extremity Dressing clean, dry, intact to left lower extremity - Neurological Exam Neurological Exam: Alert, Awake, Oriented x3 - Psychiatric Exam Psychiatric exam: Normal Affect, Normal Mood Assessment and Plan - Assessment and Plan (Free Text) Assessment: 60 year old male seen at bedside 13 days s/p right leg wound debridement and graft application, and left leg superficial venous stasis ulceration Plan: patient examined and evaluated discussed with attending Dr. Almazan chart, labs, vitals reviewed RLE dressing to remain clean, dry, intact LLE dressing to remain clean, dry, intact continue physical therapy continue IV abx as per ID podiatry will continue to monitor while patient remains in house patient to follow up in the wound care center upon d/c <Chuckie Almazan - Last Filed: 07/15/16 11:26> Objective - Vital Signs/Intake and Output Vital Signs (last 24 hours): Temp Pulse Resp BP Pulse Ox 98.2 F 57 L 16 105/66 96 07/15/16 05:54 07/15/16 05:54 07/15/16 05:54 07/15/16 05:54 07/15/16 05:54 - Medications Medications: Current Medications Acetaminophen (Tylenol 325mg Tab) 650 mg PO Q4H PRN; Protocol PRN Reason: Pain, Mild (1-3) Chlordiazepoxide (Librium) 10 mg PO Q8 PRN; Protocol PRN Reason: Agitation Vancomycin HCl (Vancomycin 1gm) 1 gm in 250 mls @ 167 mls/hr IVPB 0600,1800 [facility] PRN Reason: Protocol Last Admin: 07/15/16 05:42 Dose: 167 mls/hr Lactic Acid (Lac-Hydrin 12% Cream (140 G)) 0 ea TOP DAILY [facility] Last Admin: 07/15/16 09:26 Dose: 1 applic Multivitamins (Thera Tab) 1 tab PO DAILY [facility] PRN Reason: Protocol Last Admin: 07/15/16 09:26 Dose: 1 tab Olopatadine HCl (Patanol 0.1% Opht Soln) 5 ml OU DAILY [facility] PRN Reason: Protocol Last Admin: 07/15/16 09:26 Dose: 1 drop Ondansetron HCl (Zofran Inj) 4 mg IVP ONCE PRN; Protocol PRN Reason: Nausea/Vomiting Pantoprazole Sodium (Protonix Ec Tab) 40 mg PO 0630 [facility] PRN Reason: Protocol Last Admin: 07/15/16 05:42 Dose: 40 mg - Labs Labs: 07/14/16 09:00 07/14/16 09:00 Attending/Attestation - Attestation I have personally seen and examined this patient.: Yes I have fully participated in the care of the patient.: Yes I have reviewed all pertinent clinical information, including history, physical exam and plan: Yes
--- NOTE | 2016-07-12 14:46 | CP.PCM.PN ---
Subjective - Date & Time of Evaluation Date of Evaluation: 07/12/16 Time of Evaluation: 12:20 - Subjective Subjective: Comfortable, afebrile, not in distress, no diarrhea, no nausea. Objective - Vital Signs/Intake and Output Vital Signs (last 24 hours): Temp Pulse Resp BP Pulse Ox 98.4 F 56 L 18 101/72 99 07/12/16 10:00 07/12/16 10:00 07/12/16 10:00 07/12/16 10:00 07/12/16 10:00 - Medications Medications: Current Medications Acetaminophen (Tylenol 325mg Tab) 650 mg PO Q4H PRN; Protocol PRN Reason: Pain, Mild (1-3) Chlordiazepoxide (Librium) 10 mg PO Q8 PRN; Protocol PRN Reason: Agitation Enoxaparin Sodium (Lovenox) 40 mg SC 0600 [facility] PRN Reason: Protocol Last Admin: 07/12/16 06:03 Dose: 40 mg Vancomycin HCl (Vancomycin 1gm) 1 gm in 250 mls @ 167 mls/hr IVPB 0600,1800 [facility] PRN Reason: Protocol Last Admin: 07/12/16 06:03 Dose: 167 mls/hr Lactic Acid (Lac-Hydrin 12% Cream (140 G)) 0 ea TOP DAILY [facility] Last Admin: 07/12/16 10:08 Dose: 1 applic Multivitamins (Thera Tab) 1 tab PO DAILY [facility] PRN Reason: Protocol Last Admin: 07/12/16 10:09 Dose: 1 tab Olopatadine HCl (Patanol 0.1% Opht Soln) 5 ml OU DAILY [facility] PRN Reason: Protocol Last Admin: 07/12/16 10:09 Dose: 1 drop Ondansetron HCl (Zofran Inj) 4 mg IVP ONCE PRN; Protocol PRN Reason: Nausea/Vomiting Pantoprazole Sodium (Protonix Ec Tab) 40 mg PO 0630 [facility] PRN Reason: Protocol Last Admin: 07/12/16 06:03 Dose: 40 mg - Labs Labs: 07/06/16 06:30 07/11/16 18:35 - Constitutional Appears: Non-toxic, No Acute Distress - Head Exam Head Exam: NORMAL INSPECTION - ENT Exam ENT Exam: Mucous Membranes Moist - Neck Exam Neck Exam: absent: Lymphadenopathy, Meningismus - Respiratory Exam Respiratory Exam: Decreased Breath Sounds - Cardiovascular Exam Cardiovascular Exam: +S1, +S2 - GI/Abdominal Exam GI & Abdominal Exam: Soft. absent: Tenderness - Extremities Exam Additional comments: right leg with hard cast in place Assessment and Plan - Assessment and Plan (Free Text) Plan: Assessment Sepsis probably secondary to infected right ankle ulcers with skin and skin structure infection and myositis with exposed tendon without evidence of osteomyelitis on MRI, in a patient with venous stasis and chronic lymphedema, growing MRSA S/P skin grafting; clinically improving HTN peripheral vascular disease chronic lymphedema with venous stasis ulcers left hip fracture S/P total hip replacement Plan continue Vancomycin (day 17) - will continue antibiotics while the patient is in TRCU will monitor clinically
[2016-07-13] MEDS: Enoxaparin 40 mg Syringe SC SCH (05:32)
[2016-07-13] MEDS: Pantoprazole 40 mg EC Tab PO SCH (05:32)
[2016-07-13] MEDS: Vancomycin 1gm in NS 250ml 1 GM/250 ML BAG IVPB SCH ×2 (05:33→17:09)
[2016-07-13] MEDS ORDERED: Unna Boot TOP ONE (09:05)
[2016-07-13] MEDS: Olopatadine 0.1% Opht Sol OU SCH (10:23)
[2016-07-13] MEDS: Multivitamin Therapeutic Tab PO SCH (10:24)
--- NOTE | 2016-07-13 16:25 | CP.PCM.PN ---
<Belen Holman - Last Filed: 07/13/16 16:22> Subjective - Date & Time of Evaluation Date of Evaluation: 07/13/16 Time of Evaluation: 16:22 - Subjective Subjective: 60 year old male seen at bedside, with attending, Dr. Escamilla 14 days s/p right leg wound debridement with integra graft application. Patient's dressing remains c/d/i, the cast remains intact to right foot and dressing remains intact to left foot and leg. Patient denies any acute events overnight. He denies any pain to his lower extremities. Patient denies n/f/v/c/d/sob. Objective - Vital Signs/Intake and Output Vital Signs (last 24 hours): Temp Pulse Resp BP Pulse Ox 98.3 F 72 18 116/80 97 07/13/16 10:00 07/13/16 10:00 07/13/16 10:00 07/13/16 10:00 07/13/16 10:00 - Medications Medications: Current Medications Acetaminophen (Tylenol 325mg Tab) 650 mg PO Q4H PRN; Protocol PRN Reason: Pain, Mild (1-3) Chlordiazepoxide (Librium) 10 mg PO Q8 PRN; Protocol PRN Reason: Agitation Enoxaparin Sodium (Lovenox) 40 mg SC 0600 [facility] PRN Reason: Protocol Last Admin: 07/13/16 05:32 Dose: 40 mg Vancomycin HCl (Vancomycin 1gm) 1 gm in 250 mls @ 167 mls/hr IVPB 0600,1800 [facility] PRN Reason: Protocol Last Admin: 07/13/16 05:33 Dose: 167 mls/hr Lactic Acid (Lac-Hydrin 12% Cream (140 G)) 0 ea TOP DAILY [facility] Last Admin: 07/12/16 10:08 Dose: 1 applic Multivitamins (Thera Tab) 1 tab PO DAILY [facility] PRN Reason: Protocol Last Admin: 07/13/16 10:24 Dose: 1 tab Olopatadine HCl (Patanol 0.1% Opht Soln) 5 ml OU DAILY [facility] PRN Reason: Protocol Last Admin: 07/13/16 10:23 Dose: 1 drop Ondansetron HCl (Zofran Inj) 4 mg IVP ONCE PRN; Protocol PRN Reason: Nausea/Vomiting Pantoprazole Sodium (Protonix Ec Tab) 40 mg PO 0630 [facility] PRN Reason: Protocol Last Admin: 07/13/16 05:32 Dose: 40 mg - Labs Labs: 07/06/16 06:30 07/11/16 18:35 - Constitutional Appears: Well, Non-toxic, No Acute Distress - Extremities Exam Additional comments: Lower extremity focused exam: Vascular: DP and PT pulses non-palpable, CFT < 5sec, temperature unremarkable. Derm: Left: Superficial venous stasis ulceration to ankle with granular base, minimal serous drainage, no purulence, wound does not probe deep, no signs of cellulitis. Diffuse xerosis of entire leg. Right: grafts intact to anterior and medial rowell, upon removal the anterior rowell is noted to have liquified fibrotic tissue and tendon exposed, with some granular tissue, moderate malodor noted, with sanginous drainage, no purulences noted, no erythema. The medial ulceration site has granular base with moderate malodor noted, no drainage, no purulence noted. Neuro: Gross sensation diminished. - Neurological Exam Neurological Exam: Alert, Awake, Oriented x3 - Psychiatric Exam Psychiatric exam: Normal Affect, Normal Mood Assessment and Plan - Assessment and Plan (Free Text) Assessment: 60 year old male seen at bedside 10 days s/p right leg wound debridement and graft application, and left leg superficial venous stasis ulceration Plan: patient examined and evaluated chart, labs, vitals reviewed;afebrile cast removed from RLE, leg cleansed with normal sterile saline gila and grafts removed from RLE liquified fibrotic tissue over the right anterior ulceration was excisionally debrided with sterile scissors and forceps, until the liquified tissue was removed, bleeding was controlled with silvernitrate sticks right LE dressed with stockinette, webroll, posterior splint, and ALHAJI left LE ulceration cleansed with normal sterile saline, dressed with lac-hydrin , lotion, and kerlix continue physical therapy continue IV abx as per ID podiatry will continue to monitor while patient remains in house <Nancie Escamilla - Last Filed: 08/04/16 08:11> Objective - Vital Signs/Intake and Output Vital Signs (last 24 hours): Temp Pulse Resp BP Pulse Ox 98 F 68 18 103/65 99 07/15/16 10:00 07/15/16 10:00 07/15/16 10:00 07/15/16 10:00 07/15/16 10:00 - Labs Labs: 07/14/16 09:00 07/14/16 09:00 Attending/Attestation - Attestation I have personally seen and examined this patient.: Yes I have fully participated in the care of the patient.: Yes I have reviewed all pertinent clinical information, including history, physical exam and plan: Yes
--- NOTE | 2016-07-13 16:28 | CP.PCM.PN ---
Subjective - Date & Time of Evaluation Date of Evaluation: 07/13/16 Time of Evaluation: 11:35 - Subjective Subjective: Comfortable, afebrile, not in distress. Objective - Vital Signs/Intake and Output Vital Signs (last 24 hours): Temp Pulse Resp BP Pulse Ox 98.3 F 72 18 116/80 97 07/13/16 10:00 07/13/16 10:00 07/13/16 10:00 07/13/16 10:00 07/13/16 10:00 - Medications Medications: Current Medications Acetaminophen (Tylenol 325mg Tab) 650 mg PO Q4H PRN; Protocol PRN Reason: Pain, Mild (1-3) Chlordiazepoxide (Librium) 10 mg PO Q8 PRN; Protocol PRN Reason: Agitation Enoxaparin Sodium (Lovenox) 40 mg SC 0600 [facility] PRN Reason: Protocol Last Admin: 07/13/16 05:32 Dose: 40 mg Vancomycin HCl (Vancomycin 1gm) 1 gm in 250 mls @ 167 mls/hr IVPB 0600,1800 [facility] PRN Reason: Protocol Last Admin: 07/13/16 05:33 Dose: 167 mls/hr Lactic Acid (Lac-Hydrin 12% Cream (140 G)) 0 ea TOP DAILY [facility] Last Admin: 07/12/16 10:08 Dose: 1 applic Multivitamins (Thera Tab) 1 tab PO DAILY [facility] PRN Reason: Protocol Last Admin: 07/13/16 10:24 Dose: 1 tab Olopatadine HCl (Patanol 0.1% Opht Soln) 5 ml OU DAILY [facility] PRN Reason: Protocol Last Admin: 07/13/16 10:23 Dose: 1 drop Ondansetron HCl (Zofran Inj) 4 mg IVP ONCE PRN; Protocol PRN Reason: Nausea/Vomiting Pantoprazole Sodium (Protonix Ec Tab) 40 mg PO 0630 [facility] PRN Reason: Protocol Last Admin: 07/13/16 05:32 Dose: 40 mg - Labs Labs: 07/06/16 06:30 07/11/16 18:35 - Constitutional Appears: Non-toxic, No Acute Distress - Head Exam Head Exam: NORMAL INSPECTION - ENT Exam ENT Exam: Mucous Membranes Moist - Neck Exam Neck Exam: absent: Lymphadenopathy, Meningismus - Respiratory Exam Respiratory Exam: Decreased Breath Sounds - Cardiovascular Exam Cardiovascular Exam: +S1, +S2 - GI/Abdominal Exam GI & Abdominal Exam: Soft. absent: Tenderness - Extremities Exam Additional comments: right leg with hard cast in place Assessment and Plan - Assessment and Plan (Free Text) Plan: Assessment Sepsis probably secondary to infected right ankle ulcers with skin and skin structure infection and myositis with exposed tendon without evidence of osteomyelitis on MRI, in a patient with venous stasis and chronic lymphedema, growing MRSA S/P skin grafting; clinically improving HTN peripheral vascular disease chronic lymphedema with venous stasis ulcers left hip fracture S/P total hip replacement Plan continue Vancomycin (day 18) - will continue antibiotics while the patient is in TRCU will continue to monitor clinically
[2016-07-13] MEDS: Ammonium Lactate 12% Cream (140 g) TOP SCH (17:08)
--- NOTE | 2016-07-14 00:29 | PN ---
DATE: 07/12/2016 The patient is comfortable, no distress, still has problem with the cast walking, will be changed camilla orrow. PHYSICAL EXAMINATION: VITAL SIGNS: Temperature 98, heart rate 56, blood pressure 101/72, respirations 18, saturation 99%. HEAD AND NECK: Normal. No JVD, no thyromegaly. CHEST: Clear, good entry. CARDIAC: First and second sounds are normal. ABDOMEN: Soft, nontender. EXTREMITIES: Right leg has a cast. Left leg is wrapped with gauze. NEUROLOGIC: Normal. IMPRESSION AND PLAN: 1. Right leg cellulitis, status post skin graft for full thickness tear of his right foot. The adnilo ent has cast on the right leg, will be adjusted tomorrow. Continue IV vancomycin. 2. The patient does have a history of alcohol abuse, stable no withdrawal. Continue gastrointestina l and deep venous thrombosis prophylaxis. 3. Unsteady gait. Continue physical therapy with the walker and will follow up clinically. Garth Nelson MD cc: 223 TT: 07/14/2016 00:28:14 Confirmation # [id number] Dictation # [id number] mallory
[2016-07-14] MEDS: Vancomycin 1gm in NS 250ml 1 GM/250 ML BAG IVPB SCH ×2 (06:01→18:21)
[2016-07-14] MEDS: Pantoprazole 40 mg EC Tab PO SCH (06:01)
[2016-07-14] MEDS: Enoxaparin 40 mg Syringe SC SCH (06:03)
--- NOTE | 2016-07-14 08:12 | PN ---
DATE: 07/13/2016 The patient comfortable, right leg cast changed into a parking control officer cast. He has no chest pain, no shortn ess of breath, no new complaint. PHYSICAL EXAMINATION: VITAL SIGNS: Temperature 98.6, heart rate 65, blood pressure 108/76, respirations 18, and saturation 97%. HEAD AND NECK: Normal. No JVD, no thyromegaly. CHEST: Clear, good entry. CARDIAC: First and second sounds are normal. ABDOMEN: Soft, obese, nontender. EXTREMITIES: Right leg: Cast changed. Left leg: Gauze has been wrapped around the ankle with lunchroom attendant danyelle stasis below the knee. IMPRESSION AND PLAN: 1. Right leg cellulitis, methicillin-resistant Staphylococcus aureus. Continue IV vancomycin. 2. Right leg status post skin grafting for a full thickness tear, seems to be doing okay. Continue wound care by Podiatry. Continue IV antibiotic. 3. Unsteady gait. The patient will still need more physical therapy training and still needs to use a walker. Hopefully with the new cast adjustment, he would be able to walk better. 4. History of alcohol abuse, stable. The patient has Librium p.r.n., seems stable. Continue gastro intestinal and deep venous thrombosis prophylaxis. Follow up clinically. Garth Nelson MD cc: [phone] TT: 07/14/2016 00:32:40 Confirmation # [id number] Dictation # [id number] ks
--- NOTE | 2016-07-14 09:37 | PN ---
DATE: 07/14/2016 This is a 60-year-old male seen for serious ankle wound to his right anterior rowell. He is status pos t a week and a half having an Integra skin graft put on over that tendon, and he has been walking in a total-contact cast. Upon inspection yesterday when we removed the cast, it was noted that there wa s still malodor and heavy drainage coming from the wound underneath the Integra, thus the Integra gra ft was removed. There was purulence coming from there. The tendon was soupy, and there was some nec rosis of the tendon noted. At bedside yesterday, we did debride the tendon excisional with a sterile suture removal kit. The patient was placed in a posterior splint at that time so that we could get daily dressing changes going. We did open up today, and there is a moderate amount of drainage, alth ough at this time, there is no longer any malodor. The tendon is intact, but the top layer of the te ndon had been debrided yesterday, and there is still some soupiness around the tendon. There is no c ellulitis. There is no pus coming from it at this time, and the edema has been controlled. 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 PLAN OF TREATMENT: Culture and sensitivity was done. The patient has had no new labs since 07/08, eder s CBC was reordered. He did have an SMA done on 07/11, and we did do another SMA. The patient is scheduled to go home tomorrow. I am not sure how stable he is going to be in the post erior splint. I do have a sample of a Cam walker up at the office that I will bring to see if we can have the patient walk in that. He has to have some type of rigid splinting in order to protect the tendon from excess of movement, so that we can try to get some healing done of this wound. The patient was redressed using a foam dressing, and a posterior splint was repositioned. He will be seen and followed. Nancie Escamilla DPM cc: [phone] TT: 07/14/2016 09:36:45 Confirmation # [id number] Dictation # [id number] jn
[2016-07-14 10:00] LABS: ADD MANUAL DIFF? NO
[2016-07-14 10:04] LABS: BASO # 0.06 K/mm3 (0.0-2.0); BASO % 0.5 % (0.0-3.0); EOS # 0.8 (0.0-0.7); EOS % 7.1 % (1.5-5.0); GRAN # 6.88 (1.4-6.5); GRAN % 63.1 % (50.0-68.0); HEMATOCRIT 39.6 % (42.0-52.0); LYMPH # 2.2 (1.2-3.4); LYMPH % 20.5 % (22.0-35.0); MEAN CELL VOLUME 92.1 fL (80.0-105.0); MEAN CORPUSCULAR HEMOGLOBIN 32.3 pg (25.0-35.0); MEAN CORPUSCULAR HGB CONC 35.1 g/dl (31.0-37.0); MEAN PLATELET VOLUME 9.4 fl (7.0-11.0); MONO % 8.8 % (1.0-6.0); PLATELET COUNT 238 10^3/uL (120.0-450.0); RED CELL DISTRIBUTION WIDTH 12.2 % (11.5-14.5); WHITE BLOOD COUNT 10.9 10^3/ul (4.5-11.0)
[2016-07-14 10:14] LABS: ALB/GLOB RATIO 0.8 (1.1-1.8); ALKALINE PHOSPHATASE 60 U/L (38-133); ALT/SGPT 40 U/L (7-56); AST/SGOT 35 U/L (15-59); BILIRUBIN,TOTAL 0.8 mg/dL (0.2-1.3); BLOOD UREA NITROGEN 14 mg/dL (7-21); CALCIUM 9.3 mg/dL (8.4-10.5); CARBON DIOXIDE 28 mmol/L (21-33); CHLORIDE 101 mmol/L (98-107); GFR AFRICAN-AMERICAN > 60; GLUCOSE,RANDOM 158 mg/dL (70-110); POTASSIUM 3.8 mmol/L (3.6-5.0); SODIUM 138 mmol/L (132-148); TOTAL PROTEIN 8.6 g/dL (5.8-8.3)
[2016-07-14] MEDS: Ammonium Lactate 12% Cream (140 g) TOP SCH (10:36)
[2016-07-14] MEDS: Olopatadine 0.1% Opht Sol OU SCH (10:37)
[2016-07-14] MEDS: Multivitamin Therapeutic Tab PO SCH (10:38)
[2016-07-14 11:47] LABS: ERYTHROCYTE SEDIMENTATION RATE 53 mm/hr (0.00-15.0)
--- NOTE | 2016-07-14 13:30 | PN ---
DATE: 07/14/2016 The patient is in 303, was seen earlier today. No fevers and no chills. No nausea or vomiting. PHYSICAL EXAMINATION: VITAL SIGNS: Temperature is 98, blood pressure is 120/70, respiratory rate of 16. HEENT: Unremarkable. NECK: Supple. LUNGS: Have decreased breath sounds. HEART: Normal S1, S2. ABDOMEN: Soft, nontender. LABORATORY EXAMINATION: Reveals a white count of 10,000, hemoglobin of 13. Sed rate is 24. His rep eat one is 53. The vancomycin trough level is noted. Currently, patient is on vancomycin. ASSESSMENT AND PLAN: A 60-year-old with sepsis secondary to an infected right ankle ulcer and skin a nd skin structure infection and myositis and exposed tendon with no evidence of osteomyelitis on MRI. Currently on vancomycin day #19 and possible discharge tomorrow. May be able to switch to p.o. dox ycycline to complete 21-28 days. Davide Powell MD cc: 350 TT: 07/14/2016 13:30:13 Confirmation # [id number] Dictation # [id number] en
[2016-07-15] MEDS: Vancomycin 1gm in NS 250ml 1 GM/250 ML BAG IVPB SCH (05:42)
[2016-07-15] MEDS: Pantoprazole 40 mg EC Tab PO SCH (05:42)
[2016-07-15] MEDS: Enoxaparin 40 mg Syringe SC SCH (05:42)
[2016-07-15] MEDS: Olopatadine 0.1% Opht Sol OU SCH (09:26)
[2016-07-15] MEDS: Ammonium Lactate 12% Cream (140 g) TOP SCH (09:26)
[2016-07-15] MEDS: Multivitamin Therapeutic Tab PO SCH (09:26)
--- NOTE | 2016-07-15 11:14 | CP.PCM.PN ---
<Belen Holman - Last Filed: 07/15/16 11:32> Subjective - Date & Time of Evaluation Date of Evaluation: 07/15/16 Time of Evaluation: 11:11 - Subjective Subjective: 60 year old male seen at bedside 16 days s/p right leg wound debridement with integra graft application. Patient denies any acute events overnight. He denies any pain to his lower extremities. He states he is being discharged today. Patient denies n/f/v/c/d/sob. Objective - Vital Signs/Intake and Output Vital Signs (last 24 hours): Temp Pulse Resp BP Pulse Ox 98.2 F 57 L 16 105/66 96 07/15/16 05:54 07/15/16 05:54 07/15/16 05:54 07/15/16 05:54 07/15/16 05:54 - Medications Medications: Current Medications Acetaminophen (Tylenol 325mg Tab) 650 mg PO Q4H PRN; Protocol PRN Reason: Pain, Mild (1-3) Chlordiazepoxide (Librium) 10 mg PO Q8 PRN; Protocol PRN Reason: Agitation Vancomycin HCl (Vancomycin 1gm) 1 gm in 250 mls @ 167 mls/hr IVPB 0600,1800 REGIS PRN Reason: Protocol Last Admin: 07/15/16 05:42 Dose: 167 mls/hr Lactic Acid (Lac-Hydrin 12% Cream (140 G)) 0 ea TOP DAILY REGIS Last Admin: 07/15/16 09:26 Dose: 1 applic Multivitamins (Thera Tab) 1 tab PO DAILY REGIS PRN Reason: Protocol Last Admin: 07/15/16 09:26 Dose: 1 tab Olopatadine HCl (Patanol 0.1% Opht Soln) 5 ml OU DAILY REGIS PRN Reason: Protocol Last Admin: 07/15/16 09:26 Dose: 1 drop Ondansetron HCl (Zofran Inj) 4 mg IVP ONCE PRN; Protocol PRN Reason: Nausea/Vomiting Pantoprazole Sodium (Protonix Ec Tab) 40 mg PO 0630 REGIS PRN Reason: Protocol Last Admin: 07/15/16 05:42 Dose: 40 mg - Labs Labs: 07/14/16 09:00 07/14/16 09:00 - Constitutional Appears: Well, Non-toxic, No Acute Distress - Extremities Exam Additional comments: Lower extremity focused exam: Vascular: DP and PT pulses non-palpable, CFT < 5sec, temperature unremarkable. Derm: Left: Superficial venous stasis ulceration to ankle with granular base, minimal serous drainage, no purulence, wound does not probe deep, no signs of cellulitis. Diffuse xerosis of entire leg. Right: anterior rowell is noted to have liquified fibrotic tissue and tendon exposed, with some granular tissue, mild malodor noted, with moderate amount of drainage, no purulences noted, no erythema. The medial ulceration site has granular base with moderate malodor noted, no drainage, no purulence noted. Neuro: Gross sensation diminished. - Neurological Exam Neurological Exam: Alert, Awake, Oriented x3 - Psychiatric Exam Psychiatric exam: Normal Affect, Normal Mood Assessment and Plan - Assessment and Plan (Free Text) Assessment: 60 year old male seen at bedside 16 days s/p right leg wound debridement and graft application, and left leg superficial venous stasis ulceration Plan: patient examined and evaluated discussed with attending, Dr. Almazan chart, labs, vitals reviewed;afebrile right LE cleaned with sterile saline, dressed with foam dressing, kerlix, and CAM walker left LE ulceration cleansed with normal sterile saline, dressed with lac-hydrin , lotion, and kerlix Patient to keep CAM walker on RLE at all times to prevent excess movement continue IV abx as per ID patient to follow up in [facility] on Monday <Chuckie Almazan - Last Filed: 07/16/16 07:40> Objective - Vital Signs/Intake and Output Vital Signs (last 24 hours): Temp Pulse Resp BP Pulse Ox 98 F 68 18 103/65 99 07/15/16 10:00 07/15/16 10:00 07/15/16 10:00 07/15/16 10:00 07/15/16 10:00 - Labs Labs: 07/14/16 09:00 07/14/16 09:00 Attending/Attestation - Attestation I have personally seen and examined this patient.: Yes I have fully participated in the care of the patient.: Yes
--- NOTE | 2016-07-15 13:20 | PN ---
DATE: 07/15/2016 The patient is in bed in no acute distress, nontoxic. PHYSICAL EXAMINATION: VITAL SIGNS: Temperature is 98, blood pressure is 105/70, respiratory rate 16. HEENT: Unremarkable. NECK: Supple. LUNGS: Decreased breath sounds. HEART: Normal S1, S2. ABDOMEN: Soft, nontender. LABORATORY EXAMINATION: Reveals a white count of 10, hemoglobin of 13. Chemistries reveal the patie nt has vanco trough of 13.8. Blood cultures are negative. Dr. Belen Holman' note is reviewed. ASSESSMENT AND PLAN: A 60-year-old with sepsis secondary to infected right ankle ulcer and skin and skin structure infection and myositis exposed to tendon and no evidence of osteo on MRI. We will bailee at with vancomycin. Today is day #____. We will discontinue the vancomycin and switch to p.o. doxyc ycline for 5 days at 100 mg p.o. b.i.d. Davide Powell MD cc: 350 TT: 07/15/2016 13:20:15 Confirmation # [id number] Dictation # [id number] sn
--- NOTE | 2016-07-15 13:46 | PN ---
DATE: 07/14/2016 A 60-year-old male in TCU receiving IV vancomycin. Seems doing better. Walking better with the new boot for his right leg. The cast is off, a boot is put on, which is automation qa tester and patient seems moving better with that and using the cane only. Has no chest pain, no short of breath, no nausea, no vomi ting. PHYSICAL EXAMINATION: VITAL SIGNS: Temperature 98.7, heart rate 52, blood pressure 107/71, respirations 18, saturation 96% on room air. HEAD AND NECK: Normal. No JVD, no thyromegaly. CHEST: Clear, good entry. CARDIAC: First sound, second sound normal. ABDOMEN: Soft, obese, nontender. EXTREMITIES: Right leg, there is a boot wrapped around the leg with gauze and left leg also there is above ankle gauze all the way down to the foot and the skin above that is chronic venous stasis. IMPRESSION AND PLAN: 1. Right leg cellulitis. Continue vancomycin. 2. Status post full thickness skin grafting, seems doing okay. Continue local wound care as per Dr. Escamilla and continue walking with cane and continue physical therapy as outpatient and at home. 3. History of alcohol abuse, stable. Continue gastrointestinal and deep venous thrombosis prophylax is. Follow up as outpatient. Garth Nelson MD cc: 223 TT: 07/15/2016 13:45:42 Confirmation # [id number] Dictation # [id number] sn
[2016-07-15 14:40] VITALS: BP 103/65; PULSE 68; RESP 18; TEMP 98; O2SAT 99
--- NOTE | 2016-07-17 09:12 | DS ---
A 60-year-old male admitted to the TCU for gait training, IV antibiotic vancomycin, and wound care by Dr. Escamilla. The patient seems stable. He feels comfortable on discharge, able to ambulate with a walker. During the hospitalization, the patient initially had a cast on that right leg, which was heavy and causing trouble ambulating while he is doing physical therapy. A few days later, the cast changed by differ ent one modified to help him walk, but unfortunately, it was not helping him. End of the week, the p atient changed into service superintendent cast wrapped with gauze, and that was better until finally a boot with dr ontiveros change has been applied, and the patient seems to be doing well. The patient is stable. No chest pain, no shortness of breath. His gait is better. His ambulation i s much better. He is off IV vancomycin and will be given doxycycline 100 mg p.o. b.i.d. for 5 more d ays. During hospitalization, there were not any withdrawal symptoms of alcohol or DTs. The patient was stable. He did have both eyes, some mild allergic conjunctivitis, which improved with Patanol. The patient also had a wound dressing change every day, and seems to be doing well. PHYSICAL EXAMINATION ON DISCHARGE: VITAL SIGNS: Discharge date 07/15/2016: Temperature 98, heart rate 68, blood pressure 105/66, respir ations 16, saturation 99%. HEAD AND NECK: Normal. No JVD, no thyromegaly. CHEST: Clear, good air entry. CARDIAC: First and second sounds normal. ABDOMEN: Soft, nontender. EXTREMITIES: Right leg wrapped with gauze and a boot. Left leg is also wrapped with gauze and up to above the ankle area, and the skin noted above that has some chronic stasis dermatitis. LABORATORY DATA: According to the labs here, chemistry shows sodium 138, potassium 3.8, chloride 101 , bicarb 28, BUN 14, creatinine 0.9, blood sugar 158. Liver function test is normal. White count 10 .9, hemoglobin 16.9, hematocrit 39.6, platelets 238. Vancomycin trough was 5. IMPRESSION AND PLAN: 1. Cellulitis, right leg. Continue vancomycin, switch to p.o. doxycycline for 5 more days. 2. Right leg full-thickness tear, status post grafting by Dr. Escamilla. Continue local wound care. 3. Chronic venous stasis. 4. Bilateral hip arthritis, left hip replacement, chronic back osteoarthritis. 5. Gait disorder. PLAN: To discharge the patient and follow up as outpatient for physical therapy, walker, and gait tr colin. Risks of fall explained to the patient. He is much better than before. He is more steady, and I will see him in the office within a week, and follow up with Dr. Escamilla. Garth Nelson MD cc: 223 TT: 07/17/2016 09:11:54 girma
== END 2016-07-15 18:14 | disposition home or self-care (01) | DRG 872 ==
LOC: TRCU 16:54
PROVIDERS: ADMIT Internal Medicine; ATTEND Internal Medicine
PROC: F08Z2ZZ Grooming/Personal Hygiene Treatment (ICD-10-PCS; principal; 2016-07-06)
PROC: F08Z1ZZ Dressing Techniques Treatment (ICD-10-PCS; 2016-07-06)
PROC: F08Z0ZZ Bathing/Showering Techniques Treatment (ICD-10-PCS; 2016-07-06)
PROC: F08Z4ZZ Home Management Treatment (ICD-10-PCS; 2016-07-06)
PROC: F07Z9ZZ Gait Training/Functional Ambulation Treatment (ICD-10-PCS; 2016-07-06)
PROC: F07M6ZZ Therapeutic Exercise Treatment of Musculoskeletal System - Whole Body (ICD-10-PCS; 2016-07-06)
DX: A41.9 Sepsis, unspecified organism (principal); L97.319 Non-pressure chronic ulcer of right ankle with unspecified severity; I10 Essential (primary) hypertension; L03.115 Cellulitis of right lower limb; L97.329 Non-pressure chronic ulcer of left ankle with unspecified severity; I83.009 Varicose veins of unspecified lower extremity with ulcer of unspecified site; H10.10 Acute atopic conjunctivitis, unspecified eye; I73.9 Peripheral vascular disease, unspecified; I87.2 Venous insufficiency (chronic) (peripheral); I87.8 Other specified disorders of veins; I89.0 Lymphedema, not elsewhere classified; M16.0 Bilateral primary osteoarthritis of hip; M60.9 Myositis, unspecified; Z96.642 Presence of left artificial hip joint; Z87.81 Personal history of (healed) traumatic fracture; B95.62 Methicillin resistant Staphylococcus aureus infection as the cause of diseases classified elsewhere; Z87.898 Personal history of other specified conditions; L85.3 Xerosis cutis